=== PATIENT | male | born 1970 | race African-American/Black ===

== ENCOUNTER 2017-06-04 08:51 | Inpatient (IN) | payer OTHER ==
[~2017-06-04] VITALS: Ht 177.8 cm; Wt 101.5 kg
[~2017-06-04 08:51] MED LIST: AMLO5 PO; ESCI10TA PO; FLUO-1 PO; LURA40 PO; PANT40TA3 PO; QUET1TAB7 PO; SERO100T PO; TRAZ50TA12 PO
[2017-06-04 08:53] VITALS: BP 185/114; PULSE 103; RESP 16; TEMP 97.9; O2SAT 97
[2017-06-04] MEDS ORDERED: QUET5TAB PO (09:14)
[2017-06-04] MEDS ORDERED: QUET1TAB11 PO (09:14)
[2017-06-04] MEDS ORDERED: HYDR12.56 PO (09:14)
--- NOTE | 2017-06-04 09:18 | PD ---
HPI Chief Complaint: Psychiatric Symptoms Time Seen by Provider: 09:14 Travel History International Travel<30 days: No Contact w/Intl Traveler<30days: No Traveled to known affect area: No History of Present Illness HPI 47-year-old male presents to emergency Department voluntarily for psychiatric evaluation. He is having suicidal thoughts. Has a plan of jumping off a bridge because he cannot swim or taking pills. History of suicidal attempt. Reports feeling severely depressed and has been crying uncontrollably. Says his medications aren't working for him. Denies visual or auditory hallucinations. Denies illicit drug use. Reports occasional alcohol use. Says he has general pain all over which he says comes and goes and is normal. Denies any other medical complaints. Denies recent illness with fever, chills, nausea, vomiting. Denies chest pain, shortness of breath, abdominal pain, change in urinary or stool. PFSH Past Medical History Depression: Yes Cancer: No Cardiovascular Problems: Yes (HTN) Diminished Hearing: No Endocrine: No Genitourinary: No Hypertension: Yes Immune Disorder: No Musculoskeletal: No Neurologic: No Psychiatric: Yes Reproductive: No Respiratory: No ?: Not Past Surgical History Cholecystectomy: Yes (2007) Social History Alcohol Use: Yes (occasional) Tobacco Use: No Substance Use: No Allergies-Medications (Allergen,Severity, Reaction): Coded Allergies: No Known Allergies (Unverified , 09/03/12) Reported Meds & Prescriptions Reported Meds & Active Scripts Active Reported Hydrochlorothiazide 12.5 Mg Tab 12.5 Mg PO DAILY Quetiapine (Quetiapine Fumarate) 50 Mg Tab 50 Mg PO DAILY Quetiapine (Quetiapine Fumarate) 400 Mg Tab 450 Mg PO HS Review of Systems Except as stated in HPI: all other systems reviewed are Neg Physical Exam Narrative GENERAL: Well-nourished, well-developed black male patient, in no acute distress SKIN: Warm and dry. HEAD: Atraumatic. Normocephalic. EYES: Pupils equal and round. ENT: Mucosa pink and moist. NECK: Supple. Trachea midline. CARDIOVASCULAR: Regular rate and rhythm. No murmur appreciated. RESPIRATORY: No accessory muscle use. Clear to auscultation. Breath sounds equal bilaterally. GASTROINTESTINAL: Abdomen soft, non-tender, nondistended. Hepatic and splenic margins not palpable. Bowel sounds are active 4 quadrants. MUSCULOSKELETAL: No obvious deformities. No clubbing. No cyanosis. No edema. BACK: No CVA tenderness. NEUROLOGICAL: Awake and alert. Oriented 3. No obvious cranial nerve deficits. Motor grossly within normal limits. Normal speech. Moves all extremities. 5/5 strength to all extremities. PSYCHIATRIC: No delusional thought processes. No hallucinations. Data Data Last Documented VS Vital Signs Date Time Temp Pulse Resp B/P (MAP) Pulse Ox O2 Delivery O2 Flow Rate FiO2 06/04/17 08:53 97.9 103 16 185/114 (137) 97 Orders Orders Complete Blood Count With Diff (06/04/17 09:17) Comprehensive Metabolic Panel (06/04/17 09:17) Psych Screen (06/04/17 09:17) Drug Screen, Random Urine (06/04/17 09:17) Alcohol (Ethanol) (06/04/17 09:17) Salicylates (Aspirin) (06/04/17 09:17) Tylenol (Acetaminophen) (06/04/17 09:17) Ibuprofen (Motrin) (06/04/17 09:30) Labs Laboratory Tests Test 06/04/17 09:20 [facility] Medical Decision Making Medical Screen Exam Complete: Yes Emergency Medical Condition: Yes Medical Record Reviewed: Yes Differential Diagnosis Encounter for psychiatric evaluation, medical clearance for psychiatric evaluation, suicidal ideation Narrative Course 47-year-old male presents voluntarily for psychiatric evaluation for suicidal ideation. Patient complaining of generalized body pain which she says is normal for him and comes and goes. Ibuprofen ordered. Physical examination and vital signs are essentially unremarkable. Patient has no medical complaints to report. Psych screen has been ordered. If the laboratory results are unremarkable, the patient will be medically cleared for psychiatric evaluation and disposition. Diagnosis Primary Impression: Medical clearance for psychiatric admission Condition: Stable AnishajolantaNgoc FONG Jun 04, 2017 09:18
[2017-06-04] MEDS ORDERED: IBUPROFEN 800 MG TAB PO ONE (09:30)
[2017-06-04 09:35] LABS: AUTOMATED NEUTROPHIL # 3.8 TH/MM3 (1.8-7.7); BASOPHIL % 0.8 % (0.0-2.0); EOSINOPHIL # 0.2 TH/MM3 (0-0.4); EOSINOPHIL % 2.7 % (0.0-4.0); HEMO FLAGS DIFF FINAL; LYMPH % 24.3 % (9.0-44.0); LYMPHOCYTE # 1.4 TH/MM3 (1.0-4.8); MEAN CELL VOLUME 87.2 FL (80.0-100.0); MEAN CORPUSCULAR HEMOGLOBIN 29.3 PG (27.0-34.0); MEAN CORPUSCULAR HGB CONC 33.6 % (32.0-36.0); MONO % 5.8 % (0.0-8.0); NEUT % 66.4 % (16.0-70.0); PLATELET COUNT 218 TH/MM3 (150-450); RED BLOOD COUNT 4.36 MIL/MM3 (4.50-5.90); RED CELL DISTRIBUTION WIDTH 14.4 % (11.6-17.2); WHITE BLOOD COUNT 5.7 TH/MM3 (4.0-11.0)
[2017-06-04 09:37] VITALS: BP 157/93; PULSE 73; RESP 18; O2SAT 100
[2017-06-04 09:51] LABS: ANION GAP 8 MEQ/L (5-15); AST (GOT) 21 U/L (15-37); BICARBONATE 25.4 MEQ/L (21.0-32.0); BLOOD UREA NITROGEN 9 MG/DL (7-18); CHLORIDE 107 MEQ/L (98-107); GLOMERULAR FILTRATION RATE 91 ML/MIN (>89); POTASSIUM 3.7 MEQ/L (3.5-5.1); SODIUM (NA) 140 MEQ/L (136-145)
[2017-06-04 09:55] LABS: ALKALINE PHOSPHATASE 61 U/L (45-117); ALT (GPT) 23 U/L (12-78); TOTAL BILIRUBIN ADULT 0.4 MG/DL (0.2-1.0)
[2017-06-04 10:05] LABS: ACETAMINOPHEN LESS THAN 2.0 MCG/ML (10.0-30.0); ALCOHOL LESS THAN 3 MG/DL (0-5)
[2017-06-04 11:58] VITALS: BP 146/87; PULSE 65; RESP 17; O2SAT 100
[2017-06-04 14:48] VITALS: BP 153/95; PULSE 63; RESP 17; O2SAT 100
--- NOTE | 2017-06-04 15:52 | PD ---
History of Present Illness Chief Complaint: Psychiatric Symptoms Time Seen by Provider: 15:05 Travel History International Travel<30 Days: No Contact w/Intl Traveler<30days: No Known affected area: No Legal Status Legal Status: Voluntary History of Present Illness: History of Present Illness 47-year-old male with history of bipolar disorder, who presents to emergency Department voluntarily for psychiatric evaluation. He reports that for the past 2 -to 3 months he has been experiencing increase in psychiatric symptoms with increase in sadness, increase difficulty with sleep, anhedonia, decreased energy, irritability, difficulty being around people crying episodes, increase in thoughts of wanting to end his life with thoughts of jumping off a bridge since he cannot swim or of taking his pills. He increased his psychiatric medications on his own but found no benefit and has continued to feel depressed. Today he reports increase in suicidal ideation as well as homicidal ideation with thoughts of " wanting to hurt other people". He reports that for the past few days he has been going to different bridges. He denies that he made any attempts. He reports that he has been compliant with prescribed medications and is followed at the [place] outpatient clinic. He does report that his medications were changed at the [facility] and he is only prescribed Seroquel 50 mg po BID and Seroquel 300 mg po at [facility]. Denies any alcohol use. Only identifiable stressor is the breakup of his relationship with his girlfriend 1 month ago. Patient has one previous psychiatric admission to [facility] in 2016 under the care of Dr. Tarango after a suicide attempt by overdose. Current toxicology is negative for any substances. Denies alcohol use. PFSH Past Medical History Depression: Yes Cancer: No Cardiovascular Problems: Yes (HTN) Diminished Hearing: No Endocrine: No Genitourinary: No Hypertension: Yes Immune Disorder: No Musculoskeletal: No Neurologic: No Psychiatric: Yes Reproductive: No Respiratory: No ?: Not Past Surgical History Cholecystectomy: Yes (2007) Psychiatric History Psychiatric History Hx Psychiatric Treatment: Hospitalized in 2016 after sucide attempt by overdose. Followed psychiatric care at the [place] clinic. . 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 Served in the [employer] from 1988 to 1992 and from 1996 to 2002. Hx Alcohol Use: Yes (occasional) Hx Tobacco Use: No Hx Substance Use: No Hx of Substance Use Treatment: No Family Psychiatric History Negative Allergies-Medications (Allergen,Severity, Reaction): Coded Allergies: No Known Allergies (Unverified , 09/03/12) Reported Meds & Prescriptions Reported Meds & Active Scripts Active Reported Hydrochlorothiazide 12.5 Mg Tab 12.5 Mg PO DAILY Quetiapine (Quetiapine Fumarate) 50 Mg Tab 50 Mg PO DAILY Quetiapine (Quetiapine Fumarate) 400 Mg Tab 450 Mg PO HS Review of Systems Except as stated in HPI: all other systems reviewed are Neg Mental Status Examination Appearance: Appropriate, Well dressed/well groomed Consciousness: Alert Orientation: x4 Motor Activity: Normal gait Speech: Unremarkable Language: Adequate Fund of Knowledge: Adequate Attention and Concentration: Adequate Memory: Unremarkable Mood: Sad, Irritable Affect: Sad Thought Process & Associations: Intact, Logical, Goal directed Thought Content: Appropriate Hallucination Type: None Delusion Type: None Suicidal Ideation: Yes Suicidal Plan: Yes (to overdose or jump off bridge. ) Suicidal Intention: No Homicidal Ideation: Yes Homicidal Plan: No Homicidal Intention: No Insight: Adequate Judgment: Adequate [facility] Medical Decision Making Medical Record Reviewed: Yes Assessment/Plan 47-year-old male with history of bipolar disorder who presents to emergency Department voluntarily for psychiatric evaluation. He reports that for the past 2 -to 3 months he has been experiencing increase in psychiatric symptoms including increase in sadness, increase difficulty with sleep, anhedonia, decreased energy, irritability, difficulty being around people crying episodes , increase in thoughts of wanting to end his life with thoughts of jumping off a bridge since he cannot swim or of taking his pills. Today he reports increase in suicidal ideation as well as homicidal ideation with thoughts of " wanting to hurt other people". He reports that for the past few days he has been going to different bridges. He denies that he made any attempts. He reports that he has been compliant with prescribed medications and is followed at the [place] outpatient clinic. He meets criteria for inpatient psychiatric treatment and contracts for safety while in [place]. he will be admitted to psychiatry for further evaluation, medication adjustment, to maintain safety. Remains on a voluntary basis. Orders Orders Complete Blood Count With Diff (06/04/17 09:17) Comprehensive Metabolic Panel (06/04/17 09:17) Psych Screen (06/04/17 09:17) Drug Screen, Random Urine (06/04/17:17) Alcohol (Ethanol) (06/04/17 09:17) Salicylates (Aspirin) (06/04/17 09:17) Tylenol (Acetaminophen) (06/04/17 09:17) Ibuprofen (Motrin) (06/04/17 09:30) Results Vital Signs Date Time Temp Pulse Resp B/P (MAP) Pulse Ox O2 Delivery O2 Flow Rate FiO2 06/04/17 14:48 63 17 153/95 (114) 100 06/04/17 11:58 65 17 146/87 (106) 100 Room Air 06/04/17 09:37 73 18 157/93 (114) 100 Room Air 06/04/17 08:53 97.9 103 16 185/114 (137) 97 Laboratory Tests Test 06/04/17 09:20 06/04/17 09:25 White Blood Count 5.7 Red Blood Count 4.36 Hemoglobin 12.8 Hematocrit 38.0 Mean Corpuscular Volume 87.2 Mean Corpuscular Hemoglobin 29.3 Mean Corpuscular Hemoglobin Concent 33.6 Red Cell Distribution Width 14.4 Platelet Count 218 Mean Platelet Volume 8.4 Neutrophils (%) (Auto) 66.4 Lymphocytes (%) (Auto) 24.3 Monocytes (%) (Auto) 5.8 Eosinophils (%) (Auto) 2.7 Basophils (%) (Auto) 0.8 Neutrophils # (Auto) 3.8 Lymphocytes # (Auto) 1.4 Monocytes # (Auto) 0.3 Eosinophils # (Auto) 0.2 Basophils # (Auto) 0.0 CBC Comment DIFF FINAL Differential Comment Blood Urea Nitrogen 9 Creatinine 1.06 Random Glucose 101 Total Protein 7.6 Albumin 3.9 Calcium Level 8.7 Alkaline Phosphatase 61 Aspartate Amino Transf (AST/SGOT) 21 Alanine Aminotransferase (ALT/SGPT) 23 Total Bilirubin 0.4 Sodium Level 140 Potassium Level 3.7 Chloride Level 107 Carbon Dioxide Level 25.4 Anion Gap 8 Estimat Glomerular Filtration Rate 91 Salicylates Level 2.2 Acetaminophen Level LESS THAN 2.0 Ethyl Alcohol Level LESS THAN 3 Urine Opiates Screen NEG Urine Barbiturates Screen NEG Urine Amphetamines Screen NEG Urine Benzodiazepines Screen NEG Urine Cocaine Screen NEG Urine Cannabinoids Screen NEG Diagnosis Primary Impression: bipolar disorder Admitting Information Admitting Physician Requests: Admit Condition: Stable Lu Garg [facility] Jun 04, 2017 15:52
[2017-06-04] MEDS ORDERED: MAGNESIUM HYDROXIDE SUSP 30 ML CUP PO PRN (16:30)
[2017-06-04] MEDS ORDERED: ACETAMINOPHEN 325 MG TAB PO PRN (16:30)
[2017-06-04] MEDS ORDERED: ALUMINUM/MAGNESIUM/SIMETH 30 ML CUP PO PRN (16:30)
[2017-06-04 17:15] VITALS: BP 180/106; PULSE 64; RESP 16; TEMP 97.6; O2SAT 100
[2017-06-04] MEDS ORDERED: PILL SPLITTER OTHER PRN (17:30)
[2017-06-04] MEDS ORDERED: QUEtiapine FUMARATE 100 MG TAB PO SCH (21:00)
[2017-06-05 05:51] VITALS: BP 142/81; PULSE 70; RESP 18; TEMP 97.4; O2SAT 99
--- NOTE | 2017-06-05 08:41 | PD.CONS ---
[facility] By Reason for Consult hypertension management Primary Care Physician [facility] Diagnoses: History of Present Illness patient is a 47 y/o male with history of bipolar disorder and hypertension who was admitted to the psych unit because of suicidal thoughts. medicine was consulted for blood pressure management. he says that his blood pressure fluctuates at home. at the time of my evaluation he was in no distress. denies headache, chest pain or dizziness. still with some suicidal thoughts. Review of Systems Constitutional: DENIES: Fever, Weight loss, Chills, Night Sweats Eyes: DENIES: Blurred vision, Diplopia, Vision loss, Double Vision Ears, nose, mouth, throat: DENIES: Tinnitus, Vertigo, Throat pain, Epistaxis Respiratory: DENIES: Apneas, Cough, Snoring, Wheezing, Hemoptysis, Sputum production, Shortness of breath Cardiovascular: DENIES: Chest pain, Palpitations, Syncope, Dyspnea on Exertion , PND, Lower Extremity Edema, Orthopnea, Claudication Gastrointestinal: DENIES: Abdominal pain, Black stools, Bloody stools, Constipation, Diarrhea, Nausea, Vomiting, Difficulty Swallowing, Anorexia Genitourinary: DENIES: Urinary frequency, Urgency, Hematuria, Dysuria Musculoskeletal: DENIES: Joint pain, Muscle aches, Stiffness, Joint Swelling Integumentary: DENIES: Rash Neurologic: DENIES: Abnormal gait, Headache, Localized weakness, Paresthesias, Seizures, Speech Problems, Tremor, Poor Balance Psychiatric: COMPLAINS OF: Suicidal Ideation, DENIES: Anxiety, Confusion, Mood changes, Depression, Hallucinations, Agitation, Homicidal Ideation, Delusions Past Family Social History Allergies: Coded Allergies: No Known Allergies (Unverified , 09/03/12) Past Medical History hypertension bipolar disordere Past Surgical History cholecystectomy Reported Medications Hydrochlorothiazide 12.5 Mg Tab 12.5 Mg PO DAILY Quetiapine (Quetiapine Fumarate) 50 Mg Tab 50 Mg PO DAILY Quetiapine (Quetiapine Fumarate) 400 Mg Tab 450 Mg PO HS Active Ordered Medications Current Medications Ibuprofen (Motrin) 800 mg ONCE ONCE PO Last administered on 06/04/17t 09:38; Start 06/04/17 at 09:30; Stop 06/04/17 at 09:31; Status DC Acetaminophen (Tylenol) 650 mg Q4H PRN PO Pain 1-5 or Temp >101F; Start at 16:30 Magnesium Hydroxide (Milk Of Magnesia Liq) 30 ml DAILY PRN PO CONSTIPATION; Start 06/04/17 at 16:30 Al Hydrox/Mg Hydrox/Simethicone (Mag-Al Plus Susp Liq) 30 ml Q6H PRN PO DYSPEPSIA; Start 06/04/17 at 16:30 Hydrochlorothiazide (Microzide) 12.5 mg DAILY PO ; Start 06/05/17 at 09:00 Quetiapine Fumarate (SEROquel) 50 mg DAILY PO ; Start 06/05/17 at 09:00 Quetiapine Fumarate (SEROquel) 450 mg HS PO Last administered on 06/04/17t 21: 07; Start 06/04/17 at 21:00 Miscellaneous (Pill Splitter) 1 ea UNSCH PRN OTHER SEE LABEL COMMENTS; Start 06/04/17 at 17:30 Family History not relevant to this consult. Social History no smoking,drinking or drug abuse. Physical Exam Vital Signs Vital Signs Date Time Temp Pulse Resp B/P (MAP) Pulse Ox O2 Delivery O2 Flow Rate FiO2 06/05/17 05:51 97.4 70 18 142/81 (101) 99 06/04/17 17:15 97.6 64 16 180/106 (130) 100 06/04/17 14:48 63 17 153/95 (114) 100 06/04/17 11:58 65 17 146/87 (106) 100 Room Air 06/04/17 09:37 73 18 157/93 (114) 100 Room Air 06/04/17 08:53 97.9 103 16 185/114 (137) 97 Physical Exam GENERAL: This is a well-nourished, well-developed patient, in no apparent distress. SKIN: No rashes, ecchymoses or lesions. Cool and dry. HEAD: Atraumatic. Normocephalic. No temporal or scalp tenderness. EYES: Pupils equal round and reactive. Extraocular motions intact. No scleral icterus. No injection or drainage. ENT: Nose without bleeding, purulent drainage or septal hematoma. Throat without erythema, tonsillar hypertrophy or exudate. Uvula midline. Airway patent. NECK: Trachea midline. No JVD or lymphadenopathy. Supple, nontender, no meningeal signs. CARDIOVASCULAR: Regular rate and rhythm without murmurs, gallops, or rubs. RESPIRATORY: Clear to auscultation. Breath sounds equal bilaterally. No wheezes , rales, or rhonchi. GASTROINTESTINAL: Abdomen soft, non-tender, nondistended. No hepato-splenomegaly , or palpable masses. No guarding. MUSCULOSKELETAL: Extremities without clubbing, cyanosis, or edema. No joint tenderness, effusion, or edema noted. No calf tenderness. Negative Homans sign bilaterally. NEUROLOGICAL: Awake and alert. Cranial nerves II through XII intact. Motor and sensory grossly within normal limits. Five out of 5 muscle strength in all muscle groups. Normal speech. Laboratory Laboratory Tests Test 06/04/17 09:20 06/04/17 09:25 White Blood Count 5.7 Red Blood Count 4.36 Hemoglobin 12.8 Hematocrit 38.0 Mean Corpuscular Volume 87.2 Mean Corpuscular Hemoglobin 29.3 Mean Corpuscular Hemoglobin Concent 33.6 Red Cell Distribution Width 14.4 Platelet Count 218 Mean Platelet Volume 8.4 Neutrophils (%) (Auto) 66.4 Lymphocytes (%) (Auto) 24.3 Monocytes (%) (Auto) 5.8 Eosinophils (%) (Auto) 2.7 Basophils (%) (Auto) 0.8 Neutrophils # (Auto) 3.8 Lymphocytes # (Auto) 1.4 Monocytes # (Auto) 0.3 Eosinophils # (Auto) 0.2 Basophils # (Auto) 0.0 CBC Comment DIFF FINAL Differential Comment Blood Urea Nitrogen 9 Creatinine 1.06 Random Glucose 101 Total Protein 7.6 Albumin 3.9 Calcium Level 8.7 Alkaline Phosphatase 61 Aspartate Amino Transf (AST/SGOT) 21 Alanine Aminotransferase (ALT/SGPT) 23 Total Bilirubin 0.4 Sodium Level 140 Potassium Level 3.7 Chloride Level 107 Carbon Dioxide Level 25.4 Anion Gap 8 Estimat Glomerular Filtration Rate 91 Salicylates Level 2.2 Acetaminophen Level LESS THAN 2.0 Ethyl Alcohol Level LESS THAN 3 Urine Opiates Screen NEG Urine Barbiturates Screen NEG Urine Amphetamines Screen NEG Urine Benzodiazepines Screen NEG Urine Cocaine Screen NEG Urine Cannabinoids Screen NEG Result Diagram: 06/04/1791906/04/17919 Assessment and Plan Assessment and Plan A/P - hypertension- not optimally controlled. continue HCTZ- start amlodipine- clonidine as needed. continue to monitor and adjust the regimen as needed. -bipolar disorder with suicidal thoughts- management per psych. thank you for the consult. Discussed Condition With the patient. Jose Telles MD Jun 05, 2017 08:41
[2017-06-05] MEDS ORDERED: QUEtiapine FUMARATE 25 MG TAB PO SCH (09:00)
[2017-06-05] MEDS: HYDROCHLOROTHIAZIDE 12.5 MG CAP PO SCH (09:28)
[2017-06-05] MEDS: amLODIPine BESYLATE 5 MG TAB PO SCH (09:31)
[2017-06-05 10:26] LABS: ANION GAP 6 MEQ/L (5-15); BICARBONATE 25.9 MEQ/L (21.0-32.0); BLOOD UREA NITROGEN 12 MG/DL (7-18); CHLORIDE 107 MEQ/L (98-107); GLOMERULAR FILTRATION RATE 82 ML/MIN (>89); POTASSIUM 3.8 MEQ/L (3.5-5.1); SODIUM (NA) 139 MEQ/L (136-145)
[2017-06-05 10:36] LABS: HDL CHOLESTEROL 38.6 MG/DL (40.0-60.0); LDL CHOLESTEROL 69 MG/DL (0-99)
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
--- NOTE | 2017-06-05 16:03 | EKG ---
Date Performed: 06/05/2017 Time Performed: 12:49:51 PTAGE: 47 years EKG: Sinus rhythm LEFT VENTRICULAR HYPERTROPHY AND ST-T CHANGE ABNORMAL ECG PREVIOUS TRACING : 07/16/2016 20.39 Compared to prior tracing no significant change DOCTOR: Ramon Wang Interpretating Date/Time 06/05/2017 16:03:14
[2017-06-05] MEDS: QUEtiapine FUMARATE 25 MG TAB PO SCH (16:10)
[2017-06-05 16:12] VITALS: BP 138/83; PULSE 63
[2017-06-05 17:45] LABS: HEMOGLOBIN A1a 1.6 %; HEMOGLOBIN A1b 1.4 %; HEMOGLOBIN Ao 85.7 %; HEMOGLOBIN LA1C 1.8 %; HEMOGLOBIN P3 3.3 %
[2017-06-05 18:39] VITALS: BP 184/77; PULSE 76; RESP 17; TEMP 98.3; O2SAT 99
[2017-06-05] MEDS: QUEtiapine FUMARATE 200 MG TAB PO SCH (21:00)
[2017-06-06] MEDS: QUEtiapine FUMARATE 25 MG TAB PO SCH ×2 (06:00→16:00)
[2017-06-06 06:03] VITALS: BP 130/76; PULSE 76; RESP 18; TEMP 97.3
[2017-06-06] MEDS: amLODIPine BESYLATE 5 MG TAB PO SCH (08:42)
[2017-06-06] MEDS: HYDROCHLOROTHIAZIDE 12.5 MG CAP PO SCH (08:42)
[2017-06-06] MEDS: SERTRALINE HCL 50 MG TAB PO SCH (10:45)
--- NOTE | 2017-06-06 11:12 | HHI.PR ---
Subjective Remarks still with depressed mood. no chest pain, headache or dizziness. BP trend noted. Objective Vitals Vital Signs Date Time Temp Pulse Resp B/P (MAP) Pulse Ox O2 Delivery O2 Flow Rate FiO2 06/06/17 06:03 97.3 76 18 130/76 (94) 06/05/17 18:39 98.3 76 17 184/77 (112) 99 06/05/17 16:12 63 138/83 (101) Result Diagram: 06/04/17 0920 06/05/17 0945 Objective Remarks GENERAL: This is a well-nourished, well-developed patient, in no apparent distress. CARDIOVASCULAR: Regular rate and regular rhythm without murmurs, gallops, or rubs. RESPIRATORY: Clear to auscultation. Breath sounds equal bilaterally. No wheezes , rales, or rhonchi. GASTROINTESTINAL: Abdomen soft, non-tender, nondistended. Normal, active bowel sounds MUSCULOSKELETAL: Extremities without clubbing, cyanosis, or edema. NEURO: Alert & Oriented x4 to person, place, time, situation. Moves all ext x4 Medications and IVs Current Medications Ibuprofen (Motrin) 800 mg ONCE ONCE PO Last administered on 06/04/17 09:38; Start 06/04/17 at 09:30; Stop 06/04/17 at 09:31; Status DC Acetaminophen (Tylenol) 650 mg Q4H PRN PO Pain 1-5 or Temp >101F; Start at 16:30 Magnesium Hydroxide (Milk Of Magnesia Liq) 30 ml DAILY PRN PO CONSTIPATION; Start 06/04/17 at 16:30 Al Hydrox/Mg Hydrox/Simethicone (Mag-Al Plus Susp Liq) 30 ml Q6H PRN PO DYSPEPSIA; Start 06/04/17 at 16:30 Hydrochlorothiazide (Microzide) 12.5 mg DAILY PO Last administered on 08:42; Start 06/05/17 at 09:00 Quetiapine Fumarate (SEROquel) 50 mg DAILY PO Last administered on 06/05/17 09:28; Start 06/05/17 at 09:00; Stop 06/05/17 at 11:40; Status DC Quetiapine Fumarate (SEROquel) 450 mg HS PO Last administered on 06/04/17 21: 07; Start 06/04/17 at 21:00; Stop 06/05/17 at 11:40; Status DC Miscellaneous (Pill Splitter) 1 ea UNSCH PRN OTHER SEE LABEL COMMENTS; Start 06/04/17 at 17:30 Amlodipine Besylate (Norvasc) 5 mg DAILY PO Last administered on 06/06/17 08: 42; Start 06/05/17 at 09:00 Clonidine (Catapres) 0.1 mg Q8HR PRN PO SBP> OR = 180, DBP> OR = 100; Start at 08:45 Quetiapine Fumarate (SEROquel) 50 mg DAILY@0600,1600 PO Last administered on 06:00; Start 06/05/17 at 16:00 Quetiapine Fumarate (SEROquel) 400 mg HS PO Last administered on 06/05/17 21: 00; Start 06/05/17 at 21:00 Hydroxyzine HCl (Atarax) 50 mg Q6H PRN PO ANXIETY; Start 06/05/17 at 12:00 Sertraline HCl (Zoloft) 25 mg DAILY PO ; Start 06/06/17 at 10:45; Status UNV A/P Assessment and Plan A/P - hypertension- overall better . continue HCTZ and amlodipine- clonidine as needed. continue to monitor and adjust the regimen as needed; will increase amlodipine tomorrow if BP not optimally controlled. -bipolar disorder with suicidal thoughts- management per psych. Jose Telles MD Jun 06, 2017 11:12
--- NOTE | 2017-06-06 13:12 | PD.TTN ---
Patient Problems 1. Discharge planning 2. Medication compliance 3. Knowledge deficit 4. Lack of coping skills Progress Toward Goals Provider Present: Dr. Tamie Ahuja Provider Input: Patient will have added medication of Wellbutrin and an increase of [place]requ[place] to help with sleep. Nurse(s) Input: Patient endorses lack of sleep and recieved PRN of anti-anxiety medication to help with sleep. Patient has no behavioral issues on the unit. Psychiatric Counselors Present: ASHLEY Weber Psych Therapist Input: Patient has low and does not endorse any change in mood. Patient states that he continues to feel irritible and aggitated during the day. Patient states that he is unable to sleep well at night as well. Group Spec/RT/OT/HU Present: Jose Galdamez OT Group Spec/RT/OT/HU Input: Patient does not attend group. Jessica Castillo [facility]der[facility] Jun 06, 2017 13:12
--- NOTE | 2017-06-06 14:35 | HHI.PYPN ---
Subjective Remarks Patient seen for follow-up, chart reviewed. Patient found playing cards and the day room but was able to engage in interview with scientific writer today. Patient states that he had difficulty sleeping last evening but did not ask for medications available to him for the same. He states that he will try to take medications this unit to help him sleep. Patient stated that his mood continues to be "irritated and aggravated" and recalls having crying spells in the morning prior to his admission. Patient states that he continues to have suicide ideations, last time being this morning and yesterday which lasted all day. Patient reports tolerate medications well and agreed to starting antidepressant medication today. Chief Complaint: depression Review of Systems Except as stated in HPI: all other systems reviewed are Neg Mental Status Examination Appearance: Appropriate, Well dressed/well groomed Consciousness: Alert Orientation: x4 Motor Activity: Normal gait Speech: Unremarkable Language: Adequate Fund of Knowledge: Adequate Attention and Concentration: Adequate Memory: Unremarkable Mood: Sad Affect: Sad, Other Thought Process & Associations: Logical, Linear Thought Content: Appropriate Hallucination Type: Auditory (his name being called. No other hallucinatory material.) Delusion Type: None Suicidal Ideation: Yes Suicidal Plan: No Suicidal Intention: No Homicidal Ideation: No Homicidal Plan: No Homicidal Intention: No Insight: Adequate Judgment: Adequate Results Vitals/IOs Vital Signs Date Time Temp Pulse Resp B/P (MAP) Pulse Ox O2 Delivery O2 Flow Rate FiO2 06/06/17 06:03 97.3 76 18 130/76 (94) 06/05/17 18:39 99 06/04/17 11:58 Room Air Assessment & Plan Problem List: (1) Bipolar disorder, current episode depressed, severe, without psychotic features ICD Codes: F31.4 - Bipolar disorder, current episode depressed, severe, without psychotic features (2) Chronic post-traumatic stress disorder (PTSD) ICD Codes: F43.12 - Post-traumatic stress disorder, chronic Assessment & Plan Patient at this time continues to report depressed mood along with suicide ideations. We'll start sertraline 25 mg by mouth daily with upward titration for depression and PTSD, will continue quetiapine 100 mg daily/400 mg at bedtime for mood stabilization. Continue with her medications. Discharge planning in progress Justification for Cont. Inpt. At risk for further decompensation if at lower level of care Discharge Planning Patient was discharged back to her residence was psychiatrically stable. Request HC Surrog/Guard Advoc?: Peewee Hussein MD Jun 06, 2017 14:35
[2017-06-06] MEDS: cloNIDine HCL 0.1 MG TAB PO PRN (17:53)
[2017-06-06] MEDS: hydrOXYzine HCL 50 MG TAB PO PRN (17:53)
[2017-06-06 17:55] VITALS: BP 163/100; PULSE 75; RESP 16
--- NOTE | 2017-06-06 21:13 | MG ---
cc: LEX VARGHESE M.D. Lab No: Date: 06/06/17 Age: 47 Sex: M Race: REQUESTING PHYSICIAN Dr. Mccormick HISTORY An EEG was obtained on this 47-year-old patient being evaluated for depression. DESCRIPTION The EEG shows prominent 10 per second alpha rhythms the central and posterior head regions. There is low amplitude beta rhythms frontally. In drowsiness the beta activity becomes more widespread and dominant. In hyperventilation the patient is awake and there are no significant change. Photic stimulation showed mild driving response bilaterally. INTERPRETATION Normal awake and drowsy EEG. Lex Varghese MD OFC/EO /6:39 PM /9:06 PM
[2017-06-06 21:15] LABS: AUTOMATED NEUTROPHIL # 2.9 TH/MM3 (1.8-7.7); BASOPHIL % 0.9 % (0.0-2.0); EOSINOPHIL # 0.1 TH/MM3 (0-0.4); EOSINOPHIL % 2.6 % (0.0-4.0); HEMO FLAGS DIFF FINAL; LYMPHOCYTE # 2.1 TH/MM3 (1.0-4.8); MEAN CELL VOLUME 88.5 FL (80.0-100.0); MEAN CORPUSCULAR HEMOGLOBIN 29.7 PG (27.0-34.0); MEAN CORPUSCULAR HGB CONC 33.6 % (32.0-36.0); MONO % 6.4 % (0.0-8.0); NEUT % 52.1 % (16.0-70.0); PLATELET COUNT 206 TH/MM3 (150-450); RED BLOOD COUNT 4.41 MIL/MM3 (4.50-5.90); RED CELL DISTRIBUTION WIDTH 14.2 % (11.6-17.2); WHITE BLOOD COUNT 5.5 TH/MM3 (4.0-11.0)
[2017-06-06 21:39] LABS: FERRITIN 71 NG/ML (26-388); FREE T4 0.72 NG/DL (0.76-1.46); TRANSFERRIN IRON PROFILE 228 MG/DL (200-360)
[2017-06-06] MEDS: QUEtiapine FUMARATE 200 MG TAB PO SCH (22:47)
[2017-06-07 05:13] VITALS: BP 132/66; PULSE 70; RESP 16; TEMP 97.8; O2SAT 98
[2017-06-07] MEDS: QUEtiapine FUMARATE 25 MG TAB PO SCH ×2 (06:14→15:20)
[2017-06-07] MEDS: HYDROCHLOROTHIAZIDE 12.5 MG CAP PO SCH (08:40)
[2017-06-07] MEDS: SERTRALINE HCL 50 MG TAB PO SCH (08:40)
[2017-06-07] MEDS: amLODIPine BESYLATE 5 MG TAB PO SCH (08:44)
[2017-06-07 09:50] VITALS: BP 147/74; PULSE 79; RESP 16
[2017-06-07] MEDS: cloNIDine HCL 0.1 MG TAB PO PRN (15:23)
[2017-06-07] MEDS: hydrOXYzine HCL 50 MG TAB PO PRN (15:23)
--- NOTE | 2017-06-07 16:17 | HHI.PYPN ---
Subjective Remarks Patient seen for follow, chart review. Patient found in the room participate in group was able to interact with writer technical publications for interview today. Patient states that he has been feeling "up and down", reporting having less crying spells in the morning, continues to have suicide ideations last time being this morning which last for a while. Patient reports having had much difficulty with sleep last night stating that he was able to go to sleep at 5 AM but was later woken up by nursing staff to check her vitals. Chief Complaint: depression Review of Systems Except as stated in HPI: all other systems reviewed are Neg Mental Status Examination Appearance: Appropriate, Well dressed/well groomed Consciousness: Alert Orientation: x4 Motor Activity: Normal gait Speech: Unremarkable Language: Adequate Fund of Knowledge: Adequate Attention and Concentration: Adequate Memory: Unremarkable Mood: Sad, Other ("up and down") Affect: Sad, Other Thought Process & Associations: Logical, Linear Thought Content: Appropriate Hallucination Type: None Delusion Type: None Suicidal Ideation: Yes Suicidal Plan: No Suicidal Intention: No Homicidal Ideation: No Homicidal Plan: No Homicidal Intention: No Insight: Adequate Judgment: Adequate Results Labs Test 06/06/17 20:45 White Blood Count 5.5 TH/MM3 Red Blood Count 4.41 MIL/MM3 Hemoglobin 13.1 GM/DL Hematocrit 39.0 % Mean Corpuscular Volume 88.5 FL Mean Corpuscular Hemoglobin 29.7 PG Mean Corpuscular Hemoglobin Concent 33.6 % Red Cell Distribution Width 14.2 % Platelet Count 206 TH/MM3 Mean Platelet Volume 8.4 FL Neutrophils (%) (Auto) 52.1 % Lymphocytes (%) (Auto) 38.0 % Monocytes (%) (Auto) 6.4 % Eosinophils (%) (Auto) 2.6 % Basophils (%) (Auto) 0.9 % Neutrophils # (Auto) 2.9 TH/MM3 Lymphocytes # (Auto) 2.1 TH/MM3 Monocytes # (Auto) 0.4 TH/MM3 Eosinophils # (Auto) 0.1 TH/MM3 Basophils # (Auto) 0.0 TH/MM3 CBC Comment DIFF FINAL Differential Comment Iron Level 45 MCG/DL Total Iron Binding Capacity 319 MCG/DL Percent Iron Saturation 14.1 % Ferritin 71 NG/ML Free Thyroxine 0.72 NG/DL Thyroid Stimulating Hormone 3rd Gen 0.831 uIU/ML Vitals/IOs Vital Signs Date Time Temp Pulse Resp B/P (MAP) Pulse Ox O2 Delivery O2 Flow Rate FiO2 06/07/17 09:50 79 16 147/74 (98) 06/07/17 05:13 97.8 98 06/04/17 11:58 Room Air Assessment & Plan Problem List: (1) Bipolar disorder, current episode depressed, severe, without psychotic features ICD Codes: F31.4 - Bipolar disorder, current episode depressed, severe, without psychotic features (2) Chronic post-traumatic stress disorder (PTSD) ICD Codes: F43.12 - Post-traumatic stress disorder, chronic Assessment & Plan Patient continues to have depressed mood along with difficulty with sleep and continues to endorse suicidal ideations with slightly less intensity. We'll increase sertraline to 50 mg by mouth daily continue quetiapine, will start zolpidem 5 mg by mouth at bedtime for sleep disturbance. Continue to encourage participation in groups and activities while on the unit. Justification for Cont. Inpt. At risk for further decompensation if at lower level of care Discharge Planning Patient likely to return to his residence once psychiatric stable. Request HC Surrog/Guard Advoc?: No Peewee Ahuja MD Jun 07, 2017 16:17
[2017-06-07 16:46] VITALS: BP 154/101; PULSE 72; RESP 17; TEMP 98.3; O2SAT 99
[2017-06-07] MEDS: QUEtiapine FUMARATE 200 MG TAB PO SCH (21:34)
[2017-06-07] MEDS: ZOLPIDEM TARTRATE 5 MG TAB PO SCH (21:34)
[2017-06-08] MEDS: QUEtiapine FUMARATE 25 MG TAB PO SCH ×2 (05:46→15:37)
[2017-06-08 06:40] VITALS: BP 136/78; PULSE 69; RESP 16; TEMP 97.9
[2017-06-08] MEDS: HYDROCHLOROTHIAZIDE 12.5 MG CAP PO SCH (08:23)
[2017-06-08] MEDS: amLODIPine BESYLATE 5 MG TAB PO SCH (08:24)
[2017-06-08] MEDS ORDERED: SERTRALINE HCL 50 MG TAB PO SCH (09:00)
--- NOTE | 2017-06-08 13:14 | HHI.PYPN ---
Subjective Remarks Patient seen for follow-up, chart review. Patient find a room watching television able to engage in interview today. Patient states having slept much better last evening and felt rested. Patient states that his mood continues to be "up and down" and this morning noted to be a little bit irritated but was able to walk away from the environment. Patient states that he feels currently okay continues to have suicidal ideation but noted to be less intense. Patient states that he continues to participate in groups and activities, eating and drinking well, and adverse drug reactions to medications. Patient reported having talked to his friends/process over the phone yesterday which went well. Chief Complaint: depression Review of Systems Except as stated in HPI: all other systems reviewed are Neg Mental Status Examination Appearance: Appropriate, Well dressed/well groomed Consciousness: Alert Orientation: x4 Motor Activity: Normal gait Speech: Unremarkable Language: Adequate Fund of Knowledge: Adequate Attention and Concentration: Adequate Memory: Unremarkable Mood: Sad, Other ("up and down") Affect: Other (restricted) Thought Process & Associations: Logical, Linear Thought Content: Appropriate Hallucination Type: None Delusion Type: None Suicidal Ideation: Yes Suicidal Plan: No Suicidal Intention: No Homicidal Ideation: No Homicidal Plan: No Homicidal Intention: No Insight: Adequate Judgment: Adequate Results Vitals/IOs Vital Signs Date Time Temp Pulse Resp B/P (MAP) Pulse Ox O2 Delivery O2 Flow Rate FiO2 06/08/17 06:40 97.9 69 16 136/78 (97) 06/07/17 16:46 99 06/04/17 11:58 Room Air Assessment & Plan Problem List: (1) Bipolar disorder, current episode depressed, severe, without psychotic features ICD Codes: F31.4 - Bipolar disorder, current episode depressed, severe, without psychotic features (2) Chronic post-traumatic stress disorder (PTSD) ICD Codes: F43.12 - Post-traumatic stress disorder, chronic Assessment & Plan Patient noted to have some improvement in mood, slept better but continues to have suicidal ideations which appear to be lessening now. We'll increase sertraline 100 mg by mouth daily, continue rest medications. Discharge planning in progress Justification for Cont. Inpt. At risk for further decompensation if at lower level of care Discharge Planning Patient likely return back to his residence was psychiatrically stable Request HC Surrog/Guard Advoc?: Peewee Hussein MD Jun 08, 2017 13:13
[2017-06-08 18:12] VITALS: BP 157/87; PULSE 75; RESP 18; TEMP 98.3; O2SAT 98
[2017-06-08] MEDS: hydrOXYzine HCL 50 MG TAB PO PRN (21:32)
[2017-06-08] MEDS: ZOLPIDEM TARTRATE 5 MG TAB PO SCH (21:32)
[2017-06-08] MEDS: QUEtiapine FUMARATE 200 MG TAB PO SCH (21:32)
[2017-06-09 05:33] VITALS: BP 130/77; PULSE 81; RESP 17; TEMP 98.1; O2SAT 99
[2017-06-09] MEDS: QUEtiapine FUMARATE 25 MG TAB PO SCH ×2 (06:29→16:00)
[2017-06-09] MEDS: SERTRALINE HCL 100 MG TAB PO SCH (08:26)
[2017-06-09] MEDS: amLODIPine BESYLATE 5 MG TAB PO SCH (08:26)
[2017-06-09] MEDS: HYDROCHLOROTHIAZIDE 12.5 MG CAP PO SCH (08:26)
--- NOTE | 2017-06-09 11:08 | HHI.PR ---
Subjective Remarks Follow-up on patient with hypertension. Patient seen and examined. Patient denies any complaints at present. Denies any headache, vision changes, fever or chills. Denies any chest pain or shortness of breath. Denies any nausea, vomiting or abdominal pain. Objective Vitals Vital Signs Date Time Temp Pulse Resp B/P (MAP) Pulse Ox O2 Delivery O2 Flow Rate FiO2 06/09/17 05:33 98.1 81 17 130/77 (94) 99 06/08/17 18:12 98.3 75 18 157/87 (110) 98 Result Diagram: 06/06/17204406/05/17944 Objective Remarks GENERAL: Well-nourished, well-developed patient in NAD. Sitting up in the day room watching TV. Awake and alert. SKIN: Warm and dry. No rash. HEAD: Normocephalic. Atraumatic. EYES: EOMI. No scleral icterus. No injection or drainage. ENT: No nasal bleeding or discharge. Mucous membranes pink and moist. NECK: Supple. Trachea midline. CARDIOVASCULAR: Regular rate and rhythm. S1, S2 noted. No murmur appreciated. RESPIRATORY: No accessory muscle use. Clear to auscultation. Breath sounds equal bilaterally. GASTROINTESTINAL: Abdomen soft, non-tender, nondistended. Normoactive bowel sounds x4. MUSCULOSKELETAL: No obvious deformities. Extremities without clubbing, cyanosis , or edema. NEUROLOGICAL: Awake and alert. Able to move all extremities. Nonfocal. Normal speech. PSYCHIATRIC: Appropriate mood and affect; insight and judgment normal. Medications and IVs Current Medications Medications (Trade) Dose Ordered Sig/Lucila Route Start Time Stop Time Status Last Admin (Tylenol) 650 mg Q4H PRN PO 06/04/17 16:30 (Milk Of Magnesia Liq) 30 ml DAILY PRN PO 06/04/17 16:30 (Mag-Al Plus Susp Liq) 30 ml Q6H PRN PO 06/04/17 16:30 (Microzide) 12.5 mg DAILY PO 06/05/17 09:00 06/09/17 08:26 (Pill Splitter) 1 ea UNSCH PRN OTHER 06/04/17 17:30 (Norvasc) 5 mg DAILY PO 06/05/17 09:00 06/09/17 08:26 (Catapres) 0.1 mg Q8HR PRN PO 06/05/17 08:45 06/07/17 15:23 (SEROquel) 50 mg DAILY@0600,1600 PO 06/05/17 16:00 06/09/17 06:29 (SEROquel) 400 mg HS PO 06/05/17 21:00 06/08/17 21:32 (Atarax) 50 mg Q6H PRN PO 06/05/17 12:00 06/08/17 21:32 (Ambien) 5 mg HS PO 06/07/17 21:00 06/08/17 21:32 (Zoloft) 100 mg DAILY PO 06/09/17 09:00 06/09/17 08:26 A/P Assessment and Plan 47-year-old male with a history of bipolar disorder and hypertension admitted to inpatient psychiatric unit for suicidal thoughts. Hospitalist services consulted for medical management of hypertension. Bipolar disorder Depression Suicidal ideation - Management per psychiatric team - EEG normal awake and drowsy Hypertension - improved but still with elevated BP measurements - Increase to Norvasc 10 mg daily - Monitor BP Abnormal TSH - TSH value low on 06/05, within normal limits on 06/06. Free T4 0.72. Suspect sick euthyroid. - Recommend patient follow-up with PCP and have TSH rechecked in 6-8 weeks. DVT prophylaxis - Patient is ambulatory Discussed with patient and Denise Ly Jun 09, 2017 11:08
[2017-06-09] MEDS ORDERED: amLODIPine BESYLATE 5 MG TAB PO ONE (13:30)
--- NOTE | 2017-06-09 14:54 | HHI.PYPN ---
Subjective Remarks Patient was seen and case discussed with nursing. Patient is pleasant and cooperative with exam. Says he has been visiting with friends throughout his admission. Describes his mood today as mildly irritable and occasionally depressed. Occasionally has flashbacks. Suicidal ideation is fleeting with no intent or plan. Largely seclusive to self. Compliant with medications and tolerating them well. Chief Complaint: depression Mental Status Examination Appearance: Appropriate, Well dressed/well groomed Consciousness: Alert Orientation: x4 Motor Activity: Normal gait Speech: Hesitant, Slow Language: Adequate Fund of Knowledge: Adequate Attention and Concentration: Adequate Memory: Unremarkable Mood: Sad, Other ("up and down") Affect: Blunt Thought Process & Associations: Logical, Linear Thought Content: Appropriate Hallucination Type: None Delusion Type: None Suicidal Ideation: Yes (fleeting) Suicidal Plan: No Suicidal Intention: No Homicidal Ideation: No Homicidal Plan: No Homicidal Intention: No Insight: Adequate Judgment: Adequate Results Vitals/IOs Vital Signs Date Time Temp Pulse Resp B/P (MAP) Pulse Ox O2 Delivery O2 Flow Rate FiO2 06/09/17 05:33 98.1 81 17 130/77 (94) 99 Assessment & Plan Problem List: (1) Bipolar disorder, current episode depressed, severe, without psychotic features ICD Codes: F31.4 - Bipolar disorder, current episode depressed, severe, without psychotic features (2) Chronic post-traumatic stress disorder (PTSD) ICD Codes: F43.12 - Post-traumatic stress disorder, chronic Assessment & Plan Continue current treatment Justification for Cont. Inpt. Patient would decompensate in a less restrictive setting Request HC Surrog/Guard Advoc?: No Bryce Douglas DO Jun 09, 2017 14:54
[2017-06-09 18:00] VITALS: BP 177/105; PULSE 73; RESP 18; TEMP 98.6; O2SAT 100
[2017-06-09] MEDS: QUEtiapine FUMARATE 200 MG TAB PO SCH (21:42)
[2017-06-09] MEDS: ZOLPIDEM TARTRATE 5 MG TAB PO SCH (21:43)
[2017-06-10 05:40] VITALS: BP 121/74; PULSE 84; RESP 16; TEMP 97.8; O2SAT 97
[2017-06-10] MEDS: QUEtiapine FUMARATE 25 MG TAB PO SCH ×2 (06:04→15:52)
[2017-06-10] MEDS: SERTRALINE HCL 100 MG TAB PO SCH (08:21)
[2017-06-10] MEDS: amLODIPine BESYLATE 5 MG TAB PO SCH (08:21)
[2017-06-10] MEDS: HYDROCHLOROTHIAZIDE 12.5 MG CAP PO SCH (08:21)
--- NOTE | 2017-06-10 12:22 | HHI.PYPN ---
Subjective Remarks Patient was seen and case discussed with nursing. Patient's chief complaint today is poor sleep. Mood is "a little depressed." Patient says he is working through his mental health and notices an improvement compared to admission. Denies suicidal or homicidal ideations thought intent or plan. Patient says he becomes irritable when other patients gets loud and prefers to be alone Chief Complaint: depression Mental Status Examination Appearance: Appropriate, Well dressed/well groomed Consciousness: Alert Orientation: x4 Motor Activity: Normal gait Speech: Hesitant, Slow Language: Adequate Fund of Knowledge: Adequate Attention and Concentration: Adequate Memory: Unremarkable Mood: Sad, Other ("up and down") Affect: Blunt Thought Process & Associations: Logical, Linear Thought Content: Appropriate Hallucination Type: None Delusion Type: None Suicidal Ideation: Yes (fleeting) Suicidal Plan: No Suicidal Intention: No Homicidal Ideation: No Homicidal Plan: No Homicidal Intention: No Insight: Adequate Judgment: Adequate Results Vitals/IOs Vital Signs Date Time Temp Pulse Resp B/P (MAP) Pulse Ox O2 Delivery O2 Flow Rate FiO2 06/10/17 05:40 97.8 84 16 121/74 (90) 97 Assessment & Plan Problem List: (1) Bipolar disorder, current episode depressed, severe, without psychotic features ICD Codes: F31.4 - Bipolar disorder, current episode depressed, severe, without psychotic features (2) Chronic post-traumatic stress disorder (PTSD) ICD Codes: F43.12 - Post-traumatic stress disorder, chronic Assessment & Plan Increase Seroquel to 500 mg by mouth daily at bedtime Justification for Cont. Inpt. Patient will decompensate in a less restrictive setting Request HC Surrog/Guard Advoc?: No Bryce Douglas DO Jun 10, 2017 12:22
[2017-06-10 16:33] VITALS: BP 164/94; PULSE 80
[2017-06-10 16:53] VITALS: BP 164/95; PULSE 85; RESP 18; TEMP 98.3; O2SAT 100
[2017-06-10] MEDS: ZOLPIDEM TARTRATE 5 MG TAB PO SCH (21:41)
[2017-06-10] MEDS: QUEtiapine FUMARATE 100 MG TAB PO SCH (21:42)
[2017-06-11 05:33] VITALS: BP 129/72; PULSE 82; RESP 16; TEMP 97.8; O2SAT 98
[2017-06-11] MEDS: QUEtiapine FUMARATE 25 MG TAB PO SCH ×2 (05:40→15:26)
[2017-06-11] MEDS: amLODIPine BESYLATE 5 MG TAB PO SCH (08:23)
[2017-06-11] MEDS: SERTRALINE HCL 100 MG TAB PO SCH (08:24)
[2017-06-11] MEDS: HYDROCHLOROTHIAZIDE 12.5 MG CAP PO SCH (08:24)
--- NOTE | 2017-06-11 10:57 | HHI.PR ---
Subjective Remarks Follow-up visit HTN. Patient seen and examined today. Reports he is doing well but still continues to have some insomnia. States that his medication is being adjusted. States that he have headache this morning but it went away. Denies pain and discomfort. Denies SOB/ dyspnea. Denies chest pain, palpitations, dizziness. Denies fevers, chills, n/v/d. Denies hematuria, dysuria. Objective Vitals Vital Signs Date Time Temp Pulse Resp B/P (MAP) Pulse Ox O2 Delivery O2 Flow Rate FiO2 06/11/17 05:33 97.8 82 16 129/72 (91) 98 06/10/17 16:53 98.3 85 18 164/95 (118) 100 06/10/17 16:33 80 164/94 (117) Objective Remarks GENERAL: This is a well-nourished, well-developed patient, in no apparent distress. SKIN: Warm and dry. HEENT: Normocephalic. Pupils equal round and reactive. Nose without bleeding. Airway patent. NECK: Trachea midline. No JVD. Supple. CARDIOVASCULAR: Regular rate and rhythm without murmurs, gallops, or rubs. RESPIRATORY: Clear to auscultation. Breath sounds equal bilaterally. No wheezes , rales, or rhonchi. GASTROINTESTINAL: Abdomen soft, non-tender, nondistended. Bowel Sounds normoactive x4. MUSCULOSKELETAL: Extremities without clubbing, cyanosis, or edema. NEUROLOGICAL: Awake and alert. Oriented to time, place, person. No focal neuro deficit. Moves all extremities. Normal speech. A/P Problem List: (1) Chronic post-traumatic stress disorder (PTSD) ICD Code: F43.12 - Post-traumatic stress disorder, chronic (2) Bipolar disorder, current episode depressed, severe, without psychotic features ICD Code: F31.4 - Bipolar disorder, current episode depressed, severe, without psychotic features (3) HTN (hypertension) ICD Code: I10 - Essential (primary) hypertension Status: Acute Assessment and Plan 47-year-old male with a history of bipolar disorder and hypertension admitted to inpatient psychiatric unit for suicidal thoughts. Hospitalist services consulted for medical management of hypertension. Bipolar disorder Depression Suicidal ideation - Management per psychiatric team - EEG normal awake and drowsy Hypertension, uncontrolled - Hydrochlorothiazide 12.5 mg daily, Norvasc 10 mg daily - Monitor BP - Improved Abnormal TSH - TSH value low on 06/05, within normal limits on 06/06. Free T4 0.72. Suspect sick euthyroid. - Recommend patient follow-up with PCP and have TSH rechecked in 6-8 weeks. DVT prophylaxis - Patient is ambulatory Discussed with patient and Dr. Monroe If BP continues to be within normal tomorrow we will sign off. Jose Shah Jun 11, 2017 10:57
--- NOTE | 2017-06-11 17:09 | HHI.PYPN ---
Subjective Remarks Patient seen for follow, chart reviewed. Patient found in day room watching television was, cooperative interview. Patient states that he continues to have difficulty with sleeping, reports that when he wakes up ease taken about "why am I here" states feeling irritable during these times and frustrated and why he is feeling this way. Patient reports going to groups. Patient reports feeling a little sad in the morning which goes away then comes back during the day. Patient states that these episodes of sadness are less in duration, has fleeting suicidal ideation still but less intense and frequent. Patient denies any perceptual disturbances at this time. Chief Complaint: depression Review of Systems Except as stated in HPI: all other systems reviewed are Neg Mental Status Examination Appearance: Appropriate, Well dressed/well groomed Consciousness: Alert Orientation: x4 Motor Activity: Normal gait Speech: Unremarkable Language: Adequate Fund of Knowledge: Adequate Attention and Concentration: Adequate Memory: Unremarkable Mood: Sad, Other ("up and down") Affect: Other (restricted) Thought Process & Associations: Logical, Linear Thought Content: Appropriate Hallucination Type: None Delusion Type: None Suicidal Ideation: Yes (fleeting) Suicidal Plan: No Suicidal Intention: No Homicidal Ideation: No Homicidal Plan: No Homicidal Intention: No Insight: Adequate Judgment: Adequate Results Vitals/IOs Vital Signs Date Time Temp Pulse Resp B/P (MAP) Pulse Ox O2 Delivery O2 Flow Rate FiO2 06/11/17 05:33 97.8 82 16 129/72 (91) 98 Assessment & Plan Problem List: (1) Bipolar disorder, current episode depressed, severe, without psychotic features ICD Codes: F31.4 - Bipolar disorder, current episode depressed, severe, without psychotic features (2) Chronic post-traumatic stress disorder (PTSD) ICD Codes: F43.12 - Post-traumatic stress disorder, chronic Assessment & Plan Patient continues to be noted to be depressed at times but less intense with less frequent episodes in duration, continues of fleeting suicidal ideations. A less frequent. Patient continues to endorse some irritability but is able to manage it well. We'll increase sertraline to 150 mg by mouth daily for depression, continue quetiapine at 100 mg a.m. and 500 mg at bedtime. We'll increase zolpidem to 10 mg at bedtime for sleep disturbance. Discharge planning in progress Justification for Cont. Inpt. At risk for further decompensation if at lower level of care. Discharge Planning Patient may return back to his residence was psychiatrically stable Request HC Surrog/Guard Advoc?: No Peewee Ahuja MD Jun 11, 2017 17:09
[2017-06-11 17:35] VITALS: BP 151/98; PULSE 80; RESP 18; TEMP 98.2; O2SAT 99
[2017-06-11] MEDS: hydrOXYzine HCL 50 MG TAB PO PRN (20:25)
[2017-06-11] MEDS: QUEtiapine FUMARATE 100 MG TAB PO SCH (20:25)
[2017-06-11] MEDS: cloNIDine HCL 0.1 MG TAB PO PRN (20:25)
[2017-06-11] MEDS: ZOLPIDEM TARTRATE 5 MG TAB PO SCH (20:26)
[2017-06-11 21:40] VITALS: BP 156/102
[2017-06-11 22:15] VITALS: BP 154/86
[2017-06-12] MEDS: QUEtiapine FUMARATE 25 MG TAB PO SCH ×2 (05:36→15:45)
[2017-06-12 06:01] VITALS: BP 112/59; PULSE 86; RESP 16; TEMP 98.4; O2SAT 98
[2017-06-12] MEDS: HYDROCHLOROTHIAZIDE 12.5 MG CAP PO SCH (08:57)
[2017-06-12] MEDS: amLODIPine BESYLATE 5 MG TAB PO SCH (08:57)
[2017-06-12] MEDS: SERTRALINE HCL 100 MG TAB PO SCH (08:59)
--- NOTE | 2017-06-12 13:40 | HHI.PR ---
Subjective Remarks Follow-up visit HTN, insomnia. Patient seen and examined today at the day room. Reports he is doing well. He was able to sleep at night as his sleep medication has been increased. Discussed patient that he continues to have BP trend of 150s. Denies pain and discomfort. Denies SOB/ dyspnea. Denies chest pain, palpitations, headaches, dizziness. Denies fevers, chills, n/v/d. Objective Vitals Vital Signs Date Time Temp Pulse Resp B/P (MAP) Pulse Ox O2 Delivery O2 Flow Rate FiO2 06/12/17 06:01 98.4 86 16 112/59 (76) 98 06/11/17 22:15 154/86 (108) 06/11/17 21:40 156/102 (120) 06/11/17 17:35 98.2 80 18 151/98 (115) 99 Objective Remarks GENERAL: This is a well-nourished, well-developed patient, in no apparent distress. SKIN: Warm and dry. HEENT: Normocephalic. Pupils equal round and reactive. Nose without bleeding. Airway patent. NECK: Trachea midline. No JVD. Supple. CARDIOVASCULAR: Regular rate and rhythm without murmurs, gallops, or rubs. RESPIRATORY: Clear to auscultation. Breath sounds equal bilaterally. No wheezes , rales, or rhonchi. GASTROINTESTINAL: Abdomen soft, non-tender, nondistended. Bowel Sounds normoactive x4. MUSCULOSKELETAL: Extremities without clubbing, cyanosis, or edema. NEUROLOGICAL: Awake and alert. Oriented to time, place, person. No focal neuro deficit. Moves all extremities. Normal speech. A/P Problem List: (1) Chronic post-traumatic stress disorder (PTSD) ICD Code: F43.12 - Post-traumatic stress disorder, chronic (2) Bipolar disorder, current episode depressed, severe, without psychotic features ICD Code: F31.4 - Bipolar disorder, current episode depressed, severe, without psychotic features (3) HTN (hypertension) ICD Code: I10 - Essential (primary) hypertension Status: Acute Assessment and Plan 47-year-old male with a history of bipolar disorder and hypertension admitted to inpatient psychiatric unit for suicidal thoughts. Hospitalist services consulted for medical management of hypertension. Bipolar disorder Depression Suicidal ideation - Management per psychiatric team - EEG normal awake and drowsy Hypertension, uncontrolled - Norvasc 10 mg daily - Monitor BP trend - Increase hydrochlorothiazide 25 mg daily Abnormal TSH - TSH value low on 06/05, within normal limits on 06/06. Free T4 0.72. Suspect sick euthyroid. - Recommend patient follow-up with PCP and have TSH rechecked in 6-8 weeks. DVT prophylaxis - Patient is ambulatory Discussed with patient and Dr. Monroe If BP continues to be within normal tomorrow we will sign off. Jose Shah Jun 12, 2017 13:40
--- NOTE | 2017-06-12 15:33 | HHI.PYPN ---
Subjective Remarks Patient seen for follow-up, chart review. Patient found dissipating and bingo with groups activities. Patient states that he has slept better due to the increase of zolpidem last evening. Patient states that he woke up only one time but feels rested today. Patient states that his mood is "okay" but continues to have periods of feeling depressed that goes "up and down". Patient reports that he has less of feelings of wanting to hurt himself or others but is able to manage them at this time better. Chief Complaint: depression Review of Systems Except as stated in HPI: all other systems reviewed are Neg Mental Status Examination Appearance: Appropriate, Well dressed/well groomed Consciousness: Alert Orientation: x4 Motor Activity: Normal gait Speech: Unremarkable Language: Adequate Fund of Knowledge: Adequate Attention and Concentration: Adequate Memory: Unremarkable Mood: Sad, Other ("up and down") Affect: Other (restricted) Thought Process & Associations: Logical, Linear Thought Content: Appropriate Hallucination Type: None Delusion Type: None Suicidal Ideation: Yes (less so today) Suicidal Plan: No Suicidal Intention: No Homicidal Ideation: No Homicidal Plan: No Homicidal Intention: No Insight: Adequate Judgment: Adequate Results Vitals/IOs Vital Signs Date Time Temp Pulse Resp B/P (MAP) Pulse Ox O2 Delivery O2 Flow Rate FiO2 06/12/17 06:01 98.4 86 16 112/59 (76) 98 Assessment & Plan Problem List: (1) Bipolar disorder, current episode depressed, severe, without psychotic features ICD Codes: F31.4 - Bipolar disorder, current episode depressed, severe, without psychotic features (2) Chronic post-traumatic stress disorder (PTSD) ICD Codes: F43.12 - Post-traumatic stress disorder, chronic Assessment & Plan Patient at this time continues to have periods of depressed mood throughout the day but feels that it is improving, he is also reporting continued thoughts of hurting himself or others when irritable but states that he is better able to control those thoughts at this time. We'll continue current treatment for now as patient noted to have some improvement on current regimen. Discharge planning in progress Justification for Cont. Inpt. At risk for further decompensation if at lower level of care Discharge Planning Patient reports wanting to return back to the hotel until he is able to find more stable place to live. Request HC Surrog/Guard Advoc?: No Peewee Ahuja MD Jun 12, 2017 15:33
[2017-06-12 18:15] VITALS: BP 153/99; PULSE 86; RESP 17; TEMP 98.4; O2SAT 100
[2017-06-12] MEDS: QUEtiapine FUMARATE 100 MG TAB PO SCH (21:52)
[2017-06-12] MEDS: ZOLPIDEM TARTRATE 5 MG TAB PO SCH (21:53)
[2017-06-13] MEDS: QUEtiapine FUMARATE 25 MG TAB PO SCH ×2 (05:52→15:32)
[2017-06-13 06:16] VITALS: BP 119/68; PULSE 82; RESP 18; TEMP 97.6; O2SAT 97
[2017-06-13] MEDS: amLODIPine BESYLATE 5 MG TAB PO SCH (08:17)
[2017-06-13] MEDS: SERTRALINE HCL 100 MG TAB PO SCH (08:17)
[2017-06-13] MEDS: HYDROCHLOROTHIAZIDE 12.5 MG CAP PO SCH (08:17)
--- NOTE | 2017-06-13 10:09 | HHI.PR ---
Addendum to Inpatient Note Addendum Reason: Additional Documentation Additional Information Patient BP wnl this am. Continue with current BP regimen. Stable from Hospitalist standpoint. We will sign off. Reconsult as needed. Jose Shah Jun 13, 2017 10:09
--- NOTE | 2017-06-13 16:37 | PD.TTN ---
Patient Problems 1. Discharge planning 2. Medication compliance 3. Knowledge deficit 4. Lack of coping skills Progress Toward Goals Provider Present: Dr. Tamie Ahuja Provider Input: Patient has been compliant with medications and is tolerating them well. Patient has no medication adjustment and will be discharge tomorrow. Nurse(s) Input: Patient has been more active on unit and participating in group. Patient is compliant with medication. Psychiatric Counselors Present: ASHLEY Weber Psych Therapist Input: Patient notes that he is doing much better and that he is wanting to make sure he tolerates medication before discharge. Group Spec/RT/OT/HU Present: Jose Galdamez OT Group Spec/RT/OT/HU Input: Patient has been more active and participating in group. Jessica Castillo [facility] CENTERInderjit Jun 13, 2017 16:37
--- NOTE | 2017-06-13 16:38 | HHI.PYPN ---
Subjective Chief Complaint: depression Remarks Patient seen for follow-up, chart review. Patient found in the day room watching television, calm and cooperative interview today. Patient states he been feeling "good", reports having improved sleep tonight, reports that he has been having improvement of mood although continues to have some irritability but less so and states that it is more manageable now. Patient states that he has not had any thoughts suicidal homicidal ideations and states that they have decreased significantly. Review of Systems Except as stated in HPI: all other systems reviewed are Neg Mental Status Examination Appearance: Appropriate, Well dressed/well groomed Consciousness: Alert Orientation: x4 Motor Activity: Normal gait Speech: Unremarkable Language: Adequate Fund of Knowledge: Adequate Attention and Concentration: Adequate Memory: Unremarkable Mood: Appropriate Affect: Other (restricted but more affect today) Thought Process & Associations: Logical, Linear Thought Content: Appropriate Hallucination Type: None Delusion Type: None Suicidal Ideation: Yes (denied today) Suicidal Plan: No Suicidal Intention: No Homicidal Ideation: No Homicidal Plan: No Homicidal Intention: No Insight: Adequate Judgment: Adequate Results Vitals/IOs Vital Signs Date Time Temp Pulse Resp B/P (MAP) Pulse Ox O2 Delivery O2 Flow Rate FiO2 06/13/17 06:16 97.6 82 18 119/68 (85) 97 Assessment & Plan Problem List: (1) Bipolar disorder, current episode depressed, severe, without psychotic features ICD Codes: F31.4 - Bipolar disorder, current episode depressed, severe, without psychotic features (2) Chronic post-traumatic stress disorder (PTSD) ICD Codes: F43.12 - Post-traumatic stress disorder, chronic Assessment & Plan Patient has improvement of mood with lessening of SI or HI. We'll continue current treatment. Patient will be discharged tomorrow with outpatient follow- up. Justification for Cont. Inpt. At risk for further decompensation if at lower level of care Discharge Planning Patient to be discharged back to his hotel [facility] psychiatric stable. Request HC Surrog/Guard Advoc?: Peewee Hussein MD Jun 13, 2017 16:38
[2017-06-13 17:44] VITALS: BP 159/97; PULSE 90; RESP 18; TEMP 98.9; O2SAT 100
[2017-06-13] MEDS: QUEtiapine FUMARATE 100 MG TAB PO SCH (21:12)
[2017-06-13] MEDS: ZOLPIDEM TARTRATE 5 MG TAB PO SCH (21:12)
[2017-06-14] MEDS: QUEtiapine FUMARATE 25 MG TAB PO SCH (05:18)
[2017-06-14 06:21] VITALS: BP 121/69; PULSE 86; RESP 16; TEMP 97.2; O2SAT 98
[2017-06-14] MEDS: amLODIPine BESYLATE 5 MG TAB PO SCH (08:26)
[2017-06-14] MEDS: HYDROCHLOROTHIAZIDE 12.5 MG CAP PO SCH (08:26)
[2017-06-14] MEDS: SERTRALINE HCL 100 MG TAB PO SCH (08:26)
[2017-06-14] MEDS ORDERED: HYDR25TA5 PO (10:54)
[2017-06-14] MEDS ORDERED: QUET1TAB8 PO (10:54)
[2017-06-14] MEDS ORDERED: ZOLP10TA3 PO (10:54)
[2017-06-14] MEDS ORDERED: QUET5TAB PO (10:54)
[2017-06-14] MEDS ORDERED: ZOLO100T PO (10:54)
[2017-06-14] MEDS ORDERED: AMLO10TA2 PO (10:54)
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
== END 2017-06-14 12:58 | disposition home or self-care (01) | DRG 885 ==
LOC: NEPD 08:51 → NEDA 16:24 → H260 16:58
PROVIDERS: ADMIT Student in an Organized Health Care Education/Training Program; ATTEND Student in an Organized Health Care Education/Training Program
DX: F31.4 Bipolar disorder, current episode depressed, severe, without psychotic features (principal); R45.851 Suicidal ideations; I10 Essential (primary) hypertension; F43.12 Post-traumatic stress disorder, chronic; Z91.5 Personal history of self-harm; Z62.810 Personal history of physical and sexual abuse in childhood; G47.00 Insomnia, unspecified; E07.81 Sick-euthyroid syndrome
CPT/HCPCS: 80048; 80053; 80061; 80307; 82728; 83036; 83540; 83550; 84439; 84443; 85025; 93005; 95819

== ENCOUNTER 2017-12-02 11:24 | Inpatient (IN) | payer OTHER ==
[2017-12-02] VITALS (24 sets, daily range): BP systolic 106–198; BP diastolic 56–125; PULSE 76–148; RESP 14–26; TEMP 97–97.4; O2SAT 95–100
[~2017-12-02] VITALS: Ht 177.8 cm; Wt 102.3 kg
[~2017-12-02 11:24] MED LIST changes: +AMLO10TA2 PO; -AMLO5 PO; -ESCI10TA PO; -FLUO-1 PO; +HYDR12.56 PO; +HYDR25TA5 PO; -LURA40 PO; -PANT40TA3 PO; -QUET1TAB7 PO; +QUET1TAB8 PO; +QUET400T PO; +QUET5TAB PO; -SERO100T PO; -TRAZ50TA12 PO; +ZOLO100T PO; +ZOLP10TA3 PO
[2017-12-02] MEDS ORDERED: ETOMIDATE 40 MG/20 ML VIAL ONE (11:27)
[2017-12-02] MEDS ORDERED: SUCCINYLCHOLINE CHLORIDE 200 MG/10 ML VIAL ONE (11:28)
[2017-12-02] MEDS ORDERED: PROPOFOL 500 MG/50 ML INJ 50 ML ONE (11:35)
[2017-12-02] MEDS ORDERED: SODIUM CHLOR 0.9% 1000 ML INJ 1,000 ML IV SCH (11:36)
[2017-12-02] MEDS ORDERED: SUCCINYLCHOLINE CHLORIDE 100 MG/5 ML SYRINGE IV PUSH ONE (11:45)
[2017-12-02] MEDS ORDERED: SODIUM CHLORIDE 0.9% FLUSH 10 ML FLUSH IV FLUSH PRN (11:45)
[2017-12-02] MEDS ORDERED: ACTIVATED CHARCOAL LIQUID 25 GM/120 ML BTL NG ONE (11:45)
[2017-12-02] MEDS ORDERED: ETOMIDATE 20 MG/10 ML VIAL IV PUSH ONE (11:45)
--- NOTE | 2017-12-02 12:04 | PD ---
HPI Chief Complaint: OD/ Ingestion Time Seen by Provider: 11:35 Travel History International Travel<30 days: No Contact w/Intl Traveler<30days: No Traveled to known affect area: No History of Present Illness HPI 47-year-old male came to the emergency room brought by EMS emergently after he was found unresponsive in a motel room. Patient was unable to give any meaningful history given his mental status. As per EMS GCS was 3 upon their arrival. Patient GCS remained 3 on route. There were some empty pill bottles of Ambien and Seroquel found around him. Patient was tachycardic upon arrival and sonorous respirations. There is no family members around him to give any history. The pill bottles are from [place]. Blood pressure was otherwise stable. As per EMS his oxygen saturation was in the 80s before they put nasal cannula on. On 2 L of nasal cannula on the patient was saturating 95%. PFSH Past Medical History Narrative Medical List of his past medical, surgical, social and family history reviewed from the nursing note. Medical History: Unable to Obtain Depression: Yes Cancer: No Cardiovascular Problems: Yes (HTN) Diminished Hearing: No Endocrine: No Genitourinary: No Hypertension: Yes Immune Disorder: No Musculoskeletal: No Neurologic: No Psychiatric: Yes Reproductive: No Respiratory: No Tetanus Vaccination: Unknown Influenza Vaccination: Yes Past Surgical History Cholecystectomy: Yes (2007) Other Surgery: Yes Social History Alcohol Use: Yes (occasional) Tobacco Use: No Substance Use: No Allergies-Medications (Allergen,Severity, Reaction): Coded Allergies: No Known Allergies (Unverified , 09/03/12) Comments No known drug allergies. Reported Meds & Prescriptions Reported Meds & Active Scripts Active Hydrochlorothiazide 25 Mg Tab 25 Mg PO DAILY Zolpidem (Zolpidem Tartrate) 10 Mg Tab 10 Mg PO HS PRN 30 Days Quetiapine (Quetiapine Fumarate) 50 Mg Tab 50 Mg PO DAILY@0600, 1600 Quetiapine (Quetiapine Fumarate) 100 Mg Tab 500 Mg PO HS 30 Days Zoloft (Sertraline HCl) 100 Mg Tab 150 Mg PO DAILY 30 Days Amlodipine (Amlodipine Besylate) 10 Mg Tab 10 Mg PO DAILY Reported Hydrochlorothiazide 12.5 Mg Tab 12.5 Mg PO DAILY Quetiapine (Quetiapine Fumarate) 50 Mg Tab 50 Mg PO DAILY Quetiapine (Quetiapine Fumarate) 400 Mg Tab 450 Mg PO HS Narrative Medication List of his home medications reviewed from the nursing note. Review of Systems ROS Limitations: Unresponsive Except as stated in HPI: all other systems reviewed are Neg Physical Exam Narrative GENERAL: Unresponsive, maintaining airway by sonorous respiration SKIN: Focused skin assessment warm/dry. HEAD: Atraumatic. Normocephalic. EYES: Pupils equal and round. No scleral icterus. No injection or drainage. ENT: No nasal bleeding or discharge. Mucous membranes pink and moist. NECK: Trachea midline. No JVD. CARDIOVASCULAR: Regular rate and rhythm. No murmur appreciated. RESPIRATORY: No accessory muscle use. Snoring. Clear to auscultation. Breath sounds equal bilaterally. GASTROINTESTINAL: Abdomen soft, non-tender, nondistended. Hepatic and splenic margins not palpable. MUSCULOSKELETAL: No obvious deformities. No clubbing. No cyanosis. No edema. NEUROLOGICAL: GCS of 3 PSYCHIATRIC: Unable to assess Data Data Last Documented VS Vital Signs Date Time Temp Pulse Resp B/P (MAP) Pulse Ox O2 Delivery O2 Flow Rate FiO2 12/02/17 11:53 142 16 141/64 (89) 100 Auto-Vent 12/02/17 11:40 100 12/02/17 11:36 4.00 12/02/17 11:26 97.3 Orders Orders Etomidate Inj (Amidate Inj) (12/02/17 11:27) Succinylcholine Inj (Quelicin Inj) (12/02/17 11:28) Propofol 500 Mg/50 Ml Inj (Diprivan 500 (12/02/17 11:35) Electrocardiogram (12/02/17 11:36) Ammonia (12/02/17 11:36) Complete Blood Count With Diff (12/02/17 11:36) Comprehensive Metabolic Panel (12/02/17 11:36) Creatine Kinase (Cpk) (12/02/17 11:36) Prothrombin Time / Inr (Pt) (12/02/17 11:36) Troponin I (12/02/17 11:36) Thyroid Stimulating Hormone (12/02/17 11:36) Urinalysis - C+S If Indicated (12/02/17 11:36) Lactic Acid Sepsis Protocol (12/02/17 11:36) Arterial Blood Gas (Abg) (12/02/17 11:36) Blood Culture (12/02/17 11:36) Chest, Single Ap (12/02/17 11:36) Ct Brain W/O Iv Contrast(Rout) (12/02/17 11:36) Blood Glucose (12/02/17 11:36) Ecg Monitoring (12/02/17 11:36) Iv Access Insert/Monitor (12/02/17 11:36) Oximetry (12/02/17 11:36) Sodium Chloride 0.9% Flush (Ns Flush) (12/02/17 11:45) Sodium Chlor 0.9% 1000 Ml Inj (Ns 1000 M (12/02/17 11:36) Drug Screen, Random Urine (12/02/17 11:36) Alcohol (Ethanol) (12/02/17 11:36) Tylenol (Acetaminophen) (12/02/17 11:36) Salicylates (Aspirin) (12/02/17 11:36) Urinary Catheter Insert/Apply (12/02/17 11:39) Anthony-Gastric Tube Insert/Mon (12/02/17 11:39) Succinylcholine Inj (Quelicin Inj) (12/02/17 11:45) Etomidate Inj (Amidate Inj) (12/02/17 11:45) Charcoal Activated Liq (Actidose-Aqua Li (12/02/17 11:45) Call Poison Control (12/02/17 11:39) Admit Order (Ed Use Only) (12/02/17 12:00) CKMB (12/02/17 11:40) CKMB% (12/02/17 11:40) Labs Laboratory Tests Test 12/02/17 11:40 12/02/17 11:45 12/02/17 11:55 White Blood Count 4.0 TH/MM3 Red Blood Count 4.51 MIL/MM3 Hemoglobin 13.0 GM/DL Hematocrit 39.0 % Mean Corpuscular Volume 86.5 FL Mean Corpuscular Hemoglobin 28.9 PG Mean Corpuscular Hemoglobin Concent 33.4 % Red Cell Distribution Width 14.0 % Platelet Count 216 TH/MM3 Mean Platelet Volume 8.1 FL Neutrophils (%) (Auto) 51.2 % Lymphocytes (%) (Auto) 37.8 % Monocytes (%) (Auto) 6.7 % Eosinophils (%) (Auto) 3.1 % Basophils (%) (Auto) 1.2 % Neutrophils # (Auto) 2.0 TH/MM3 Lymphocytes # (Auto) 1.5 TH/MM3 Monocytes # (Auto) 0.3 TH/MM3 Eosinophils # (Auto) 0.1 TH/MM3 Basophils # (Auto) 0.0 TH/MM3 CBC Comment DIFF FINAL Differential Comment Prothrombin Time 11.6 SEC Prothromb Time International Ratio 1.1 RATIO Blood Urea Nitrogen 7 MG/DL Creatinine 1.04 MG/DL Random Glucose 152 MG/DL Total Protein 6.9 GM/DL Albumin 3.3 GM/DL Calcium Level 7.8 MG/DL Alkaline Phosphatase 54 U/L Aspartate Amino Transf (AST/SGOT) 19 U/L Alanine Aminotransferase (ALT/SGPT) 21 U/L Total Bilirubin 0.3 MG/DL Sodium Level 145 MEQ/L Potassium Level 3.4 MEQ/L Chloride Level 109 MEQ/L Carbon Dioxide Level 28.0 MEQ/L Anion Gap 8 MEQ/L Estimat Glomerular Filtration Rate 93 ML/MIN Total Creatine Kinase 402 U/L Creatine Kinase MB 2.3 NG/ML Creatine Kinase MB % 0.6 % Troponin I LESS THAN 0.02 NG/ML Thyroid Stimulating Hormone 3rd Gen 1.020 uIU/ML Salicylates Level LESS THAN 1.7 MG/DL Acetaminophen Level LESS THAN 2.0 MCG/ML Ethyl Alcohol Level LESS THAN 3 MG/DL Lactic Acid Level 2.1 mmol/L Ammonia 37 MCMOL/L Urine Color LIGHT-YELLOW Urine Turbidity CLEAR Urine pH 7.0 Urine Specific [place] 1.008 Urine Protein NEG mg/dL Urine Glucose (UA) NEG mg/dL Urine Ketones NEG mg/dL Urine Occult Blood NEG Urine Nitrite NEG Urine Bilirubin NEG Urine Urobilinogen LESS THAN 2.0 MG/DL Urine Leukocyte Esterase NEG Urine RBC LESS THAN 1 /hpf Urine WBC 1 /hpf Urine Mucus FEW /lpf Microscopic Urinalysis Comment CATH-CULT NOT IND MDM Medical Decision Making Medical Screen Exam Complete: Yes Emergency Medical Condition: Yes Medical Record Reviewed: Yes Interpretation(s) Twelve-lead EKG was reviewed by me. Normal sinus rhythm, normal axis, tachycardia, nonspecific ST-T wave changes. Heart rate of 143 bpm. Differential Diagnosis Ambien overdose, Seroquel overdose, intracranial bleed, metabolic encephalopathy Narrative Course 12:06 PM patient was given 1.2 mg of Narcan with no change. I decided to intubate him. In my opinion the Ambien could be the reason of his profoundly depressed mental status. I am concerned about the possibility of cervical overdose as well which could explain the tachycardia. Patient was intubated by me. Please refer to the procedure note. He tolerated the procedure well. I have ordered for charcoal through the OG tube. Awaiting for the blood test results and a chest x-ray to confirm the tube. I have ordered a head CT which is pending as well. I discussed the case with Dr. Donald from ICU who has accepted the patient. His heart rate is slowly coming down. Critical Care Narrative Aggregate critical care time was 60 minutes. Time to perform other separately billable procedures was not included in the critical care time. My time did not include minutes spent treating any other patients simultaneously or on activities that did not directly contribute to the patient's treatment. The services I provided to this patient were to treat and/or prevent clinically significant deterioration that could result in: Unresponsive, GCS of 3, intubation, vent management, drug overdose I provided critical care services requiring my management, as noted below: Chart data review, documentation time, medication orders and management, vital sign assessments/reviewing monitor data, ordering and reviewing lab tests, ordering and interpreting/reviewing x-rays and diagnostic studies, care of the patient and discussion of the patient with the admitting physicians. Procedures Procedure Narrative After the risks and benefits were discussed the following procedure was performed: INTUBATION: The patient was put in optimal position for the procedure. Rapid sequence intubation was initiated by me using 20 milligrams of etomidate IV and 100 milligrams of succinylcholine call IV. The patient was intubated with a 7.5 cuffed endotracheal tube. Tube placement was confirmed by visualization of the tube and balloon passing through the cords, capnometry and subsequent chest x-ray. Breath sounds were equal and well aerated bilaterally postintubation. No breath sounds over stomach. Patient tolerated procedure well. EKG Prior to Arrival: No Physician Communication Physician Communication Dr. Donald Diagnosis Primary Impression: Unresponsive Additional Impressions: Intentional overdose Respiratory failure Qualified Codes: J96.00 - Acute respiratory failure, unspecified whether with hypoxia or hypercapnia Admitting Information Admitting Physician Requests: Jonah Penaloza MD Dec 02, 2017 12:03
[2017-12-02 12:22] LABS: BASOPHIL % 1.2 % (0.0-2.0); EOSINOPHIL # 0.1 TH/MM3 (0-0.4); EOSINOPHIL % 3.1 % (0.0-4.0); LYMPH % 37.8 % (9.0-44.0); LYMPHOCYTE # 1.5 TH/MM3 (1.0-4.8); MEAN CELL VOLUME 86.5 FL (80.0-100.0); MEAN CORPUSCULAR HEMOGLOBIN 28.9 PG (27.0-34.0); MEAN CORPUSCULAR HGB CONC 33.4 % (32.0-36.0); MEAN PLATELET VOLUME 8.1 FL (7.0-11.0); MONO % 6.7 % (0.0-8.0); MONOCYTE # 0.3 TH/MM3 (0-0.9); NEUT % 51.2 % (16.0-70.0); PLATELET COUNT 216 TH/MM3 (150-450); RED BLOOD COUNT 4.51 MIL/MM3 (4.50-5.90)
[2017-12-02 12:32] LABS: INTERNATIONAL NORMALIZED RATIO 1.1 RATIO; PROTHROMBIN TIME - PATIENT 11.6 SEC (9.8-11.6)
[2017-12-02 12:40] LABS: LACTIC ACID SEPSIS PROTOCOL 2.1 mmol/L (0.4-2.0)
--- NOTE | 2017-12-02 12:46 | RADRPT ---
EXAM DATE/TIME: 12/02/2017 12:26 [facility] COMPARISON: No previous studies available for comparison. INDICATIONS : Post intubation MEDICAL HISTORY : None. SURGICAL HISTORY : None. ENCOUNTER: Initial ACUITY: 1 day PAIN SCORE: Non-responsive. LOCATION: chest FINDINGS: There is an endotracheal tube present with the tip just above the level of the clavicles. Recommend a dvancement by 2 cm. There is a nasogastric tube with the proximal port below level of the diaphragm. The lungs are mildly hypoinflated but clear. Heart size is normal. CONCLUSION: Endotracheal tube with the tip just above the level of the clavicles. Recommend advancement 2 cm.. Linda Melchor MD on December 02, 2017 at 12:43 Board Certified Radiologist. This report was verified electronically.
[2017-12-02 12:56] LABS: ALBUMIN 3.3 GM/DL (3.4-5.0); ALT (GPT) 21 U/L (12-78); AST (GOT) 19 U/L (15-37); BLOOD UREA NITROGEN 7 MG/DL (7-18); CALCIUM 7.8 MG/DL (8.5-10.1); CREATININE 1.04 MG/DL (0.60-1.30); GLOMERULAR FILTRATION RATE 93 ML/MIN (>89); GLUCOSE,RANDOM 152 MG/DL (74-106)
[2017-12-02 12:57] LABS: BILIRUBIN, URINE NEG (NEG); BLOOD, URINE NEG (NEG); GLUCOSE,URINE NEG (NEG); KETONE, URINE NEG (NEG); MUCUS URINE FEW /lpf (OCC); NITRITE,URINE NEG (NEG); URINE COLOR LIGHT-YELLOW (YELLW/STRAW); URINE LEUKOCYTE ESTERASE NEG (NEG)
[2017-12-02] MEDS ORDERED: MIDAZOLAM HCL 5 MG/ML VIAL (1 ML) ONE (13:28)
--- NOTE | 2017-12-02 13:28 | HHI.HP ---
[facility] Service Critical Care Medicine Primary Care Physician Unknown Admission Diagnosis Unresponsive, possible overdose Diagnosis: (1) Altered mental status Diagnosis: Principal (2) Acute encephalopathy Diagnosis: Principal (3) Acute respiratory failure Diagnosis: Principal (4) Drug overdose, intentional Diagnosis: Principal (5) Lactic acidosis Diagnosis: Principal (6) HTN (hypertension) Diagnosis: Secondary (7) Chronic post-traumatic stress disorder (PTSD) Diagnosis: Secondary (8) Bipolar 1 disorder, depressed, moderate Diagnosis: Secondary Chief Complaint: Intentional overdose with Seroquel and Ambien Travel History International Travel<30 Days: No Contact w/Intl Traveler <30 Da: No Traveled to Known Affected Are: No History of Present Illness Mr. Sharma is a 47-year-old -Swedish male who was brought to the [place] ED by EMS after being found unresponsive in a motel. EMS reported GCS was 3 upon their arrival. They found empty pill bottles of Ambien and Seroquel. Patient was tachycardic upon arrival to ED with sonorous respirations. As per EMS his oxygen saturation was in the 80s, put nasal cannula with improvement in Sats. Patient was not protecting his airway and was intubated by Dr. Rincon. Toxicology screen was essentially negative. Poison control was contacted and Dr. Rincon has ordered activated charcoal I evaluated the patient in the ED. he remains intubated, low-dose propofol started as the patient was starting to move spontaneously. On my exam, patient localizes with upper extremities withdraws lower extremities. Pupils remain pinpoint. CT of the head is pending at this time. Remains tachycardic, lactate is slightly elevated I will give additional 2 L normal saline bolus and maintenance fluid at 84 mL/h Review of Systems ROS Limitations: Intubated, Altered Mental Status Past Family Social History Allergies: Coded Allergies: No Known Allergies (Unverified , 09/03/12) Past Medical History Hypertension PTSD Bipolar disorder Past Surgical History Cholecystectomy Reported Medications Hydrochlorothiazide 25 Mg Tab 25 Mg PO DAILY Zolpidem (Zolpidem Tartrate) 10 Mg Tab 10 Mg PO HS PRN 30 Days Quetiapine (Quetiapine Fumarate) 50 Mg Tab 50 Mg PO DAILY@0600, 1600 Quetiapine (Quetiapine Fumarate) 100 Mg Tab 500 Mg PO HS 30 Days Zoloft (Sertraline HCl) 100 Mg Tab 150 Mg PO DAILY 30 Days Amlodipine (Amlodipine Besylate) 10 Mg Tab 10 Mg PO DAILY Hydrochlorothiazide 12.5 Mg Tab 12.5 Mg PO DAILY Quetiapine (Quetiapine Fumarate) 50 Mg Tab 50 Mg PO DAILY Quetiapine (Quetiapine Fumarate) 400 Mg Tab 450 Mg PO HS Active Ordered Medications Reviewed Family History Unable to obtain family history Social History Unable to obtain personal history, review of records indicate no alcohol or IV drug use, history of binge drinking Physical Exam Vital Signs Vital Signs Date Time Temp Pulse Resp B/P (MAP) Pulse Ox O2 Delivery O2 Flow Rate FiO2 12/02/17 12:34 100 50 12/02/17 12:06 97.0 139 16 116/57 (76) 100 Auto-Vent 12/02/17 11:53 142 16 141/64 (89) 100 Auto-Vent 12/02/17 11:40 100 100 12/02/17 11:37 148 18 198/125 (149) 100 Auto-Vent 12/02/17 11:36 150 24 97 Nasal Cannula 4.00 12/02/17 11:34 100 12/02/17 11:26 97.3 144 26 141/69 (93) 98 Physical Exam GENERAL: Unresponsive, intubated, now on 10 mcg/kg/min of propofol SKIN: Focused skin assessment warm/dry. HEAD: Atraumatic. Normocephalic. EYES: Pupils equal and round, approximately 1mm sluggish. ENT: Oral mucosa is dry, orotracheally intubated NECK: Trachea midline. No JVD. CARDIOVASCULAR: Tachycardic rate and rhythm. No murmur appreciated. RESPIRATORY: PRVC/AC. Clear to auscultation. Breath sounds equal bilaterally. GASTROINTESTINAL: Abdomen soft, non-tender, nondistended. Hepatic and splenic margins not palpable. MUSCULOSKELETAL: No obvious deformities. No clubbing. No cyanosis. No edema. NEUROLOGICAL: Intubated unresponsive. To painful stimuli purposefully moves. Pupils 1 mm nonreactive PSYCHIATRIC: Unable to assess Laboratory Laboratory Tests Test 12/02/17 11:40 12/02/17 11:45 12/02/17 11:55 12/02/17 12:19 White Blood Count 4.0 Red Blood Count 4.51 Hemoglobin 13.0 Hematocrit 39.0 Mean Corpuscular Volume 86.5 Mean Corpuscular Hemoglobin 28.9 Mean Corpuscular Hemoglobin Concent 33.4 Red Cell Distribution Width 14.0 Platelet Count 216 Mean Platelet Volume 8.1 Neutrophils (%) (Auto) 51.2 Lymphocytes (%) (Auto) 37.8 Monocytes (%) (Auto) 6.7 Eosinophils (%) (Auto) 3.1 Basophils (%) (Auto) 1.2 Neutrophils # (Auto) 2.0 Lymphocytes # (Auto) 1.5 Monocytes # (Auto) 0.3 Eosinophils # (Auto) 0.1 Basophils # (Auto) 0.0 CBC Comment DIFF FINAL Differential Comment Prothrombin Time 11.6 Prothromb Time International Ratio 1.1 Blood Urea Nitrogen 7 Creatinine 1.04 Random Glucose 152 Albumin 3.3 Calcium Level 7.8 Aspartate Amino Transf (AST/SGOT) 19 Alanine Aminotransferase (ALT/SGPT) 21 Carbon Dioxide Level 28.0 Estimat Glomerular Filtration Rate 93 Salicylates Level LESS THAN 1.7 Ethyl Alcohol Level LESS THAN 3 Lactic Acid Level 2.1 Ammonia 37 Urine Color LIGHT-YELLOW Urine Turbidity CLEAR Urine pH 7.0 Urine Specific [place] 1.008 Urine Protein NEG Urine Glucose (UA) NEG Urine Ketones NEG Urine Occult Blood NEG Urine Nitrite NEG Urine Bilirubin NEG Urine Urobilinogen LESS THAN 2.0 Urine Leukocyte Esterase NEG Urine RBC LESS THAN 1 Urine WBC 1 Urine Mucus FEW Microscopic Urinalysis Comment CATH-CULT NOT IND Blood Gas Puncture Site RT RADIAL Blood Gas Patient Temperature 98.6 Blood Gas HCO3 25 Blood Gas Base Excess 0.2 Blood Gas Oxygen Saturation 99 Arterial Blood pH 7.37 Arterial Blood Partial Pressure CO2 44 Arterial Blood Partial Pressure O2 454 Arterial Blood Oxygen Content 18.4 Arterial Blood Carboxyhemoglobin 0.7 Arterial Blood Methemoglobin 0.6 Blood Gas Hemoglobin 12.4 Oxygen Delivery Device VENTILATOR Blood Gas Ventilator Setting A/C 14/600/PEEP5 Blood Gas Inspired Oxygen 100 Test 12/02/17 12:36 Urine Opiates Screen NEG Urine Barbiturates Screen NEG Urine Amphetamines Screen NEG Urine Benzodiazepines Screen NEG Urine Cocaine Screen NEG Urine Cannabinoids Screen NEG Date/Time Source Procedure Growth Status 12/02/17 11:45 Blood Peripheral Aerobic Blood Culture Pending Received 12/02/17 11:45 Blood Peripheral Anaerobic Blood Culture Pending Received Result Diagram: 12/02/17 1140 12/02/17 1140 Imaging Chest x-ray and CT of the head negative for acute findings Septic Shock Reassessment Septic shock perfusion: reassessment completed Caprini VTE Risk Assessment Caprini VTE Risk Assessment: Mod/High Risk (score >= 2) Caprini Risk Assessment Model Point Value = 1 Point Value = 2 Point Value = 3 Point Value = 5 Age 41-60 Minor surgery BMI > 25 kg/m2 Swollen legs Varicose veins or History of unexplained or recurrent spontaneous Oral contraceptives or hormone replacement Sepsis (< 1 month) Serious lung disease, including pneumonia (< 1 month) Abnormal pulmonary function Acute myocardial infarction Congestive heart failure (< 1 month) History of inflammatory bowel disease Medical patient at bed rest Age 61-74 Arthroscopic surgery Major open surgery (> 45 min) Laparoscopic surgery (> 45 min) Malignancy Confined to bed (> 72 hours) Immobilizing plaster cast Central venous access Age >= 75 History of VTE Family history of VTE Factor V Leiden Prothrombin 13621G Lupus anticoagulant Anticardiolipin antibodies Elevated serum homocysteine Heparin-induced thrombocytopenia Other congenital or acquired thrombophilia Stroke (< 1 month) Elective arthroplasty Hip, pelvis, or leg fracture Acute spinal cord injury (< 1 month) Prophylaxis Regimen Total Risk Factor Score Risk Level Prophylaxis Regimen 0-1 Low Early ambulation 2 Moderate Order ONE of the following: *Sequential Compression Device (SCD) *Heparin 5000 units SQ BID 3-4 Higher Order ONE of the following medications: *Heparin 5000 units SQ TID *Enoxaparin/Lovenox 40 mg SQ daily (WT < 150 kg, CrCl > 30 mL/min) *Enoxaparin/Lovenox 30 mg SQ daily (WT < 150 kg, CrCl > 10-29 mL/min) *Enoxaparin/Lovenox 30 mg SQ BID (WT < 150 kg, CrCl > 30 mL/min) AND/OR *Sequential Compression Device (SCD) 5 or more Highest Order ONE of the following medications: *Heparin 5000 units SQ TID (Preferred with Epidurals) *Enoxaparin/Lovenox 40 mg SQ daily (WT < 150 kg, CrCl > 30 mL/min) *Enoxaparin/Lovenox 30 mg SQ daily (WT < 150 kg, CrCl > 10-29 mL/min) *Enoxaparin/Lovenox 30 mg SQ BID (WT < 150 kg, CrCl > 30 mL/min) AND *Sequential Compression Device (SCD) Assessment and Plan Assessment and Plan NEURO: Intentional overdose with Seroquel and Ambien Acute encephalopathy -Poison control contacted by ED -Activated charcoal being given, supportive therapy, IV hydration -Watch closely for QT, QRS abnormalities on EKG -Propofol for sedation and vent synchrony -Daily sedation vacation starting 24 hours -CT head stat-negative for acute findings -Psychiatric consult once extubated RESP: Acute respiratory failure -Intubated for airway protection -ACV, ventilator bundle, head of the bed elevation 30 -DuoNeb every 6 hours as needed -Start vent weaning once encephalopathy, altered mentation improves CV: Sinus tachycardia Mild lactic acidosis -Normal saline IV fluids additional 2 L bolus and 84 mL/h -If persistent tachycardia use as needed metoprolol GI: -N.p.o., IV famotidine : -Monitor renal function closely. [place] catheter. -IV fluid as above ID: -No indication for antibiotics at this time HEME: -Monitor CBC, CMP, coags ENDO: -Electrolyte replacement per protocol PROPH: -Bilateral lower extremity SCDs. Lovenox/famotidine LINES: -Utilize peripheral IVs, central line if needed CC time 35 min Code Status Full Discussed Condition With Dr. Rincon Problem Qualifiers (1) Altered mental status: Qualified Codes: R41.82 - Altered mental status, unspecified (2) Acute respiratory failure: Qualified Codes: J96.00 - Acute respiratory failure, unspecified whether with hypoxia or hypercapnia (3) Drug overdose, intentional: Qualified Codes: T50.902A - Poisoning by unspecified drugs, medicaments and biological substances, intentional self-harm, initial encounter Rubi Donald MD Dec 02, 2017 13:28
[2017-12-02] MEDS ORDERED: SODIUM CHLOR 0.9% 1000 ML INJ 1,000 ML IV ONE ×2 (13:30)
[2017-12-02] MEDS ORDERED: CHLORHEXIDINE GLUCONATE 2 % 1 PACK (2 CLOTHS) TOP PRN (13:45)
[2017-12-02] MEDS ORDERED: MISCELLANEOUS NURSING INFORMATION XX SCH (13:45)
[2017-12-02] MEDS ORDERED: RESP: ALBUTEROL 2.5 MG/3 ML NEB (PRN) INH (13:45)
[2017-12-02 13:47] LABS: ACETAMINOPHEN LESS THAN 2.0 MCG/ML (10.0-30.0); ALKALINE PHOSPHATASE 54 U/L (45-117); CHLORIDE 109 MEQ/L (98-107); SODIUM (NA) 145 MEQ/L (136-145); TOTAL BILIRUBIN ADULT 0.3 MG/DL (0.2-1.0); TOTAL PROTEIN 6.9 GM/DL (6.4-8.2); TROPONIN I LESS THAN 0.02 NG/ML (0.02-0.05)
--- NOTE | 2017-12-02 13:48 | RADRPT ---
EXAM DATE/TIME: 12/02/2017 13:37 [facility] COMPARISON: No previous studies available for comparison. INDICATIONS : Altered mental status, possible OD, found unresponsive. RADIATION DOSE: 64.63 CTDIvol (mGy) MEDICAL HISTORY : Cardiovascular disease. Hypertension. SURGICAL HISTORY : Cholecystectomy. ENCOUNTER: Initial ACUITY: 1 day PAIN SCALE: Non-responsive LOCATION: cranial TECHNIQUE: Multiple contiguous axial images were obtained of the head. Using automated exposure control and adj ustment of the mA and/or kV according to patient size, radiation dose was kept as low as reasonably a chievable to obtain optimal diagnostic quality images. DICOM format image data is available electro nically for review and comparison. FINDINGS: CEREBRUM: The ventricles are normal for age. No evidence of midline shift, mass lesion, hemorrhage or acute in farction. No extra-axial fluid collections are seen. POSTERIOR FOSSA: The cerebellum and brainstem are intact. The 4th ventricle is midline. The cerebellopontine angle i s unremarkable. EXTRACRANIAL: The visualized portion of the orbits is intact. SKULL: The calvaria is intact. No evidence of skull fracture. CONCLUSION: 1. No acute intracranial abnormalities. Retention cyst right maxillary sinus. Raad Dugan MD on December 02, 2017 at 13:43 Board Certified Radiologist. This report was verified electronically.
[2017-12-02] MEDS: ENOXAPARIN SODIUM 40 MG/0.4 ML SYRINGE SQ SCH (17:17)
[2017-12-02] MEDS: SODIUM CHLOR 0.9% 1000 ML INJ 1,000 ML IV SCH (17:17)
[2017-12-02] MEDS: PROPOFOL 1000 MG/100 ML INJ 100 ML IV PRN (17:18)
[2017-12-02] MEDS: ICU - POTASSIUM CHLORIDE/AQUEOUS SOLN 20 MEQ/100 ML IVPB IV PRN ×2 (18:28→21:45)
[2017-12-02] MEDS: FAMOTIDINE 20 MG/2 ML VIAL IV PUSH SCH (19:51)
[2017-12-02] MEDS: CHLORHEXIDINE 0.12% (ORAL KIT) 15 ML CUP MT SCH (19:51)
[2017-12-02] MEDS ORDERED: ICU - POTASSIUM PHOSPHATE 30 MMOL/NS 250 ML IV PRN ×2 (20:00)
[2017-12-02] MEDS ORDERED: ICU - MAGNESIUM SULFATE 2 GM/NS 100 ML IV PRN ×2 (20:00)
[2017-12-02] MEDS ORDERED: ICU - CALL ORDERING PHYSICIAN PRN (20:00)
[2017-12-02] MEDS ORDERED: POTASSIUM CHLORIDE 25 MEQ EFFERVESCENT TAB PO PRN (20:00)
[2017-12-02] MEDS ORDERED: ICU - SODIUM PHOSPHATE 30 MMOL/NS 250 ML IV PRN ×2 (20:00)
[2017-12-02] MEDS ORDERED: ICU - MAGNESIUM SULFATE 4 GM/NS 100 ML IV PRN ×2 (20:00)
[2017-12-02] MEDS: RESP: ALBUTEROL 2.5 MG/IPRATROPIUM 0.5 MG NEB (SCH) NEB (20:00)
[2017-12-02] MEDS ORDERED: ICU - POTASSIUM CHLORIDE/AQUEOUS SOLN 40 MEQ/100 ML IVPB IV PRN (20:00)
[2017-12-02] MEDS ORDERED: ICU - MAGNESIUM OXIDE 400 MG TAB PO PRN (20:00)
[2017-12-02] MEDS ORDERED: ICU - D/C ICU ELECTROLYTE ORDERS PRN (20:00)
[2017-12-02] MEDS ORDERED: ICU - POTASSIUM PHOSPHATE MONOBASIC 500 MG TAB PO PRN (20:00)
[2017-12-03] VITALS (20 sets, daily range): BP systolic 127–164; BP diastolic 84–106; PULSE 72–119; RESP 14–19; TEMP 97.5–99.8; O2SAT 98–100
[2017-12-03] MEDS: PROPOFOL 1000 MG/100 ML INJ 100 ML IV PRN ×4 (02:35→20:29)
[2017-12-03] MEDS: SODIUM CHLOR 0.9% 1000 ML INJ 1,000 ML IV SCH ×2 (03:05→17:28)
[2017-12-03] MEDS: RESP: ALBUTEROL 2.5 MG/IPRATROPIUM 0.5 MG NEB (SCH) NEB ×4 (03:59→19:43)
[2017-12-03] MEDS: CHLORHEXIDINE GLUCONATE 2 % 1 PACK (2 CLOTHS) TOP SCH (04:00)
[2017-12-03] MEDS: CHLORHEXIDINE 0.12% (ORAL KIT) 15 ML CUP MT SCH ×2 (08:00→19:15)
[2017-12-03] MEDS: FAMOTIDINE 20 MG/2 ML VIAL IV PUSH SCH ×2 (08:35→20:28)
[2017-12-03] MEDS: PANTOPRAZOLE SODIUM 40 MG VIAL IV PUSH SCH (08:36)
--- NOTE | 2017-12-03 09:58 | HHI.CCPN ---
Subjective Remarks/Hospital Course Mr. Sharma is a 47-year-old -[place] male who was brought to the [place] ED by EMS after being found unresponsive in a motel. EMS reported GCS was 3 upon their arrival. They found empty pill bottles of Ambien and Seroquel. Patient was tachycardic upon arrival to ED with sonorous respirations. As per EMS his oxygen saturation was in the 80s, put nasal cannula with improvement in Sats. Patient was not protecting his airway and was intubated by Dr. Rincon. Toxicology screen was essentially negative. Poison control was contacted and Dr. Rincon has ordered activated charcoal I evaluated the patient in the ED. he remains intubated, low-dose propofol started as the patient was starting to move spontaneously. On my exam, patient localizes with upper extremities withdraws lower extremities. Pupils remain pinpoint. CT of the head is pending at this time. Remains tachycardic, lactate is slightly elevated I will give additional 2 L normal saline bolus and maintenance fluid at 84 mL/h 12/03 Patient is intubated and sedated with Diprivan. Hypertensive. Afebrile. Objective Vital Signs Date Time Temp Pulse Resp B/P (MAP) Pulse Ox O2 Delivery O2 Flow Rate FiO2 12/03/17 08:37 100 35 12/03/17 08:00 78 12/03/17 08:00 98.4 14 156/97 (116) 12/02/17 13:59 Auto-Vent 12/02/17 11:36 4.00 Intake and Output 12/03/17 12/03/17 12/04/17 08:00 16:00 00:00 Intake Total 1200 ml Output Total 1450 ml Balance -250 ml Result Diagram: 12/02/17 1140 12/02/17 1140 Other Results Laboratory Tests Test 12/02/17 11:40 12/02/17 11:45 12/02/17 11:55 12/02/17 12:19 White Blood Count 4.0 TH/MM3 Red Blood Count 4.51 MIL/MM3 Hemoglobin 13.0 GM/DL Hematocrit 39.0 % Mean Corpuscular Volume 86.5 FL Mean Corpuscular Hemoglobin 28.9 PG Mean Corpuscular Hemoglobin Concent 33.4 % Red Cell Distribution Width 14.0 % Platelet Count 216 TH/MM3 Mean Platelet Volume 8.1 FL Neutrophils (%) (Auto) 51.2 % Lymphocytes (%) (Auto) 37.8 % Monocytes (%) (Auto) 6.7 % Eosinophils (%) (Auto) 3.1 % Basophils (%) (Auto) 1.2 % Neutrophils # (Auto) 2.0 TH/MM3 Lymphocytes # (Auto) 1.5 TH/MM3 Monocytes # (Auto) 0.3 TH/MM3 Eosinophils # (Auto) 0.1 TH/MM3 Basophils # (Auto) 0.0 TH/MM3 CBC Comment DIFF FINAL Differential Comment Prothrombin Time 11.6 SEC Prothromb Time International Ratio 1.1 RATIO Blood Urea Nitrogen 7 MG/DL Creatinine 1.04 MG/DL Random Glucose 152 MG/DL Total Protein 6.9 GM/DL Albumin 3.3 GM/DL Calcium Level 7.8 MG/DL Alkaline Phosphatase 54 U/L Aspartate Amino Transf (AST/SGOT) 19 U/L Alanine Aminotransferase (ALT/SGPT) 21 U/L Total Bilirubin 0.3 MG/DL Sodium Level 145 MEQ/L Potassium Level 3.4 MEQ/L Chloride Level 109 MEQ/L Carbon Dioxide Level 28.0 MEQ/L Anion Gap 8 MEQ/L Estimat Glomerular Filtration Rate 93 ML/MIN Total Creatine Kinase 402 U/L Creatine Kinase MB 2.3 NG/ML Creatine Kinase MB % 0.6 % Troponin I LESS THAN 0.02 NG/ML Thyroid Stimulating Hormone 3rd Gen 1.020 uIU/ML Salicylates Level LESS THAN 1.7 MG/DL Acetaminophen Level LESS THAN 2.0 MCG/ML Ethyl Alcohol Level LESS THAN 3 MG/DL Lactic Acid Level 2.1 mmol/L Ammonia 37 MCMOL/L Urine Color LIGHT-YELLOW Urine Turbidity CLEAR Urine pH 7.0 Urine Specific [place] 1.008 Urine Protein NEG mg/dL Urine Glucose (UA) NEG mg/dL Urine Ketones NEG mg/dL Urine Occult Blood NEG Urine Nitrite NEG Urine Bilirubin NEG Urine Urobilinogen LESS THAN 2.0 MG/DL Urine Leukocyte Esterase NEG Urine RBC LESS THAN 1 /hpf Urine WBC 1 /hpf Urine Mucus FEW /lpf Microscopic Urinalysis Comment CATH-CULT NOT IND Blood Gas Puncture Site RT RADIAL Blood Gas Patient Temperature 98.6 Blood Gas HCO3 25 mmol/L Blood Gas Base Excess 0.2 mmol/L Blood Gas Oxygen Saturation 99 % Arterial Blood pH 7.37 Arterial Blood Partial Pressure CO2 44 mmHg Arterial Blood Partial Pressure O2 454 mmHG Arterial Blood Oxygen Content 18.4 Vol % Arterial Blood Carboxyhemoglobin 0.7 % Arterial Blood Methemoglobin 0.6 % Blood Gas Hemoglobin 12.4 G/DL Oxygen Delivery Device VENTILATOR Blood Gas Ventilator Setting A/C 14/600/PEEP5 Blood Gas Inspired Oxygen 100 % Test 12/02/17 12:36 12/02/17 15:40 12/02/17 15:43 Urine Opiates Screen NEG Urine Barbiturates Screen NEG Urine Amphetamines Screen NEG Urine Benzodiazepines Screen NEG Urine Cocaine Screen NEG Urine Cannabinoids Screen NEG Nasal Screen MRSA (PCR) MRSA NOT DETECTED Lactic Acid Level 2.7 mmol/L Imaging Last Impressions Head CT 12/02/17 1136 Signed Impressions: Service Date/Time: Saturday, December 02, 2017 13:37 - CONCLUSION: 1. No acute intracranial abnormalities. Retention cyst right maxillary sinus. Raad Dugan MD Chest X-Ray 12/02/17 1136 Signed Impressions: Service Date/Time: Saturday, December 02, 2017 12:26 - CONCLUSION: Endotracheal tube with the tip just above the level of the clavicles. Recommend advancement 2 cm.. Linda Melchor MD Objective Remarks GENERAL: 47 yo intubated and sedated SKIN: Focused skin assessment warm/dry. HEAD: Atraumatic. Normocephalic. EYES: Pupils equal and round, approximately 1mm sluggish. ENT: Oral mucosa is dry, orotracheally intubated NECK: Trachea midline. No JVD. CARDIOVASCULAR: Tachycardic rate and rhythm. No murmur appreciated. RESPIRATORY: PRVC/AC. Clear to auscultation. Breath sounds equal bilaterally. GASTROINTESTINAL: Abdomen soft, non-tender, nondistended. Hepatic and splenic margins not palpable. MUSCULOSKELETAL: No obvious deformities. No clubbing. No cyanosis. No edema. NEUROLOGICAL: Intubated, sedated A/P Assessment and Plan NEURO: Intentional overdose with Seroquel and Ambien Acute encephalopathy -Poison control contacted by ED -Activated charcoal being given, supportive therapy, IV hydration -Watch closely for QT, QRS abnormalities on EKG -Propofol for sedation and vent synchrony -Daily sedation vacation -CT head -negative for acute findings -Psychiatric consult once extubated RESP: Acute respiratory failure -Intubated for airway protection -ACV, ventilator bundle, head of the bed elevation 30 -DuoNeb every 6 hours as needed -SBT daily as dariana CV: Sinus tachycardia Mild lactic acidosis -NS@ 84 mL/h Monitor HR and BP keep MAP>65mmHg Place on cardizem 60mg Q6 for BP control GI: -N.p.o., IV famotidine -Start tube feeds today if remains intubated : -Monitor renal function, I/O's, electrolytes replacement per protocol. ID: -No indication for antibiotics at this time Monitor for signs of infections ( Fever, WBC) HEME: -Monitor CBC, CMP, coags ENDO: -SSI if needed for glycemic control PROPH: -Bilateral lower extremity SCDs. Lovenox/famotidine LINES: -Utilize peripheral IVs, Follow up on labs today Level 3 Faraz Russell MD Dec 03, 2017 09:58
[2017-12-03] MEDS ORDERED: hydrALAZINE HCL 20 MG/ML VIAL IV PUSH PRN (10:00)
[2017-12-03] MEDS: DILTIAZEM HCL 60 MG TAB PO SCH ×3 (10:12→20:28)
[2017-12-03 12:59] LABS: AUTOMATED NEUTROPHIL # 8.4 TH/MM3 (1.8-7.7); BASOPHIL % 0.4 % (0.0-2.0); EOSINOPHIL # 0.1 TH/MM3 (0-0.4); EOSINOPHIL % 1.4 % (0.0-4.0); HEMATOCRIT 44.3 % (39.0-51.0); HEMOGLOBIN 14.6 GM/DL (13.0-17.0); LYMPH % 11.2 % (9.0-44.0); LYMPHOCYTE # 1.1 TH/MM3 (1.0-4.8); MEAN CORPUSCULAR HEMOGLOBIN 29.3 PG (27.0-34.0); MEAN PLATELET VOLUME 8.2 FL (7.0-11.0); MONOCYTE # 0.5 TH/MM3 (0-0.9); PLATELET COUNT 201 TH/MM3 (150-450); RED BLOOD COUNT 4.99 MIL/MM3 (4.50-5.90); RED CELL DISTRIBUTION WIDTH 14.9 % (11.6-17.2); WHITE BLOOD COUNT 10.3 TH/MM3 (4.0-11.0)
[2017-12-03 13:08] LABS: ALBUMIN 3.6 GM/DL (3.4-5.0); ALT (GPT) 24 U/L (12-78); AST (GOT) 23 U/L (15-37); BICARBONATE 25.7 MEQ/L (21.0-32.0); BLOOD UREA NITROGEN 3 MG/DL (7-18); CALCIUM 8.7 MG/DL (8.5-10.1); CHLORIDE 114 MEQ/L (98-107); CREATININE 1.08 MG/DL (0.60-1.30); GLOMERULAR FILTRATION RATE 89 ML/MIN (>89); GLUCOSE,RANDOM 84 MG/DL (74-106); SODIUM (NA) 146 MEQ/L (136-145)
[2017-12-03 13:11] LABS: ALKALINE PHOSPHATASE 63 U/L (45-117); TOTAL BILIRUBIN ADULT 0.4 MG/DL (0.2-1.0); TOTAL PROTEIN 7.9 GM/DL (6.4-8.2)
[2017-12-03] MEDS ORDERED: DILTIAZEM HCL 50 MG/10 ML VIAL IV ONE (13:15)
[2017-12-03] MEDS: hydrALAZINE HCL 25 MG TAB PO SCH ×2 (14:13→20:28)
[2017-12-03] MEDS: ENOXAPARIN SODIUM 40 MG/0.4 ML SYRINGE SQ SCH (14:14)
--- NOTE | 2017-12-03 15:27 | EKG ---
Date Performed: 12/02/2017 Time Performed: 11:46:49 PTAGE: 47 years EKG: SINUS TACHYCARDIA, POSSIBLE ATRIAL FLUTTER LEFT VENTRICULAR HYPERTROPHY AND ST-T CHANGE Sin ce the previous tracing, no significant change noted ABNORMAL ECG PREVIOUS TRACING : 06/05/2017 12.49 DOCTOR: Cori Rascon Interpretating Date/Time 12/03/2017 15:19:15
[2017-12-04] VITALS (18 sets, daily range): BP systolic 128–172; BP diastolic 76–95; PULSE 91–103; RESP 14–25; TEMP 99–100.8; O2SAT 10–100
[2017-12-04] MEDS: SODIUM CHLOR 0.9% 1000 ML INJ 1,000 ML IV SCH (00:35)
[2017-12-04] MEDS: PROPOFOL 1000 MG/100 ML INJ 100 ML IV PRN ×2 (01:11→05:26)
[2017-12-04] MEDS: CHLORHEXIDINE GLUCONATE 2 % 1 PACK (2 CLOTHS) TOP SCH (02:24)
[2017-12-04] MEDS: RESP: ALBUTEROL 2.5 MG/IPRATROPIUM 0.5 MG NEB (SCH) NEB ×4 (03:15→21:31)
[2017-12-04] MEDS: hydrALAZINE HCL 25 MG TAB PO SCH ×3 (05:26→20:35)
[2017-12-04] MEDS: DILTIAZEM HCL 60 MG TAB PO SCH ×4 (05:26→20:34)
[2017-12-04 06:41] LABS: AUTOMATED NEUTROPHIL # 5.1 TH/MM3 (1.8-7.7); BASOPHIL % 0.6 % (0.0-2.0); EOSINOPHIL # 0.1 TH/MM3 (0-0.4); HEMATOCRIT 36.1 % (39.0-51.0); HEMOGLOBIN 12.1 GM/DL (13.0-17.0); LYMPH % 16.4 % (9.0-44.0); LYMPHOCYTE # 1.1 TH/MM3 (1.0-4.8); MEAN CORPUSCULAR HEMOGLOBIN 29.1 PG (27.0-34.0); MEAN CORPUSCULAR HGB CONC 33.4 % (32.0-36.0); MEAN PLATELET VOLUME 8.6 FL (7.0-11.0); MONO % 6.5 % (0.0-8.0); MONOCYTE # 0.4 TH/MM3 (0-0.9); NEUT % 75.5 % (16.0-70.0); PLATELET COUNT 185 TH/MM3 (150-450); RED BLOOD COUNT 4.15 MIL/MM3 (4.50-5.90); RED CELL DISTRIBUTION WIDTH 14.6 % (11.6-17.2); WHITE BLOOD COUNT 6.7 TH/MM3 (4.0-11.0)
[2017-12-04 07:08] LABS: BICARBONATE 27.8 MEQ/L (21.0-32.0); CALCIUM 7.8 MG/DL (8.5-10.1); CREATININE 1.17 MG/DL (0.60-1.30); MAGNESIUM 1.9 MG/DL (1.5-2.5); PHOSPHORUS 3.1 MG/DL (2.5-4.9)
[2017-12-04] MEDS: CHLORHEXIDINE 0.12% (ORAL KIT) 15 ML CUP MT SCH ×2 (08:00→19:20)
--- NOTE | 2017-12-04 09:50 | HHI.CCPN ---
Subjective Remarks/Hospital Course Mr. Sharma is a 47-year-old -[place] male who was brought to the [facility] ED by EMS after being found unresponsive in a motel. EMS reported GCS was 3 upon their arrival. They found empty pill bottles of Ambien and Seroquel. Patient was tachycardic upon arrival to ED with sonorous respirations. As per EMS his oxygen saturation was in the 80s, put nasal cannula with improvement in Sats. Patient was not protecting his airway and was intubated by Dr. Rincon. Toxicology screen was essentially negative. Poison control was contacted and Dr. Rincon has ordered activated charcoal I evaluated the patient in the ED. he remains intubated, low-dose propofol started as the patient was starting to move spontaneously. On my exam, patient localizes with upper extremities withdraws lower extremities. Pupils remain pinpoint. CT of the head is pending at this time. Remains tachycardic, lactate is slightly elevated I will give additional 2 L normal saline bolus and maintenance fluid at 84 mL/h 12/03 Patient is intubated and sedated with Diprivan. Hypertensive. Afebrile. 12/04 No events overnight. Remains intubated and sedated Objective Vital Signs Date Time Temp Pulse Resp B/P (MAP) Pulse Ox O2 Delivery O2 Flow Rate FiO2 12/04/17 08:08 10 35 12/04/17 06:00 93 12/04/17 04:00 99.0 14 128/76 (93) 12/02/17 13:59 Auto-Vent 12/02/17 11:36 4.00 Intake and Output 12/04/17 12/04/17 12/05/17 08:00 16:00 00:00 Intake Total 1750 ml Output Total 1500 ml Balance 250 ml Result Diagram: 12/04/17 0500 12/04/17 0500 Other Results Laboratory Tests Test 12/03/17 12:07 12/04/17 05:00 White Blood Count 10.3 TH/MM3 6.7 TH/MM3 Red Blood Count 4.99 MIL/MM3 4.15 MIL/MM3 Hemoglobin 14.6 GM/DL 12.1 GM/DL Hematocrit 44.3 % 36.1 % Mean Corpuscular Volume 89.0 FL 87.0 FL Mean Corpuscular Hemoglobin 29.3 PG 29.1 PG Mean Corpuscular Hemoglobin Concent 33.0 % 33.4 % Red Cell Distribution Width 14.9 % 14.6 % Platelet Count 201 TH/MM3 185 TH/MM3 Mean Platelet Volume 8.2 FL 8.6 FL Neutrophils (%) (Auto) 82.0 % 75.5 % Lymphocytes (%) (Auto) 11.2 % 16.4 % Monocytes (%) (Auto) 5.0 % 6.5 % Eosinophils (%) (Auto) 1.4 % 1.0 % Basophils (%) (Auto) 0.4 % 0.6 % Neutrophils # (Auto) 8.4 TH/MM3 5.1 TH/MM3 Lymphocytes # (Auto) 1.1 TH/MM3 1.1 TH/MM3 Monocytes # (Auto) 0.5 TH/MM3 0.4 TH/MM3 Eosinophils # (Auto) 0.1 TH/MM3 0.1 TH/MM3 Basophils # (Auto) 0.0 TH/MM3 0.0 TH/MM3 CBC Comment DIFF FINAL DIFF FINAL Differential Comment Blood Urea Nitrogen 3 MG/DL 6 MG/DL Creatinine 1.08 MG/DL 1.17 MG/DL Random Glucose 84 MG/DL 102 MG/DL Total Protein 7.9 GM/DL Albumin 3.6 GM/DL Calcium Level 8.7 MG/DL 7.8 MG/DL Alkaline Phosphatase 63 U/L Aspartate Amino Transf (AST/SGOT) 23 U/L Alanine Aminotransferase (ALT/SGPT) 24 U/L Total Bilirubin 0.4 MG/DL Sodium Level 146 MEQ/L 147 MEQ/L Potassium Level 3.9 MEQ/L 3.3 MEQ/L Chloride Level 114 MEQ/L 112 MEQ/L Carbon Dioxide Level 25.7 MEQ/L 27.8 MEQ/L Anion Gap 6 MEQ/L 7 MEQ/L Estimat Glomerular Filtration Rate 89 ML/MIN 81 ML/MIN Phosphorus Level 3.1 MG/DL Magnesium Level 1.9 MG/DL Imaging Last Impressions Head CT 12/02/17 113 Signed Impressions: Service Date/Time: Saturday, December 02, 2017 13:37 - CONCLUSION: 1. No acute intracranial abnormalities. Retention cyst right maxillary sinus. Raad Dugan MD Chest X-Ray 12/02/17 1136 Signed Impressions: Service Date/Time: Saturday, December 02, 2017 12:26 - CONCLUSION: Endotracheal tube with the tip just above the level of the clavicles. Recommend advancement 2 cm.. Linda Melchor MD Objective Remarks GENERAL: 47 yo intubated and sedated SKIN: Focused skin assessment warm/dry. HEAD: Atraumatic. Normocephalic. EYES: Pupils equal and round, approximately 1mm sluggish. ENT: Oral mucosa is dry, orotracheally intubated NECK: Trachea midline. No JVD. CARDIOVASCULAR: Tachycardic rate and rhythm. No murmur appreciated. RESPIRATORY: PRVC/AC. Clear to auscultation. Breath sounds equal bilaterally. GASTROINTESTINAL: Abdomen soft, non-tender, nondistended. Hepatic and splenic margins not palpable. MUSCULOSKELETAL: No obvious deformities. No clubbing. No cyanosis. No edema. NEUROLOGICAL: Intubated, sedated A/P Assessment and Plan NEURO: Intentional overdose with Seroquel and Ambien Acute encephalopathy -Poison control contacted by ED -s/p charcoal in ED -Watch closely for QT, QRS abnormalities on EKG -Propofol for sedation and vent synchrony -Daily sedation vacation -CT head -negative for acute findings -Psychiatric consult once extubated RESP: Acute respiratory failure -Intubated for airway protection -ACV, ventilator bundle, head of the bed elevation 30 -DuoNeb every 6 hours as needed -SBT daily as dariana CV: Sinus tachycardia Mild lactic acidosis -NS@ 84 mL/h Monitor HR and BP keep MAP>65mmHg On Cardizem 60mg Q6 and Hydralazine 25mg Q8 GI: - IV famotidine for GI prophylaxis - On tube feeds Glucerna 1.5 @50ml/hr : -Monitor renal function, I/O's, electrolytes replacement per protocol. d/c IVF. Will need K replacement today ID: -No indication for antibiotics at this time Monitor for signs of infections ( Fever, WBC) HEME: -Monitor CBC, CMP, coags ENDO: -SSI if needed for glycemic control PROPH: -Bilateral lower extremity SCDs. Lovenox/famotidine LINES: -Utilize peripheral IVs, Addendum: Patient was extubated and is on 2L oxygen appears hemodynamically stable patient states he was trying to commit suicide when he overdosed on Ambien and Seroquel. He also has prior hx suicide attempts. Awaiting psych eval. Will sign off and transfer care to [facility] Level 3 Faraz Russell MD Dec 04, 2017 09:50
[2017-12-04] MEDS: PANTOPRAZOLE SODIUM 40 MG VIAL IV PUSH SCH (10:13)
[2017-12-04] MEDS: FAMOTIDINE 20 MG TAB PO SCH ×2 (10:14→20:35)
[2017-12-04] MEDS: ENOXAPARIN SODIUM 40 MG/0.4 ML SYRINGE SQ SCH (14:00)
[2017-12-05] VITALS (7 sets, daily range): BP systolic 138–169; BP diastolic 81–97; PULSE 86–95; RESP 16–24; TEMP 99.1–99.8; O2SAT 96–99
[2017-12-05] MEDS: CHLORHEXIDINE GLUCONATE 2 % 1 PACK (2 CLOTHS) TOP SCH (02:58)
[2017-12-05] MEDS: RESP: ALBUTEROL 2.5 MG/IPRATROPIUM 0.5 MG NEB (SCH) NEB ×2 (04:26→08:01)
[2017-12-05] MEDS: DILTIAZEM HCL 60 MG TAB PO SCH ×2 (04:37→09:25)
[2017-12-05] MEDS: hydrALAZINE HCL 25 MG TAB PO SCH (04:37)
[2017-12-05 07:38] LABS: AUTOMATED NEUTROPHIL # 4.4 TH/MM3 (1.8-7.7); BASOPHIL % 0.6 % (0.0-2.0); EOSINOPHIL # 0.1 TH/MM3 (0-0.4); EOSINOPHIL % 2.2 % (0.0-4.0); HEMATOCRIT 35.8 % (39.0-51.0); HEMOGLOBIN 12.1 GM/DL (13.0-17.0); LYMPH % 22.6 % (9.0-44.0); LYMPHOCYTE # 1.4 TH/MM3 (1.0-4.8); MEAN CELL VOLUME 87.2 FL (80.0-100.0); MEAN CORPUSCULAR HEMOGLOBIN 29.3 PG (27.0-34.0); MEAN CORPUSCULAR HGB CONC 33.7 % (32.0-36.0); MEAN PLATELET VOLUME 8.4 FL (7.0-11.0); MONO % 6.5 % (0.0-8.0); MONOCYTE # 0.4 TH/MM3 (0-0.9); NEUT % 68.1 % (16.0-70.0); PLATELET COUNT 185 TH/MM3 (150-450); RED BLOOD COUNT 4.11 MIL/MM3 (4.50-5.90); RED CELL DISTRIBUTION WIDTH 14.8 % (11.6-17.2); WHITE BLOOD COUNT 6.4 TH/MM3 (4.0-11.0)
[2017-12-05] MEDS: CHLORHEXIDINE 0.12% (ORAL KIT) 15 ML CUP MT SCH (08:00)
[2017-12-05 08:02] LABS: BICARBONATE 24.4 MEQ/L (21.0-32.0); CALCIUM 8.2 MG/DL (8.5-10.1); CREATININE 1.19 MG/DL (0.60-1.30)
[2017-12-05] MEDS ORDERED: POTASSIUM CHLORIDE 10 MEQ CONTROLLED RELEASE TAB PO ONE (08:30)
[2017-12-05] MEDS: PANTOPRAZOLE SODIUM 40 MG VIAL IV PUSH SCH (09:24)
[2017-12-05] MEDS: FAMOTIDINE 20 MG TAB PO SCH (09:25)
[2017-12-05] MEDS ORDERED: CLON0.1T PO ×2 (10:21→14:52)
--- NOTE | 2017-12-05 10:23 | HHI.DS ---
Discharge Summary Admission Date Dec 02, 2017 at 12:01 Discharge Date: Dec 05, 2017 Admitting Diagnosis Unresponsive, possible overdose (1) Altered mental status ICD Code: R41.82 - Altered mental status, unspecified Diagnosis: Principal (2) Acute encephalopathy ICD Code: G93.40 - Encephalopathy, unspecified Diagnosis: Principal (3) Acute respiratory failure ICD Code: J96.00 - Acute respiratory failure, unspecified whether with hypoxia or hypercapnia Diagnosis: Principal (4) Drug overdose, intentional ICD Code: T50.902A - Poisoning by unspecified drugs, medicaments and biological substances, intentional self-harm, initial encounter Diagnosis: Principal (5) Lactic acidosis ICD Code: E87.2 - Acidosis Diagnosis: Principal (6) HTN (hypertension) ICD Code: I10 - Essential (primary) hypertension Diagnosis: Secondary Status: Acute (7) Chronic post-traumatic stress disorder (PTSD) ICD Code: F43.12 - Post-traumatic stress disorder, chronic Diagnosis: Secondary (8) Bipolar 1 disorder, depressed, moderate ICD Code: F31.32 - Bipolar disorder, current episode depressed, moderate Diagnosis: Secondary Procedures Intubation/Extubation Brief History - From Admission Mr. Sharma is a 47-year-old -[place] male who was brought to the [place] ED by EMS after being found unresponsive in a motel. EMS reported GCS was 3 upon their arrival. They found empty pill bottles of Ambien and Seroquel. Patient was tachycardic upon arrival to ED with sonorous respirations. As per EMS his oxygen saturation was in the 80s, put nasal cannula with improvement in Sats. Patient was not protecting his airway and was intubated by Dr. Rincon. Toxicology screen was essentially negative. Poison control was contacted and Dr. Rincon has ordered activated charcoal I evaluated the patient in the ED. he remains intubated, low-dose propofol started as the patient was starting to move spontaneously. On my exam, patient localizes with upper extremities withdraws lower extremities. Pupils remain pinpoint. CT of the head is pending at this time. Remains tachycardic, lactate is slightly elevated I will give additional 2 L normal saline bolus and maintenance fluid at 84 mL/h CBC/BMP: 12/05/17 0630 12/05/17 0630 Significant Findings Laboratory Tests Test 12/02/17 11:40 12/02/17 11:45 12/02/17 11:55 12/02/17 12:19 Random Glucose 152 MG/DL (74-106) Albumin 3.3 GM/DL (3.4-5.0) Calcium Level 7.8 MG/DL (8.5-10.1) Potassium Level 3.4 MEQ/L (3.5-5.1) Chloride Level 109 MEQ/L (98-107) Total Creatine Kinase 402 U/L (39-308) Troponin I LESS THAN 0.02 NG/ML Salicylates Level LESS THAN 1.7 MG/DL Acetaminophen Level LESS THAN 2.0 MCG/ML Lactic Acid Level 2.1 mmol/L (0.4-2.0) Ammonia 37 MCMOL/L (11-32) Urine Mucus FEW /lpf (OCC) Arterial Blood pH 7.37 (7.380-7.420) Arterial Blood Partial Pressure CO2 44 mmHg (38-42) Arterial Blood Partial Pressure O2 454 mmHG (61-120) Test 12/02/17 12:36 12/02/17 15:40 12/02/17 15:43 12/03/17 12:07 Lactic Acid Level 2.7 mmol/L (0.4-2.0) Neutrophils (%) (Auto) 82.0 % (16.0-70.0) Neutrophils # (Auto) 8.4 TH/MM3 (1.8-7.7) Blood Urea Nitrogen 3 MG/DL (7-18) Sodium Level 146 MEQ/L (136-145) Chloride Level 114 MEQ/L (98-107) Test 12/04/17 05:00 12/04/17 12:02 12/04/17 16:00 12/05/17 06:30 Red Blood Count 4.15 MIL/MM3 (4.50-5.90) 4.11 MIL/MM3 (4.50-5.90) Hemoglobin 12.1 GM/DL (13.0-17.0) 12.1 GM/DL (13.0-17.0) Hematocrit 36.1 % (39.0-51.0) 35.8 % (39.0-51.0) Neutrophils (%) (Auto) 75.5 % (16.0-70.0) Blood Urea Nitrogen 6 MG/DL (7-18) Calcium Level 7.8 MG/DL (8.5-10.1) 8.2 MG/DL (8.5-10.1) Sodium Level 147 MEQ/L (136-145) Potassium Level 3.3 MEQ/L (3.5-5.1) 3.3 MEQ/L (3.5-5.1) Chloride Level 112 MEQ/L (98-107) 108 MEQ/L (98-107) Estimat Glomerular Filtration Rate 81 ML/MIN (>89) 79 ML/MIN (>89) Blood Gas HCO3 27 mmol/L (22-26) Blood Gas Base Excess 2.4 mmol/L (-2-2) Arterial Blood Partial Pressure CO2 43 mmHg (38-42) Arterial Blood Partial Pressure O2 137 mmHg (61-120) Random Glucose 122 MG/DL (74-106) Hospital Course Mr. Sharma is a 47-year-old male. He was admitted secondary to overdose of Seroquel and Ambien. This is apparently a suicide attempt. He was found unresponsive in a hotel room. Upon arrival he had to be intubated. She was maintained on the ventilator and extubated yesterday. He's been doing good status post extubation. Labs show no acute metabolic disturbances or evidence of organ damage. At this point is medically stable for transfer to [facility]. He will need further psychiatric evaluation and care. Pt Condition on Discharge: Stable Discharge Disposition: Disc to Psych Care Fac Discharge Time: > 30 minutes Discharge Instructions DIET: Follow Instructions for: As Tolerated, No Restrictions Activities you can perform: Regular-No Restrictions Flex Rojas MD Dec 05, 2017 10:23
[2017-12-05] MEDS ORDERED: HYDR25TA5 PO (14:52)
[2017-12-05] MEDS ORDERED: AMLO10TA2 PO (14:52)
== END 2017-12-05 11:35 | DRG 917 ==
LOC: NEPC 11:24 → NEDA 12:01 → HIMN 14:37
PROVIDERS: ADMIT Hospitalist; ATTEND Hospitalist
PROC: 5A1945Z Respiratory Ventilation, 24-96 Consecutive Hours (ICD-10-PCS; principal; 2017-12-02)
PROC: 0BH17EZ Insertion of Endotracheal Airway into Trachea, Via Natural or Artificial Opening (ICD-10-PCS; 2017-12-02)
DX: T43.592A Poisoning by other antipsychotics and neuroleptics, intentional self-harm, initial encounter (principal); J96.00 Acute respiratory failure, unspecified whether with hypoxia or hypercapnia; G92 Toxic encephalopathy; F31.32 Bipolar disorder, current episode depressed, moderate; E87.2 Acidosis; I10 Essential (primary) hypertension; R00.0 Tachycardia, unspecified; R40.2432 Glasgow coma scale score 3-8, at arrival to emergency department; F43.12 Post-traumatic stress disorder, chronic; Z91.5 Personal history of self-harm
CPT/HCPCS: 31500; 36600; 43752; 51702; 70450; 71045; 80048; 80053; 80307; 81001; 82140; 82550; 82552; 82805; 83605; 83735; 84100; 84132; 84443; 84484; 85025; 85610; 87040; 87070; 87205; 87641; 93005; 94002; 94003; 94150; 94640; 94664; C9113; J0330; J0360; J1650; J2250; J3480; J7030

== ENCOUNTER 2017-12-05 11:02 | Inpatient (IN) | payer OTHER ==
[~2017-12-05] VITALS: Ht 172.7 cm; Wt 96.6 kg
[~2017-12-05 11:02] MED LIST changes: +CLON0.1T PO
[2017-12-05] MEDS ORDERED: LORazepam 1 MG TAB PO PRN (12:00)
[2017-12-05] MEDS ORDERED: MAGNESIUM HYDROXIDE SUSP 30 ML CUP PO PRN (12:00)
[2017-12-05] MEDS ORDERED: cloNIDine HCL 0.1 MG TAB PO PRN (12:00)
[2017-12-05] MEDS ORDERED: ALUMINUM/MAGNESIUM/SIMETH 30 ML CUP PO PRN (12:00)
[2017-12-05] MEDS ORDERED: LORazepam 0.5 MG TAB PO PRN (12:00)
[2017-12-05] MEDS ORDERED: LORazepam 2 MG/ML VIAL IM PRN ×2 (12:00)
[2017-12-05] MEDS: NICOTINE 21 MG/24 HR PATCH T-DERMAL SCH (12:00)
[2017-12-05 12:56] VITALS: BP 144/91; PULSE 87; RESP 18; TEMP 98.5; O2SAT 98
[2017-12-05] MEDS ORDERED: PILL SPLITTER OTHER PRN (13:00)
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
[2017-12-05] MEDS: SERTRALINE HCL 100 MG TAB PO SCH (14:04)
[2017-12-05] MEDS: HYDROCHLOROTHIAZIDE 25 MG TAB PO SCH (14:05)
--- NOTE | 2017-12-05 14:43 | PD.CONS ---
[facility] By [facility] Care Physician Unknown Diagnoses: History of Present Illness Mr. Sharma is a 47 year old male. He was admitted to ICU for intubation and ventilation secondary to overdose of Ambien and Seroquel. He was medically cleared for discharge earlier today and is admitted under psychiatry care. Patient has had some hypertension while here. Treatments are in place. One day further monitoring of CBC and CMP is recommended. No complaints from the patient, no pain, no nausea or vomiting. Review of Systems Constitutional: DENIES: Fatigue, Fever, Chills Eyes: DENIES: Diplopia, Eye inflammation, Eye pain Ears, nose, mouth, throat: DENIES: Hearing loss, Vertigo, Nasal discharge Respiratory: DENIES: Cough, Wheezing, Shortness of breath Cardiovascular: DENIES: Palpitations, Syncope, Dyspnea on Exertion Gastrointestinal: DENIES: Abdominal pain, Black stools, Bloody stools Musculoskeletal: DENIES: Joint pain, Muscle aches, Stiffness, Joint Swelling Hematologic/lymphatic: DENIES: Bruising, Lymphadenopathy Immunologic/allergic: DENIES: Eczema, Urticaria Neurologic: DENIES: Abnormal gait, Headache, Paresthesias Psychiatric: DENIES: Anxiety, Confusion, Hallucinations Past Family Social History Allergies: Coded Allergies: No Known Allergies (Unverified , 09/03/12) Past Medical History Hypertension Bipolar Depression Past Surgical History Cholecystectomy Reported Medications Reported Meds & Active Scripts Active Clonidine (Clonidine HCl) 0.1 Mg Tab 0.1 Mg PO BID PRN Hydrochlorothiazide 25 Mg Tab 25 Mg PO DAILY Zoloft (Sertraline HCl) 100 Mg Tab 150 Mg PO DAILY 30 Days Amlodipine (Amlodipine Besylate) 10 Mg Tab 10 Mg PO DAILY Active Ordered Medications Administered Medications Medications (Trade) Dose Ordered Sig/Lucila Route PRN Reason Start Time Stop Time Status Last Admin Dose Admin Amlodipine Besylate (Norvasc) 10 mg DAILY PO 12/05/17 12:00 12/05/17 14:03 Hydrochlorothiazide (Hydrodiuril) 25 mg DAILY PO 12/05/17 12:00 12/05/17 14:05 Sertraline HCl (Zoloft) 150 mg DAILY PO 12/05/17 12:00 12/05/17 14:04 Family History None Social History No smoking, no alcohol abuse, no illicit drug abuse Physical Exam Vital Signs Vital Signs Date Time Temp Pulse Resp B/P (MAP) Pulse Ox O2 Delivery O2 Flow Rate FiO2 12/05/17 12:56 98.5 87 18 144/91 (108) 98 Physical Exam GENERAL: NAD, A&Ox3 HEAD: Normocephalic. NECK: Supple, trachea midline. No lymphadenopathy. EYES: No scleral icterus. No injection or drainage. CARDIOVASCULAR: Regular rate and rhythm without murmurs, gallops, or rubs. RESPIRATORY: Breath sounds equal bilaterally. No accessory muscle use. GASTROINTESTINAL: Abdomen soft, non-tender, nondistended. MUSCULOSKELETAL: No cyanosis, or edema. SKIN: Warm and dry. NEURO: No focal neurological deficitis. Assessment and Plan Problem List: (1) Bipolar 1 disorder, depressed, moderate ICD Code: F31.32 - Bipolar disorder, current episode depressed, moderate Status: Acute (2) Lactic acidosis ICD Code: E87.2 - Acidosis (3) Chronic post-traumatic stress disorder (PTSD) ICD Code: F43.12 - Post-traumatic stress disorder, chronic (4) Acute encephalopathy ICD Code: G93.40 - Encephalopathy, unspecified (5) Drug overdose, intentional ICD Code: T50.902A - Poisoning by unspecified drugs, medicaments and biological substances, intentional self-harm, initial encounter (6) HTN (hypertension) ICD Code: I10 - Essential (primary) hypertension Status: Acute Assessment and Plan 47-year-old male admitted secondary to Seroquel and Ambien overdose Bipolar depression Suicide attempt Continue management under psychiatry Seroquel overdose Ambien overdose Patient has been extubated Follow CBC and BMP for one day more Hypertension Continue baseline treatment (amlodipine, hydrochlorothiazide) Monitor blood pressures As needed clonidine started at discharge from last hospitalization today and will be continued DVT prophylaxis Ambulatory Flex Rojas MD Dec 05, 2017 14:43
[2017-12-05] MEDS ORDERED: CLON0.1T PO (14:52)
[2017-12-05] MEDS ORDERED: AMLO10TA2 PO (14:52)
[2017-12-05] MEDS ORDERED: HYDR25TA5 PO (14:52)
[2017-12-05 18:00] VITALS: BP 143/88; PULSE 81; RESP 18; TEMP 98.4; O2SAT 97
[2017-12-05] MEDS: REMOVE OLD NICODERM (NICOTINE) PATCH T-DERMAL SCH (21:00)
[2017-12-05] MEDS: PRAZOSIN HCL 5 MG CAP PO SCH (21:58)
[2017-12-06 06:00] VITALS: BP 118/73; PULSE 102; RESP 18; TEMP 98; O2SAT 97
[2017-12-06 08:17] LABS: AUTOMATED NEUTROPHIL # 3.8 TH/MM3 (1.8-7.7); BASOPHIL % 0.7 % (0.0-2.0); EOSINOPHIL # 0.2 TH/MM3 (0-0.4); EOSINOPHIL % 3.5 % (0.0-4.0); HEMATOCRIT 37.1 % (39.0-51.0); HEMOGLOBIN 12.6 GM/DL (13.0-17.0); LYMPH % 19.1 % (9.0-44.0); MEAN CELL VOLUME 85.4 FL (80.0-100.0); MEAN CORPUSCULAR HGB CONC 33.9 % (32.0-36.0); MEAN PLATELET VOLUME 7.8 FL (7.0-11.0); MONO % 6.9 % (0.0-8.0); MONOCYTE # 0.4 TH/MM3 (0-0.9); NEUT % 69.8 % (16.0-70.0); PLATELET COUNT 186 TH/MM3 (150-450); RED BLOOD COUNT 4.35 MIL/MM3 (4.50-5.90); RED CELL DISTRIBUTION WIDTH 13.9 % (11.6-17.2); WHITE BLOOD COUNT 5.4 TH/MM3 (4.0-11.0)
[2017-12-06] MEDS: HYDROCHLOROTHIAZIDE 25 MG TAB PO SCH (08:20)
[2017-12-06] MEDS: SERTRALINE HCL 100 MG TAB PO SCH (08:21)
[2017-12-06 08:50] LABS: ALBUMIN 3.4 GM/DL (3.4-5.0); AST (GOT) 16 U/L (15-37); BICARBONATE 25.9 MEQ/L (21.0-32.0); BLOOD UREA NITROGEN 13 MG/DL (7-18); CALCIUM 8.9 MG/DL (8.5-10.1); CHLORIDE 105 MEQ/L (98-107); CREATININE 1.17 MG/DL (0.60-1.30); GLOMERULAR FILTRATION RATE 81 ML/MIN (>89); GLUCOSE,RANDOM 117 MG/DL (74-106); SODIUM (NA) 138 MEQ/L (136-145)
[2017-12-06 08:51] LABS: ALT (GPT) 19 U/L (12-78); CHOLESTEROL 138 MG/DL (120-200)
[2017-12-06 08:53] LABS: ALKALINE PHOSPHATASE 56 U/L (45-117); HDL CHOLESTEROL 34.5 MG/DL (40.0-60.0); LDL CHOLESTEROL 75 MG/DL (0-99); TOTAL BILIRUBIN ADULT 0.7 MG/DL (0.2-1.0); TOTAL PROTEIN 7.5 GM/DL (6.4-8.2); TRIGLYCERIDES 144 MG/DL (42-150)
[2017-12-06] MEDS: NICOTINE 21 MG/24 HR PATCH T-DERMAL SCH (09:00)
--- NOTE | 2017-12-06 11:36 | HHI.PR ---
Subjective Remarks Follow up on patient OD. Patient seen and examined. Patient asleep but awakens to voice. Reports mild cough and sore throat. Endorses mild dizziness lying in bed. Denies any fever of chills. Denies any chest pain or dyspnea. Denies any nausea, vomiting or abdominal pain. Denies any difficulties with urinating. Objective Vitals Vital Signs Date Time Temp Pulse Resp B/P (MAP) Pulse Ox O2 Delivery O2 Flow Rate FiO2 12/06/17 06:00 98.0 102 18 118/73 (88) 97 12/05/17 18:00 98.4 81 18 143/88 (106) 97 12/05/17 12:56 98.5 87 18 144/91 (108) 98 I/O 12/05/17 12/05/17 12/05/17 12/06/17 12/06/17 12/06/17 07:00 15:00 23:00 07:00 15:00 23:00 Intake Total 360 ml 360 ml Balance 360 ml 360 ml Intake Oral 360 ml 360 ml # Voids 1 Result Diagram: 12/06/17 0745 12/06/17 0745 Objective Remarks GENERAL: Well developed, well nourished male patient, INAD, A& Ox3. SKIN: Warm and dry, no rash. HEAD: Normocephalic. EYES: EOMI, No scleral icterus. No injection or drainage. ENT: No nasal discharge. Airway patient. MMM. NECK: Supple, trachea midline. CARDIOVASCULAR: Regular rate and rhythm without murmurs, gallops, or rubs. RESPIRATORY: Breath sounds equal bilaterally. Nonlabored. GASTROINTESTINAL: Abdomen soft, non-tender, nondistended. (+)BS. MUSCULOSKELETAL: No cyanosis, or edema. NEURO: Awake and alert. Able to move all extremities spontaneously. No focal neurological deficits. Normal speech. PSYCHIATRIC: Calm and pleasant. Cooperative. Medications and IVs Current Medications Medications (Trade) Dose Ordered Sig/Lucila Route Start Time Stop Time Status Last Admin (Norvasc) 10 mg DAILY PO 12/05/17 12:00 12/06/17 08:21 (Catapres) 0.1 mg BID PRN PO 12/05/17 12:00 (Hydrodiuril) 25 mg DAILY PO 12/05/17 12:00 12/06/17 08:20 (Zoloft) 150 mg DAILY PO 12/05/17 12:00 12/06/17 08:21 (Minipress) 5 mg HS PO 12/05/17 21:00 12/05/17 21:58 (Ativan) 1 mg Q6H PRN PO 12/05/17 12:00 (Ativan Inj) 1 mg Q6H PRN IM 12/05/17 12:00 (Tylenol) 650 mg Q4H PRN PO 12/05/17 12:00 (Milk Of Magnesia Liq) 30 ml DAILY PRN PO 12/05/17 12:00 (Mag-Al Plus Susp Liq) 30 ml Q6H PRN PO 12/05/17 12:00 (Habitrol 21 Mg Patch.24 Hr) 1 patch DAILY T-DERMAL 12/05/17 12:00 Miscellaneous Information 1 HS T-DERMAL 12/05/17 21:00 (Pill Splitter) 1 ea UNSCH PRN OTHER 12/05/17 13:00 A/P Problem List: (1) Bipolar 1 disorder, depressed, moderate ICD Code: F31.32 - Bipolar disorder, current episode depressed, moderate Status: Acute (2) Lactic acidosis ICD Code: E87.2 - Acidosis (3) Chronic post-traumatic stress disorder (PTSD) ICD Code: F43.12 - Post-traumatic stress disorder, chronic (4) Acute encephalopathy ICD Code: G93.40 - Encephalopathy, unspecified (5) Drug overdose, intentional ICD Code: T50.902A - Poisoning by unspecified drugs, medicaments and biological substances, intentional self-harm, initial encounter (6) HTN (hypertension) ICD Code: I10 - Essential (primary) hypertension Status: Acute Assessment and Plan 47yo AAM admitted to ICU for intubation and ventilation secondary to overdose of Ambien and Seroquel. Bipolar depression Suicide attempt Continue management under psychiatry. Prazosin 5mg started at bedtime for nightmares. TSH 1.020 Seroquel overdose Ambien overdose Patient has been extubated stable Hypertension Continue baseline treatment (amlodipine, hydrochlorothiazide) Monitor blood pressures As needed clonidine started at discharge from last hospitalization today and will be continued DVT prophylaxis Ambulatory Denise Lopez Dec 06, 2017 11:36
[2017-12-06 15:25] LABS: HEMOGLOBIN A1C 5.6 % (4.3-6.0)
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
[2017-12-06 18:21] VITALS: BP 128/75; PULSE 82; RESP 18; TEMP 98.8; O2SAT 97
[2017-12-06] MEDS: PRAZOSIN HCL 5 MG CAP PO SCH (20:40)
[2017-12-06] MEDS: REMOVE OLD NICODERM (NICOTINE) PATCH T-DERMAL SCH (20:40)
[2017-12-07 06:00] VITALS: BP 132/72; PULSE 92; RESP 17; TEMP 98.3; O2SAT 95
[2017-12-07] MEDS: SERTRALINE HCL 100 MG TAB PO SCH (08:18)
[2017-12-07] MEDS: HYDROCHLOROTHIAZIDE 25 MG TAB PO SCH (08:18)
[2017-12-07] MEDS: NICOTINE 21 MG/24 HR PATCH T-DERMAL SCH (09:00)
--- NOTE | 2017-12-07 09:36 | HHI.PYPN ---
Subjective Remarks Patient seen for follow, chart reviewed. Discussion nursing staff reported the patient now medically cleared but noted to have difficulty with sleep last evening and continues report feeling depressed. Patient was found sitting on hospital bed noted B dysphoric continues with depressed mood and continues with persistent suicidal ideations. Patient also mentions having had difficulty with sleep last evening. Patient states that he will try to attend groups during his admission. Patient denies any perceptional services or delusions at this time. Review of Systems Except as stated in HPI: all other systems reviewed are Neg Mental Status Examination Appearance: Appropriate Consciousness: Alert Orientation: x4 Motor Activity: Normal gait Speech: Unremarkable Language: Adequate Fund of Knowledge: Adequate Attention and Concentration: Adequate Memory: Unremarkable Mood: Sad Affect: Sad Thought Process & Associations: Intact Thought Content: Appropriate Hallucination Type: None Delusion Type: None Suicidal Ideation: Yes Suicidal Plan: No Suicidal Intention: Yes Homicidal Ideation: No Homicidal Plan: No Homicidal Intention: No Insight: Poor Judgment: Poor Results Vitals/IOs Vital Signs Date Time Temp Pulse Resp B/P (MAP) Pulse Ox O2 Delivery O2 Flow Rate FiO2 12/07/17 06:00 98.3 92 17 132/72 (92) 95 Intake and Output 12/07/17 12/07/17 12/08/17 08:00 16:00 00:00 Intake Total 0 ml 480 ml Balance 0 ml 480 ml Assessment & Plan Problem List: (1) Bipolar 1 disorder, depressed, moderate ICD Codes: F31.32 - Bipolar disorder, current episode depressed, moderate Status: Acute Assessment & Plan Patient this time continues to report depressed mood, continues to endorse suicide ideations at this time. Will continue sertraline at 50 mg p.o. daily for depression, we will start Ambien 10 mg p.o. at bedtime for sleep disturbance. We will continue to monitor mood and behavior. We will continue to titrate medications to which stabilization. Continue to encourage patient to participate in groups and activities while on the unit. Discharge planning in progress. Justification for Cont. Inpt. At risk for further decompensation if at lower level of care. Peewee Ahuja MD Dec 07, 2017 09:36
--- NOTE | 2017-12-07 12:43 | HHI.PR ---
Subjective Remarks Follow up on patient OD. Patient seen and examined. Patient continues to complain of mild cough and sore throat since being intubated. He also endorses dizziness with positional changes which he had intermittently prior to his hospitalization. He was taken down stairs for fresh air in a wheelchair secondary dizziness. He denies any headache or vision changes. Denies any fever chills. Denies any nausea, vomiting or abdominal pain. He denies any chest pain or shortness of breath. He reports he did not sleep well last night and is tired today. Objective Vitals Vital Signs Date Time Temp Pulse Resp B/P (MAP) Pulse Ox O2 Delivery O2 Flow Rate FiO2 12/07/17 06:00 98.3 92 17 132/72 (92) 95 12/06/17 18:21 98.8 82 18 128/75 (92) 97 I/O 12/06/17 12/06/17 12/06/17 12/07/17 12/07/17 12/07/17 07:00 15:00 23:00 07:00 15:00 23:00 Intake Total 720 ml 1920 ml 0 ml 480 ml Balance 720 ml 1920 ml 0 ml 480 ml Intake Oral 720 ml 1920 ml 0 ml 480 ml # Voids 3 0 Result Diagram: 12/06/17 0745 12/06/17 0745 Objective Remarks GENERAL: Well developed, well nourished male patient, INAD, A& Ox3. Lying awake in hospital bed. Appears comfortable. SKIN: Warm and dry, no rash. HEAD: Atraumatic. Normocephalic. EYES: EOMI, No scleral icterus. No injection or drainage. ENT: No nasal discharge. Airway patient. MMM. NECK: Supple, trachea midline. CARDIOVASCULAR: Regular rate and rhythm without murmurs, gallops, or rubs. RESPIRATORY: Breath sounds equal bilaterally. Nonlabored. GASTROINTESTINAL: Abdomen soft, non-tender, nondistended. (+)BS. MUSCULOSKELETAL: No cyanosis, or edema. NEURO: Awake and alert. Able to move all extremities spontaneously. No focal neurological deficits. Normal speech. PSYCHIATRIC: Calm and pleasant. Cooperative. Medications and IVs Current Medications Medications (Trade) Dose Ordered Sig/Lucila Route Start Time Stop Time Status Last Admin (Norvasc) 10 mg DAILY PO 4/11/18 12:00 12/07/17 08:19 (Catapres) 0.1 mg BID PRN PO 12/05/17 12:00 (Hydrodiuril) 25 mg DAILY PO 12/05/17 12:00 12/07/17 08:18 (Zoloft) 150 mg DAILY PO 12/05/17 12:00 12/07/17 08:18 (Minipress) 5 mg HS PO 12/05/17 21:00 12/06/17 20:40 (Ativan) 1 mg Q6H PRN PO 12/05/17 12:00 (Ativan Inj) 1 mg Q6H PRN IM 12/05/17 12:00 (Tylenol) 650 mg Q4H PRN PO 12/05/17 12:00 (Milk Of Magnesia Liq) 30 ml DAILY PRN PO 12/05/17 12:00 (Mag-Al Plus Susp Liq) 30 ml Q6H PRN PO 12/05/17 12:00 (Habitrol 21 Mg Patch.24 Hr) 1 patch DAILY T-DERMAL 12/05/17 12:00 Miscellaneous Information 1 HS T-DERMAL 12/05/17 21:00 (Pill Splitter) 1 ea UNSCH PRN OTHER 12/05/17 13:00 (Ambien) 10 mg HS PO 12/07/17 21:00 A/P Problem List: (1) Bipolar 1 disorder, depressed, moderate ICD Code: F31.32 - Bipolar disorder, current episode depressed, moderate Status: Acute (2) Lactic acidosis ICD Code: E87.2 - Acidosis (3) Chronic post-traumatic stress disorder (PTSD) ICD Code: F43.12 - Post-traumatic stress disorder, chronic (4) Acute encephalopathy ICD Code: G93.40 - Encephalopathy, unspecified (5) Drug overdose, intentional ICD Code: T50.902A - Poisoning by unspecified drugs, medicaments and biological substances, intentional self-harm, initial encounter (6) HTN (hypertension) ICD Code: I10 - Essential (primary) hypertension Status: Acute Assessment and Plan 47yo AAM admitted to ICU for intubation and ventilation secondary to overdose of Ambien and Seroquel. Bipolar depression Suicide attempt Continue management under psychiatry. Prazosin 5mg started at bedtime for nightmares. TSH 1.020 Seroquel overdose Ambien overdose Patient has been extubated stable Hypertension Continue baseline treatment (amlodipine, hydrochlorothiazide) Monitor blood pressures As needed clonidine started at discharge from last hospitalization today and will be continued Dizziness Possible orthostatic hypotension especially in light of recent addition of prazosin to medication regimen Orthostatic BP measurements ordered Fall precautions DVT prophylaxis Ambulatory Patient appears stable from hospitalist standpoint to be moved to regular inpatient psychiatric floor. Denise Lopez Dec 07, 2017 12:43
[2017-12-07 16:30] VITALS: BP_SYST 133; BP_SYST 135; BP_DIAS 80; BP_DIAS 84; PULSE 79; PULSE 81
[2017-12-07 16:32] VITALS: BP 126/75; PULSE 99
[2017-12-07 18:24] VITALS: BP 135/84; PULSE 79; RESP 16; TEMP 98.4; O2SAT 98
[2017-12-07] MEDS: REMOVE OLD NICODERM (NICOTINE) PATCH T-DERMAL SCH (21:00)
[2017-12-07] MEDS: ZOLPIDEM TARTRATE 10 MG TAB PO SCH (21:41)
[2017-12-07] MEDS: PRAZOSIN HCL 5 MG CAP PO SCH (21:41)
[2017-12-08 06:00] VITALS: BP 145/84; PULSE 90; RESP 18; TEMP 98.5; O2SAT 97
--- NOTE | 2017-12-08 09:47 | HHI.PYPN ---
Subjective Remarks The patient was seen today for psychiatric reevaluation. The patient has a brighter affect today. He reports feeling a little bit better, with improved mood, but still depressed and having frequent suicidal thoughts. Does not have a plan, he was able to contract for safety in the unit. Patient reports that he has been sleeping poorly, having nightmares, but he denies flashbacks. The patient is logical, he is coherent and relevant. He has been calm and cooperative in the unit. Taking his medications, no significant side effects reported. Review of Systems Except as stated in HPI: all other systems reviewed are Neg Mental Status Examination Appearance: Appropriate Consciousness: Alert Orientation: x4 Motor Activity: Normal gait Speech: Unremarkable Language: Adequate Fund of Knowledge: Adequate Attention and Concentration: Adequate Memory: Unremarkable Mood: Sad Affect: Sad Thought Process & Associations: Intact Thought Content: Appropriate Hallucination Type: None Delusion Type: None Suicidal Ideation: Yes Suicidal Plan: No Suicidal Intention: Yes Homicidal Ideation: No Homicidal Plan: No Homicidal Intention: No Insight: Poor Judgment: Poor Results Vitals/IOs Vital Signs Date Time Temp Pulse Resp B/P (MAP) Pulse Ox O2 Delivery O2 Flow Rate FiO2 12/08/17 06:00 98.5 90 18 145/84 (104) 97 Intake and Output 12/08/17 12/08/17 12/09/17 08:00 16:00 00:00 Intake Total 720 ml Balance 720 ml Assessment & Plan Problem List: (1) Bipolar 1 disorder, depressed, moderate ICD Codes: F31.32 - Bipolar disorder, current episode depressed, moderate Status: Acute Assessment & Plan: Patient continues to endorse depressive symptoms and suicidal ideation, he does not have a plan. She also reports difficulty sleeping at night. I will start the patient Seroquel 50 mg to help with the bipolar depression and insomnia. Will increase prazosin to 10 mg to help with nightmares. Assessment & Plan Estimated LOS: days Justification for Cont. Inpt. The patient is depressed, has suicidal ideation, he will continue psychiatric hospitalization for stabilization. Casey Pena MD Dec 08, 2017 09:47
--- NOTE | 2017-12-08 10:03 | HHI.PR ---
Subjective Remarks Follow up on patient OD. Patient seen and examined. Patient not sure if he is dizzy today because states he has not gotten up yet. Still with sore throat but improved. He denies any fever or chills. Denies any chest pain or dyspnea. Denies any N/V or abdominal pain. Discussed with nursing staff, no acute issues noted. Objective Vitals Vital Signs Date Time Temp Pulse Resp B/P (MAP) Pulse Ox O2 Delivery O2 Flow Rate FiO2 12/08/17 06:00 98.5 90 18 145/84 (104) 97 12/07/17 18:24 98.4 79 16 135/84 (101) 98 12/07/17 16:32 99 126/75 (92) 12/07/17 16:30 81 133/80 (97) 12/07/17 16:30 79 135/84 (101) I/O 12/07/17 12/07/17 12/07/17 12/08/17 12/08/17 12/08/17 07:00 15:00 23:00 07:00 15:00 23:00 Intake Total 0 ml 960 ml 1240 ml 840 ml 720 ml Balance 0 ml 960 ml 1240 ml 840 ml 720 ml Intake Oral 0 ml 960 ml 1240 ml 840 ml 720 ml # Voids 0 1 Result Diagram: 12/06/17 0745 12/06/17 0745 Objective Remarks GENERAL: Well developed, well nourished male patient, INAD, A& Ox3. Sitting up in bed eating breakfast. Appears comfortable. SKIN: Warm and dry, no rash. HEAD: Atraumatic. Normocephalic. EYES: EOMI, No scleral icterus. No injection or drainage. ENT: No nasal discharge. Airway patient. MMM. NECK: Supple, trachea midline. CARDIOVASCULAR: Regular rate and rhythm without murmurs, gallops, or rubs. RESPIRATORY: Breath sounds equal bilaterally. Nonlabored. GASTROINTESTINAL: Abdomen soft, non-tender, nondistended. (+)BS. MUSCULOSKELETAL: No cyanosis, or edema. NEURO: Awake and alert. Able to move all extremities spontaneously. No focal neurological deficits. Normal speech. PSYCHIATRIC: Calm and pleasant. Cooperative. Medications and IVs Current Medications Medications (Trade) Dose Ordered Sig/Lucila Route Start Time Stop Time Status Last Admin (Norvasc) 10 mg DAILY PO 12/05/17 12:00 12/07/17 08:19 (Catapres) 0.1 mg BID PRN PO 12/05/17 12:00 (Hydrodiuril) 25 mg DAILY PO 12/05/17 12:00 12/07/17 08:18 (Zoloft) 150 mg DAILY PO 12/05/17 12:00 12/07/17 08:18 (Ativan) 1 mg Q6H PRN PO 12/05/17 12:00 (Ativan Inj) 1 mg Q6H PRN IM 12/05/17 12:00 (Tylenol) 650 mg Q4H PRN PO 12/05/17 12:00 (Milk Of Magnesia Liq) 30 ml DAILY PRN PO 12/05/17 12:00 (Mag-Al Plus Susp Liq) 30 ml Q6H PRN PO 12/05/17 12:00 (Habitrol 21 Mg Patch.24 Hr) 1 patch DAILY T-DERMAL 12/05/17 12:00 Miscellaneous Information 1 HS T-DERMAL 12/05/17 21:00 (Pill Splitter) 1 ea UNSCH PRN OTHER 12/05/17 13:00 (Ambien) 10 mg HS PO 12/07/17 21:00 12/07/17 21:41 (Minipress) 10 mg HS PO 12/08/17 21:00 UNV (SEROquel) 50 mg HS PO 12/08/17 21:00 UNV A/P Problem List: (1) Bipolar 1 disorder, depressed, moderate ICD Code: F31.32 - Bipolar disorder, current episode depressed, moderate Status: Acute (2) Lactic acidosis ICD Code: E87.2 - Acidosis (3) Chronic post-traumatic stress disorder (PTSD) ICD Code: F43.12 - Post-traumatic stress disorder, chronic (4) Acute encephalopathy ICD Code: G93.40 - Encephalopathy, unspecified (5) Drug overdose, intentional ICD Code: T50.902A - Poisoning by unspecified drugs, medicaments and biological substances, intentional self-harm, initial encounter (6) HTN (hypertension) ICD Code: I10 - Essential (primary) hypertension Status: Acute Assessment and Plan 47yo AAM admitted to ICU for intubation and ventilation secondary to overdose of Ambien and Seroquel. Bipolar depression Suicide attempt Continue management under psychiatry. Prazosin 5mg started at bedtime for nightmares. TSH 1.020 Seroquel overdose Ambien overdose Patient has been extubated stable Hypertension Continue baseline treatment (amlodipine, hydrochlorothiazide) Monitor blood pressures As needed clonidine started at discharge from last hospitalization today and will be continued Dizziness Possible orthostatic hypotension especially in light of recent addition of prazosin to medication regimen Orthostatic BP measurements negative. Continue to monitor BP as Prazosin dose increased. Fall precautions DVT prophylaxis Ambulatory Discussed with patient, Justice ALVARADO, Dr. Pena Patient does not have any acute medical issues and can be discharged from hospitalist standpoint. [facility] will sign off. Please reconsult if needed. Denise Lopez Dec 08, 2017 10:03
[2017-12-08] MEDS: HYDROCHLOROTHIAZIDE 25 MG TAB PO SCH (10:45)
[2017-12-08] MEDS: SERTRALINE HCL 100 MG TAB PO SCH (10:46)
[2017-12-08] MEDS: NICOTINE 21 MG/24 HR PATCH T-DERMAL SCH (10:48)
[2017-12-08 17:22] VITALS: BP 135/86; PULSE 78; RESP 18; TEMP 97.8; O2SAT 96
[2017-12-08] MEDS ORDERED: QUEtiapine FUMARATE 25 MG TAB PO SCH (21:00)
[2017-12-08] MEDS: REMOVE OLD NICODERM (NICOTINE) PATCH T-DERMAL SCH (21:00)
[2017-12-08] MEDS: PRAZOSIN HCL 5 MG CAP PO SCH (21:34)
[2017-12-08] MEDS: ZOLPIDEM TARTRATE 10 MG TAB PO SCH (21:34)
[2017-12-09 06:10] VITALS: BP 130/69; PULSE 89; RESP 17; TEMP 98; O2SAT 99
[2017-12-09] MEDS: SERTRALINE HCL 100 MG TAB PO SCH (09:10)
[2017-12-09] MEDS: HYDROCHLOROTHIAZIDE 25 MG TAB PO SCH (09:11)
[2017-12-09] MEDS: ACETAMINOPHEN 325 MG TAB PO PRN (09:16)
[2017-12-09] MEDS: NICOTINE 21 MG/24 HR PATCH T-DERMAL SCH (09:17)
--- NOTE | 2017-12-09 12:53 | HHI.PYPN ---
Subjective Remarks The patient was seen today for psychiatric reevaluation. He reports that he feels slightly better. He has a better mood. He says that he is more focused in the future. Patient reports good response to psychotropics, no significant side effects. Last night he could not sleep about 4 hours. His appetite is improved, still having periodic flashback, but no so frequent suicidal thoughts. Patient is fully oriented 3, compliant with his medications. Review of Systems Except as stated in HPI: all other systems reviewed are Neg Mental Status Examination Appearance: Appropriate Consciousness: Alert Orientation: x4 Motor Activity: Normal gait Speech: Unremarkable Language: Adequate Fund of Knowledge: Adequate Attention and Concentration: Adequate Memory: Unremarkable Mood: Sad Affect: Sad Thought Process & Associations: Intact Thought Content: Appropriate Hallucination Type: None Delusion Type: None Suicidal Ideation: Yes Suicidal Plan: No Suicidal Intention: Yes Homicidal Ideation: No Homicidal Plan: No Homicidal Intention: No Insight: Poor Judgment: Poor Results Vitals/IOs Vital Signs Date Time Temp Pulse Resp B/P (MAP) Pulse Ox O2 Delivery O2 Flow Rate FiO2 12/09/17 06:10 98.0 89 17 130/69 (89) 99 Intake and Output 12/09/17 12/09/17 12/10/17 08:00 16:00 00:00 Intake Total 240 ml Balance 240 ml Assessment & Plan Problem List: (1) Bipolar 1 disorder, depressed, moderate ICD Codes: F31.32 - Bipolar disorder, current episode depressed, moderate Status: Acute Assessment & Plan: Will increase Seroquel to 100 mg at bedtime to help with depression and insomnia. Assessment & Plan Estimated LOS: days Justification for Cont. Inpt. Patient continues to be very depressed and with SI Casey Pena MD Dec 09, 2017 12:53
[2017-12-09 18:13] VITALS: BP 136/89; PULSE 72; RESP 16; TEMP 98.2; O2SAT 96
[2017-12-09] MEDS: PRAZOSIN HCL 5 MG CAP PO SCH (21:00)
[2017-12-09] MEDS: REMOVE OLD NICODERM (NICOTINE) PATCH T-DERMAL SCH (21:00)
[2017-12-09] MEDS: ZOLPIDEM TARTRATE 10 MG TAB PO SCH (22:03)
[2017-12-09] MEDS: QUEtiapine FUMARATE 100 MG TAB PO SCH (22:04)
[2017-12-10 05:09] VITALS: BP 117/70; PULSE 97; RESP 16; TEMP 98.2; O2SAT 94
[2017-12-10] MEDS: NICOTINE 21 MG/24 HR PATCH T-DERMAL SCH (09:00)
[2017-12-10] MEDS: SERTRALINE HCL 100 MG TAB PO SCH (09:09)
[2017-12-10] MEDS: HYDROCHLOROTHIAZIDE 25 MG TAB PO SCH (09:10)
--- NOTE | 2017-12-10 14:28 | PD.TTN ---
Patient Problems 1. Discharge planning 2. Medication compliance 3. Knowledge deficit 4. Lack of coping skills Progress Toward Goals Provider Present: Dr. Tamie Ahuja Provider Input: 12/10/2017; patient's medication are bieng adjusted to treat mood and depression Nurse(s) Present: RN Nurse(s) Input: 12/10/2017; patient is eating, and taking his medication, patient lacks motiviation and requires coaching with mood Psychiatric Counselors Present: GEORGI Norman Psych Therapist Input: 12/10/2017; counselor will review goals with patient, and encourage to participate with groups and activities Group Spec/RT/OT/HU Present: Jose Galdamez OT Group Spec/RT/OT/HU Input: 12/10/2017; patient refuses to attend groups Documentation Scribe: Myrna Hedrick Dec 10, 2017 14:28
--- NOTE | 2017-12-10 17:19 | HHI.PYPN ---
Subjective Remarks Patient seen for follow, chart reviewed. Discussion nursing staff reported the patient has been mostly in bed all day and refusing to go to groups. Patient was found lying hospital bed asleep was able to wake up to interact with interview today. Patient states that he is sleeping a little better, and mood is also has been "better". Patient states over the weekend he had attended some groups, but continues report feeling depressed but denying any suicide ideations today. Patient states he will try to go some groups today. Review of Systems Except as stated in HPI: all other systems reviewed are Neg Mental Status Examination Appearance: Appropriate Consciousness: Alert Orientation: x4 Motor Activity: Normal gait Speech: Unremarkable Language: Adequate Fund of Knowledge: Adequate Attention and Concentration: Adequate Memory: Unremarkable Mood: Sad Affect: Sad Thought Process & Associations: Intact Thought Content: Appropriate Hallucination Type: None Delusion Type: None Suicidal Ideation: Yes (Denies today) Suicidal Plan: No Suicidal Intention: No Homicidal Ideation: No Homicidal Plan: No Homicidal Intention: No Insight: Poor Judgment: Poor Results Vitals/IOs Vital Signs Date Time Temp Pulse Resp B/P (MAP) Pulse Ox O2 Delivery O2 Flow Rate FiO2 12/10/17 05:09 98.2 97 16 117/70 (86) 94 Intake and Output 12/10/17 12/10/17 12/11/17 08:00 16:00 00:00 Intake Total 120 ml 1080 ml Balance 120 ml 1080 ml Assessment & Plan Problem List: (1) Bipolar 1 disorder, depressed, moderate ICD Codes: F31.32 - Bipolar disorder, current episode depressed, moderate Status: Acute Assessment & Plan Patient this time continues to appear dysphoric and continues to endorse depressed mood but denying any suicide ideations today. Patient continues to have difficulty sleep but with current regimen stating that it is improving. We will increase sertraline to 200 mg p.o. daily for depression. Continue monitor mood and behavior. Continue to encourage patient to participate in groups and activities. Discharge planning in progress. Justification for Cont. Inpt. At risk for further decompensation if at lower level of care Peewee Ahuja MD Dec 10, 2017 17:19
[2017-12-10 18:00] VITALS: BP 136/91; PULSE 86; RESP 18; TEMP 97.4; O2SAT 97
[2017-12-10] MEDS: ZOLPIDEM TARTRATE 10 MG TAB PO SCH (20:36)
[2017-12-10] MEDS: PRAZOSIN HCL 5 MG CAP PO SCH (20:37)
[2017-12-10] MEDS: QUEtiapine FUMARATE 100 MG TAB PO SCH (20:38)
[2017-12-10] MEDS: REMOVE OLD NICODERM (NICOTINE) PATCH T-DERMAL SCH (21:00)
[2017-12-11 06:00] VITALS: BP 107/61; PULSE 90; RESP 18; TEMP 97.9; O2SAT 96
[2017-12-11] MEDS: NICOTINE 21 MG/24 HR PATCH T-DERMAL SCH (07:21)
[2017-12-11] MEDS: HYDROCHLOROTHIAZIDE 25 MG TAB PO SCH (09:00)
[2017-12-11] MEDS: SERTRALINE HCL 100 MG TAB PO SCH (09:00)
[2017-12-11 09:11] VITALS: BP 139/83; PULSE 77
--- NOTE | 2017-12-11 11:50 | HHI.PYPN ---
Subjective Remarks Patient seen for follow up, chart reviewed. Discussion nursing staff reported the patient noted to be less depressed, sleeping better. Patient was found asleep was able to wake up to interact with interview today. Patient states that sleeping slightly better, his mood has been also better denying any suicide ideations recently last time being so couple days ago, states that his appetite has been improving. Patient may consider where he will be going up on discharge, perhaps back to the hotel but is considering staying with a friend to have more support upon discharge. Review of Systems Except as stated in HPI: all other systems reviewed are Neg Mental Status Examination Appearance: Appropriate Consciousness: Alert Orientation: x4 Motor Activity: Normal gait Speech: Unremarkable Language: Adequate Fund of Knowledge: Adequate Attention and Concentration: Adequate Memory: Unremarkable Mood: Sad (Less so today) Affect: Sad (Less so today) Thought Process & Associations: Intact Thought Content: Appropriate Hallucination Type: None Delusion Type: None Suicidal Ideation: Yes (Denies today) Suicidal Plan: No Suicidal Intention: No Homicidal Ideation: No Homicidal Plan: No Homicidal Intention: No Insight: Poor Judgment: Poor Results Vitals/IOs Vital Signs Date Time Temp Pulse Resp B/P (MAP) Pulse Ox O2 Delivery O2 Flow Rate FiO2 12/11/17 09:11 77 139/83 (101) 12/11/17 06:00 97.9 18 96 Intake and Output 12/11/17 12/11/17 12/12/17 08:00 16:00 00:00 Intake Total 360 ml Balance 360 ml Assessment & Plan Problem List: (1) Bipolar 1 disorder, depressed, moderate ICD Codes: F31.32 - Bipolar disorder, current episode depressed, moderate Status: Acute Assessment & Plan Patient this time continue be noted to have some improvement in mood, denying suicide ideations but continues to appear dysphoric and not participating groups and activities despite encouragement. Patient continued to be at high risk for self-harm due to highly lethal suicide attempt which she survived that had led to this admission. Socially was recently increased to 200 mg p.o. daily we will continue with current treatment regimen but will consider adding adjunct if patient continues to have partial response to treatment. Discharge planning in progress. Justification for Cont. Inpt. At risk for further decompensation if at lower level of care Peewee Ahuja MD Dec 11, 2017 11:50
[2017-12-11 17:52] VITALS: BP 181/90; PULSE 77; RESP 18; TEMP 98.2; O2SAT 100
[2017-12-11] MEDS: ACETAMINOPHEN 325 MG TAB PO PRN (18:20)
[2017-12-11 18:25] VITALS: BP 143/86; PULSE 80
[2017-12-11] MEDS: ZOLPIDEM TARTRATE 10 MG TAB PO SCH (20:54)
[2017-12-11] MEDS: QUEtiapine FUMARATE 100 MG TAB PO SCH (20:55)
[2017-12-11] MEDS: PRAZOSIN HCL 5 MG CAP PO SCH (20:55)
[2017-12-11] MEDS: REMOVE OLD NICODERM (NICOTINE) PATCH T-DERMAL SCH (20:56)
[2017-12-12 05:34] VITALS: BP 120/73; PULSE 78; RESP 18; TEMP 98.2; O2SAT 95
[2017-12-12] MEDS: IBUPROFEN 600 MG TAB PO PRN ×2 (08:20→20:35)
[2017-12-12] MEDS: SERTRALINE HCL 100 MG TAB PO SCH (08:21)
[2017-12-12] MEDS: HYDROCHLOROTHIAZIDE 25 MG TAB PO SCH (08:21)
[2017-12-12] MEDS: NICOTINE 21 MG/24 HR PATCH T-DERMAL SCH (08:23)
--- NOTE | 2017-12-12 11:32 | HHI.PYPN ---
Subjective Remarks Patient seen for follow, chart reviewed. Discussion nursing staff reported the patient continue to be noted to be depressed, but noted to have had pain in the lower left extremity and noted to have some difficulty with ambulation due to the same. Patient was found dayroom watching television, noted, cooperative. Patient stated he sleeping better, and his mood also has been "better" with improving appetite she states is "coming back". Patient states he has been attempting to go to groups and be more engaged socially. Patient denies any suicide ideations time stating that eventually plans on going back to work with plans of perhaps staying with a friend for further support upon discharge. Review of Systems Except as stated in HPI: all other systems reviewed are Neg Mental Status Examination Appearance: Appropriate Consciousness: Alert Orientation: x4 Motor Activity: Normal gait Speech: Unremarkable Language: Adequate Fund of Knowledge: Adequate Attention and Concentration: Adequate Memory: Unremarkable Mood: Sad (Less so today), Other Affect: Sad (Less so today) Thought Process & Associations: Intact Thought Content: Appropriate Hallucination Type: None Delusion Type: None Suicidal Ideation: Yes (Denies today) Suicidal Plan: No Suicidal Intention: No Homicidal Ideation: No Homicidal Plan: No Homicidal Intention: No Insight: Poor Judgment: Poor Results Vitals/IOs Vital Signs Date Time Temp Pulse Resp B/P (MAP) Pulse Ox O2 Delivery O2 Flow Rate FiO2 12/12/17 05:34 98.2 78 18 120/73 (89) 95 Assessment & Plan Problem List: (1) Bipolar 1 disorder, depressed, moderate ICD Codes: F31.32 - Bipolar disorder, current episode depressed, moderate Status: Acute Assessment & Plan Patient this time denying any suicide ideations but continues to appear dysphoric. Patient is starting to participate in groups and activities and being less seclusive. Patient states but is improving. We will increase quetiapine to 150 mg p.o. at bedtime for depression. Continue rest of medications. We will request hospitalist consult for evaluation of recent report of pain and left lower extremity. Continue to monitor mood and behavior. Discharge planning in progress. Justification for Cont. Inpt. At risk for further decompensation if at lower level of care Peewee Ahuja MD Dec 12, 2017 11:32
[2017-12-12] MEDS: ACETAMINOPHEN 325 MG TAB PO PRN (14:58)
--- NOTE | 2017-12-12 15:03 | HHI.PR ---
Subjective Remarks Mr. Sharma is a 47-year-old male who was recently admitted to ICU due to respiratory failure and ventilated following overdose on Ambien and Seroquel. He was cleared medically and transferred to outpatient psychiatry unit. Medical team has been reconsulted for persistent/worsening left leg pain. Patient reports that pain began around Sunday or Sunday and states that it was ongoing since he was on the other floor. He reports that he especially noticed pain was worse when riding the elevator. States that pain is on side of left leg, worse with prolonged standing, alleviated with leg elevation. He reports taking Tylenol and ibuprofen in this relieves pain as well. He describes pain as throbbing and rates it 6/10, pain does not radiate. He denies any shortness of breath, chest pain, dizziness, lightheadedness, heart palpitations, fevers, chills, nausea, vomiting, diarrhea, or constipation. He denies any past history of blood clots to his knowledge. Objective Vitals Vital Signs Date Time Temp Pulse Resp B/P (MAP) Pulse Ox O2 Delivery O2 Flow Rate FiO2 12/12/17 05:34 98.2 78 18 120/73 (89) 95 12/11/17 18:25 80 143/86 (105) 12/11/17 17:52 98.2 77 18 181/90 (120) 100 I/O 12/11/17 12/11/17 12/11/17 12/12/17 12/12/17 12/12/17 07:00 15:00 23:00 07:00 15:00 23:00 Intake Total 360 ml 480 ml 240 ml Balance 360 ml 480 ml 240 ml Intake Oral 360 ml 480 ml 240 ml Imaging Last Impressions Lower Extremity Ultrasound 12/12/17 0000 Signed Impressions: Service Date/Time: Tuesday, December 12, 2017 14:00 - CONCLUSION: Left leg calf DVT. Odilon Aguilar MD Objective Remarks GENERAL: NAD, A&Ox3 SKIN: Warm and dry. HEAD: Normocephalic. NECK: Supple, trachea midline. EYES: Pupils equal round reactive. No scleral icterus. No injection or drainage. CARDIOVASCULAR: Regular rate and rhythm without murmurs, gallops, or rubs. RESPIRATORY: Breath sounds equal bilaterally. No accessory muscle use. GASTROINTESTINAL: Abdomen soft, non-tender, nondistended. Normoactive bowel sounds. MUSCULOSKELETAL: No cyanosis, or edema. Mid-left lateral calf tenderness reported with palpation. No warmth, redness, or edema noted. +bilateral pedal pulses, equal. Ambulating without assistive devices. NEURO: Awake and alert, oriented 3. No focal neurological deficitis. A/P Problem List: (1) Bipolar 1 disorder, depressed, moderate ICD Code: F31.32 - Bipolar disorder, current episode depressed, moderate Status: Acute (2) Lactic acidosis ICD Code: E87.2 - Acidosis (3) Chronic post-traumatic stress disorder (PTSD) ICD Code: F43.12 - Post-traumatic stress disorder, chronic (4) Acute encephalopathy ICD Code: G93.40 - Encephalopathy, unspecified (5) Drug overdose, intentional ICD Code: T50.902A - Poisoning by unspecified drugs, medicaments and biological substances, intentional self-harm, initial encounter (6) HTN (hypertension) ICD Code: I10 - Essential (primary) hypertension Status: Acute Assessment and Plan 47yo AAM admitted to ICU for intubation and ventilation secondary to overdose of Ambien and Seroquel. H reconsulted due to left calf pain. Bipolar depression Suicide attempt, OD on Seroquel and Ambien - Continue management under psychiatry. -Hemodynamically stable Hypertension, controlled - Continue baseline treatment (amlodipine, hydrochlorothiazide) - Monitor blood pressures -clonidine PRN Left calf pain Left calf DVT - LE US reviewed, clot noted in portions of peroneal vein in the mid calf. - Discussed with , patient was started on PO Xarelto 15mg BID - DVT likely secondary to ICU stay, decrease mobility while ventilated following respiratory failure after OD - PRN Tylenol for pain Discussed with nurse and patient prior to US results. Discussed with Benjamin Miller Dec 12, 2017 15:03
--- NOTE | 2017-12-12 15:25 | RADRPT ---
EXAM DATE/TIME: 12/12/2017 14:00 [facility] COMPARISON: No previous studies available for comparison. INDICATIONS : Bilateral leg pain. MEDICAL HISTORY : Hypertension. Gallbladder disease. Torn right rotator cuff. SURGICAL HISTORY : Cholecystectomy. ENCOUNTER: Initial ACUITY: 3 days PAIN SCORE: 8/10 LOCATION: Bilateral leg. TECHNIQUE: Venous ultrasound of the left and right leg was performed from the inguinal ligament to the proximal calf. Real-time, color Doppler and spectral tracing, compression and augmentation techniques were us ed. FINDINGS: RIGHT LEG: There is normal compressibility of the deep venous system from the inguinal region to the proximal ca lf. No echogenic clot is seen in the lumen of the common femoral, femoral, popliteal, and posterior tibial veins. There is a normal response of the venous system to proximal and distal augmentation an d respiration. LEFT LEG: There is normal compressibility of the deep venous system from the inguinal region to the proximal ca lf. No echogenic clot is seen in the lumen of the common femoral, femoral, popliteal, and posterior tibial veins. There is clot present portions of the peroneal vein in the mid calf.. CONCLUSION: Left leg calf DVT. Odilon Aguilar MD on December 12, 2017 at 15:22 Board Certified Radiologist. This report was verified electronically.
[2017-12-12 17:03] VITALS: BP 133/79; PULSE 66; RESP 18; TEMP 98.2; O2SAT 99
[2017-12-12] MEDS: ZOLPIDEM TARTRATE 10 MG TAB PO SCH (20:35)
[2017-12-12] MEDS: PRAZOSIN HCL 5 MG CAP PO SCH (20:35)
[2017-12-12] MEDS: QUEtiapine FUMARATE 100 MG TAB PO SCH (20:35)
[2017-12-12 21:00] VITALS: BP 141/88; PULSE 67; RESP 16; TEMP 98.4; O2SAT 100
[2017-12-12] MEDS: REMOVE OLD NICODERM (NICOTINE) PATCH T-DERMAL SCH (21:00)
[2017-12-12] MEDS: RIVAROXABAN 15 MG TAB PO SCH (21:33)
[2017-12-13 05:34] VITALS: BP 107/57; PULSE 74; RESP 18; TEMP 98.1; O2SAT 96
[2017-12-13] MEDS: NICOTINE 21 MG/24 HR PATCH T-DERMAL SCH (09:00)
[2017-12-13] MEDS: HYDROCHLOROTHIAZIDE 25 MG TAB PO SCH (09:10)
[2017-12-13] MEDS: RIVAROXABAN 15 MG TAB PO SCH ×2 (09:10→21:00)
[2017-12-13] MEDS: SERTRALINE HCL 100 MG TAB PO SCH (09:11)
--- NOTE | 2017-12-13 13:45 | HHI.PR ---
Subjective Remarks Follow-up visit for hypertension and left calf DVT. Patient seen and examined today in the day room. Discussed findings with patient as well as medications. Patient reports that his pain is well controlled on Tylenol and ibuprofen. He denies any fevers, chills, nausea, vomiting, diarrhea, dizziness, lightheadedness, chest pain, shortness of breath or cough. He also does not report any bleeding. Objective Vitals Vital Signs Date Time Temp Pulse Resp B/P (MAP) Pulse Ox O2 Delivery O2 Flow Rate FiO2 12/13/17 05:34 98.1 74 18 107/57 (74) 96 12/12/17 22:01 20 12/12/17 21:00 98.4 67 16 141/88 (105) 100 12/12/17 17:03 98.2 66 18 133/79 (97) 99 I/O 12/12/17 12/12/17 12/12/17 12/13/17 12/13/17 12/13/17 07:00 15:00 23:00 07:00 15:00 23:00 Intake Total 240 ml Balance 240 ml Intake Oral 240 ml Imaging Last Impressions Lower Extremity Ultrasound 12/12/17 0000 Signed Impressions: Service Date/Time: Tuesday, December 12, 2017 14:00 - CONCLUSION: Left leg calf DVT. Odilon Aguilar MD Objective Remarks GENERAL: NAD, A&Ox3 SKIN: Warm and dry. HEAD: Normocephalic. NECK: Supple, trachea midline. EYES: Pupils equal round reactive. No scleral icterus. No injection or drainage. CARDIOVASCULAR: Regular rate and rhythm without murmurs, gallops, or rubs. RESPIRATORY: Breath sounds equal bilaterally. No accessory muscle use. GASTROINTESTINAL: Abdomen soft, non-tender, nondistended. Normoactive bowel sounds. MUSCULOSKELETAL: No cyanosis, or edema. Mid-left lateral calf tenderness reported with palpation. No warmth, redness, or edema noted. +bilateral pedal pulses, equal. Ambulating without assistive devices. NEURO: Awake and alert, oriented 3. No focal neurological deficitis. A/P Problem List: (1) Bipolar 1 disorder, depressed, moderate ICD Code: F31.32 - Bipolar disorder, current episode depressed, moderate Status: Acute (2) Lactic acidosis ICD Code: E87.2 - Acidosis (3) Chronic post-traumatic stress disorder (PTSD) ICD Code: F43.12 - Post-traumatic stress disorder, chronic (4) Acute encephalopathy ICD Code: G93.40 - Encephalopathy, unspecified (5) Drug overdose, intentional ICD Code: T50.902A - Poisoning by unspecified drugs, medicaments and biological substances, intentional self-harm, initial encounter (6) HTN (hypertension) ICD Code: I10 - Essential (primary) hypertension Status: Acute Assessment and Plan 47yo AAM admitted to ICU for intubation and ventilation secondary to overdose of Ambien and Seroquel. [facility]HH reconsulted due to left calf pain. Bipolar depression Suicide attempt, OD on Seroquel and Ambien - Continue management under psychiatry. -Hemodynamically stable Hypertension, controlled - Continue baseline treatment (amlodipine, hydrochlorothiazide) - Monitor blood pressures - clonidine PRN Left calf pain Left calf DVT - LE US reviewed, clot noted in portions of peroneal vein in the mid calf. - DVT likely secondary to ICU stay, decrease mobility while ventilated following respiratory failure after OD - Xarelto 15mg BID X 21 days then 20mg daily. Discuss with patient Xarelto rx and [facility] was printed with date of first dose administered for 21 day course, will need [facility], he verbalized understanding. - PRN Tylenol for pain Discussed with nurse, patient, and Dr. Ahuja. Possible discharge tomorrow. Benjamin Samaniego Dec 13, 2017 13:45
--- NOTE | 2017-12-13 14:06 | HHI.PYPN ---
Subjective Remarks Patient seen for follow up; chart reviewed. Discussion with nursing staff reported that patient visible on the unit, attending groups, compliant with medications. Patient was seen today with counselor/therapist. He states that he is feeling "good" although reports having had a nightmare less evening which she has saw himself shooting himself with a gun and woke up scared. Patient states that his mood continues to be okay, feeling less depressed, denying any suicide ideations today, states his appetite is improving and has been attempting to be more visible on the unit and attend groups. Patient reports having had some difficulty sleeping last evening due to another patient cause a commotion on the unit last night. Discussion is about possible discharge tomorrow were reviewed with patient which she states he plans to return back to the [facility] and follow-up at [facility] for outpatient follow-up. Patient also was concerned with his new diagnosis of DVT of his left lower extremity and currently on Xarelto 50 mg p.o. twice daily which she will continue to take and follow up with his outpatient primary care doctor upon discharge. Review of Systems Except as stated in HPI: all other systems reviewed are Neg Mental Status Examination Appearance: Appropriate Consciousness: Alert Orientation: x4 Motor Activity: Normal gait Speech: Unremarkable Language: Adequate Fund of Knowledge: Adequate Attention and Concentration: Adequate Memory: Unremarkable Mood: Sad (Less so today), Other Affect: Sad (Less so today) Thought Process & Associations: Intact Thought Content: Appropriate Hallucination Type: None Delusion Type: None Suicidal Ideation: No Suicidal Plan: No Suicidal Intention: No Homicidal Ideation: No Homicidal Plan: No Homicidal Intention: No Insight: Poor Judgment: Poor Results Vitals/IOs Vital Signs Date Time Temp Pulse Resp B/P (MAP) Pulse Ox O2 Delivery O2 Flow Rate FiO2 12/13/17 05:34 98.1 74 18 107/57 (90) 96 Assessment & Plan Problem List: (1) Bipolar 1 disorder, depressed, moderate ICD Codes: F31.32 - Bipolar disorder, current episode depressed, moderate Status: Acute Assessment & Plan Patient this time was noted with improved mood, denying any suicide ideations at this time. Patient tolerated medications well. Patient will be started on Xarelto 50 mg p.o. twice daily for recent diagnosis of DVT of left lower extremity. Patient likely for discharge tomorrow and plan for [facility]. Treatment team discussed having patient treatment team at the [facility] provide more intensive supervision due to patient's chronic increased risk for self-harm due to previous suicide attempts. Continue current treatment. Continue monitor mood and behavior. Discharge planning in progress. Justification for Cont. Inpt. At risk of further decompensation at lower level of care. Peewee Ahuja MD Dec 13, 2017 14:06
--- NOTE | 2017-12-13 14:17 | PD.TTN ---
Patient Problems 1. Discharge planning 2. Medication compliance 3. Knowledge deficit 4. Lack of coping skills Progress Toward Goals Provider Present: Dr. Tamie Ahuja Provider Input: 12/12/17 - Patient is a high suicide risk. He signed voluntary and reports that he will return to a hotel when discharged. 12/10/2017; patient's medication are bieng adjusted to treat mood and depression Nurse(s) Present: RN Nurse(s) Input: 12/10/2017; patient is eating, and taking his medication, patient lacks motiviation and requires coaching with mood Psychiatric Counselors Present: Myrna Clemons [facility], ASHLEY Gamboa Psych Therapist Input: 12/12/17 - [facility] to [facility] follows this patient, given that he is a high risk for suicide. 12/10/2017; counselor will review goals with patient, and encourage to participate with groups and activities Group Spec/RT/OT/HU Present: Cayla Donis, MELINDA, Jose Galdamez, OT Group Spec/RT/OT/HU Input: 12/12/17 - Patient does not attend groups. 12/10/2017; patient refuses to attend groups Discharge Plan 12/12/17 - [facility]. Documentation Scribe: Myrna Clemons Date Resolved: Dec 13, 2017 Anastasiya Parada Dec 13, 2017 14:17
[2017-12-13] MEDS ORDERED: XARE15TA PO (14:20)
[2017-12-13] MEDS: ACETAMINOPHEN 325 MG TAB PO PRN (15:51)
[2017-12-13 17:59] VITALS: BP 154/55; PULSE 67; RESP 17; TEMP 97.9; O2SAT 100
[2017-12-13] MEDS: REMOVE OLD NICODERM (NICOTINE) PATCH T-DERMAL SCH (21:00)
[2017-12-13] MEDS: QUEtiapine FUMARATE 100 MG TAB PO SCH (21:23)
[2017-12-13] MEDS: ZOLPIDEM TARTRATE 10 MG TAB PO SCH (21:23)
[2017-12-13] MEDS: PRAZOSIN HCL 5 MG CAP PO SCH (21:24)
[2017-12-14 05:46] VITALS: BP 108/71; PULSE 80; RESP 16; TEMP 97.8; O2SAT 98
[2017-12-14] MEDS: NICOTINE 21 MG/24 HR PATCH T-DERMAL SCH (09:00)
[2017-12-14] MEDS: RIVAROXABAN 15 MG TAB PO SCH ×2 (09:56→22:07)
[2017-12-14] MEDS: IBUPROFEN 600 MG TAB PO PRN (09:56)
[2017-12-14] MEDS: SERTRALINE HCL 100 MG TAB PO SCH (09:57)
[2017-12-14] MEDS: PRAZOSIN HCL 5 MG CAP PO SCH ×2 (09:57→22:35)
[2017-12-14] MEDS: HYDROCHLOROTHIAZIDE 25 MG TAB PO SCH (10:18)
--- NOTE | 2017-12-14 13:52 | HHI.PR ---
Subjective Remarks Follow-up visit for DVT. Patient seen and examined in the day room. He reports ongoing left calf pain, states that the pain was bad over night. Rates pain 8-10 /10 at it's worst, throbbing, elevating extremity and pain medication will help alleviate pain, long periods of standing makes it worse. He denies any SOB, cough, chest pain, fevers, chills, nausea, vomiting, dizziness or lightheadedness. Objective Vitals Vital Signs Date Time Temp Pulse Resp B/P (MAP) Pulse Ox O2 Delivery O2 Flow Rate FiO2 12/14/17 11:00 14 12/14/17 05:46 97.8 80 16 108/71 (83) 98 12/13/17 17:59 97.9 67 17 154/55 (88) 100 Imaging Last Impressions Lower Extremity Ultrasound 12/12/17 0000 Signed Impressions: Service Date/Time: Tuesday, December 12, 2017 14:00 - CONCLUSION: Left leg calf DVT. Odilon Aguilar MD Objective Remarks GENERAL: NAD, A&Ox3 SKIN: Warm and dry. HEAD: Normocephalic. NECK: Supple, trachea midline. EYES: Pupils equal round reactive. No scleral icterus. No injection or drainage. CARDIOVASCULAR: Regular rate and rhythm without murmurs, gallops, or rubs. RESPIRATORY: Breath sounds equal bilaterally. No accessory muscle use. GASTROINTESTINAL: Abdomen soft, non-tender, nondistended. Normoactive bowel sounds. MUSCULOSKELETAL: No cyanosis, or edema. Mid-left lateral calf tenderness with palpation. No warmth, redness, or edema noted. +bilateral pedal pulses, equal. Ambulating without assistive devices. NEURO: Awake and alert, oriented 3. No focal neurological deficits. A/P Problem List: (1) Bipolar 1 disorder, depressed, moderate ICD Code: F31.32 - Bipolar disorder, current episode depressed, moderate Status: Acute (2) Lactic acidosis ICD Code: E87.2 - Acidosis (3) Chronic post-traumatic stress disorder (PTSD) ICD Code: F43.12 - Post-traumatic stress disorder, chronic (4) Acute encephalopathy ICD Code: G93.40 - Encephalopathy, unspecified (5) Drug overdose, intentional ICD Code: T50.902A - Poisoning by unspecified drugs, medicaments and biological substances, intentional self-harm, initial encounter (6) HTN (hypertension) ICD Code: I10 - Essential (primary) hypertension Status: Acute Assessment and Plan 47yo AAM admitted to ICU for intubation and ventilation secondary to overdose of Ambien and Seroquel. H reconsulted due to left calf pain. Bipolar depression Suicide attempt, OD on Seroquel and Ambien - Continue management under psychiatry. -Hemodynamically stable Hypertension, controlled - Continue baseline treatment (amlodipine, hydrochlorothiazide) - Monitor blood pressures - clonidine PRN Left calf pain Left calf DVT - LE US reviewed, clot noted in portions of peroneal vein in the mid calf. - DVT likely secondary to ICU stay, decrease mobility while ventilated following respiratory failure after OD - Xarelto 15mg BID X 21 days then 20mg daily. Discuss with patient Xarelto rx and [facility], verbalized understanding. - PRN Tylenol and Ibuprofen alternating for pain. - Will add Tramadol as well PRN for more severe pain Discussed with nurse and patient. Possible discharge on Sunday. Benjamin Samaniego Dec 14, 2017 13:52
--- NOTE | 2017-12-14 14:32 | HHI.PYPN ---
Subjective Remarks Patient seen for follow, chart reviewed. Discussion nursing staff reported the patient continued to report pain on lower left extremity due to recent DVT. Patient was found in day room noted B, cooperative. Patient noted to be slightly more dysphoric than usual stating that he is feeling slightly more depressed today due to his current diagnosis of DVT which is causing him much discomfort. He states that despite the pain is feeling it has improved his mood since his admission denies any current suicide ideations but continues to have vague plans as far as a support system upon leaving the hospital. Review of Systems Except as stated in HPI: all other systems reviewed are Neg Mental Status Examination Appearance: Appropriate Consciousness: Alert Orientation: x4 Motor Activity: Normal gait Speech: Unremarkable Language: Adequate Fund of Knowledge: Adequate Attention and Concentration: Adequate Memory: Unremarkable Mood: Sad (Less so today), Other Affect: Sad (Less so today) Thought Process & Associations: Intact Thought Content: Appropriate Hallucination Type: None Delusion Type: None Suicidal Ideation: No Suicidal Plan: No Suicidal Intention: No Homicidal Ideation: No Homicidal Plan: No Homicidal Intention: No Insight: Poor Judgment: Poor Results Vitals/IOs Vital Signs Date Time Temp Pulse Resp B/P (MAP) Pulse Ox O2 Delivery O2 Flow Rate FiO2 12/14/17 11:00 14 12/14/17 05:46 97.8 80 108/71 (83) 98 Assessment & Plan Problem List: (1) Bipolar 1 disorder, depressed, moderate ICD Codes: F31.32 - Bipolar disorder, current episode depressed, moderate Status: Acute Assessment & Plan Patient this time noted to have slightly more depressed mood today despite improvement in mood in general. Patient denies any suicide ideations continues to have limited to no social support out in the community and has plans to return back to the hotel upon discharge. Patient continues to be at high risk for self-harm due to previous suicide attempts and current psychosocial circumstances as well. Patient would benefit with more support upon discharge which he plans on engaging friends to be involved in his aftercare plan. Patient would benefit from a more cohesive discharge plan to decrease risk for self-harm upon discharge. Continue current treatment. Continue monitor mood and behavior. Discharge planning in progress. Justification for Cont. Inpt. At risk for further decompensation if at lower level of care Peewee Ahuja MD Dec 14, 2017 14:32
[2017-12-14 17:57] VITALS: BP 140/77; PULSE 70; RESP 17; TEMP 98.3; O2SAT 100
[2017-12-14] MEDS: REMOVE OLD NICODERM (NICOTINE) PATCH T-DERMAL SCH (21:00)
[2017-12-14] MEDS: ZOLPIDEM TARTRATE 10 MG TAB PO SCH (22:07)
[2017-12-14] MEDS: QUEtiapine FUMARATE 100 MG TAB PO SCH (22:07)
[2017-12-15 05:43] VITALS: BP 123/76; PULSE 77; RESP 16; TEMP 97.7; O2SAT 98
[2017-12-15] MEDS: HYDROCHLOROTHIAZIDE 25 MG TAB PO SCH (08:57)
[2017-12-15] MEDS: SERTRALINE HCL 100 MG TAB PO SCH (08:57)
[2017-12-15] MEDS: RIVAROXABAN 15 MG TAB PO SCH ×2 (08:58→22:07)
[2017-12-15] MEDS: NICOTINE 21 MG/24 HR PATCH T-DERMAL SCH (09:00)
--- NOTE | 2017-12-15 12:41 | HHI.PYPN ---
Subjective Remarks Patient was seen and case discussed with nursing. Patient is pleasant and cooperative with exam. Affect is constricted. Patient notes an improved mood is described as today as a 7 out of 10. Denies any nightmares or flashbacks. Denies suicidal or homicidal ideation intent or plan. Tolerating medications well Mental Status Examination Appearance: Appropriate Consciousness: Alert Orientation: x4 Motor Activity: Normal gait Speech: Unremarkable Language: Adequate Fund of Knowledge: Adequate Attention and Concentration: Adequate Memory: Unremarkable Mood: Sad (Less so today), Other Affect: Sad (Less so today) Thought Process & Associations: Intact Thought Content: Appropriate Hallucination Type: None Delusion Type: None Suicidal Ideation: No Suicidal Plan: No Suicidal Intention: No Homicidal Ideation: No Homicidal Plan: No Homicidal Intention: No Insight: Poor Judgment: Poor Results Vitals/IOs Vital Signs Date Time Temp Pulse Resp B/P (MAP) Pulse Ox O2 Delivery O2 Flow Rate FiO2 12/15/17 05:43 97.7 77 16 123/76 (92) 98 Intake and Output 12/15/17 12/15/17 12/16/17 08:00 16:00 00:00 Intake Total 480 ml Balance 480 ml Assessment & Plan Problem List: (1) Bipolar 1 disorder, depressed, moderate ICD Codes: F31.32 - Bipolar disorder, current episode depressed, moderate Status: Acute Assessment & Plan Continue current treatment plan Justification for Cont. Inpt. Patient would decompensate in a less restrictive setting Bryce Douglas DO Dec 15, 2017 12:41
--- NOTE | 2017-12-15 13:09 | HHI.PR ---
Subjective Remarks Follow-up visit for left DVT. Patient seen and examined in the day room. He reports that pain is much improved with pain medication. He denies any shortness of breath, cough, fevers, chills, nausea, vomiting, diarrhea or headaches. Spoke with nurse who does not voice any concerns today or overnight. Objective Vitals Vital Signs Date Time Temp Pulse Resp B/P (MAP) Pulse Ox O2 Delivery O2 Flow Rate FiO2 12/15/17 05:43 97.7 77 16 123/76 (92) 98 12/14/17 17:57 98.3 70 17 140/77 (98) 100 I/O 12/14/17 12/14/17 12/14/17 12/15/17 12/15/17 12/15/17 07:00 15:00 23:00 07:00 15:00 23:00 Intake Total 0 ml 480 ml Balance 0 ml 480 ml Intake Oral 0 ml 480 ml # Voids 1 Imaging Last Impressions Lower Extremity Ultrasound 12/12/17 0000 Signed Impressions: Service Date/Time: Tuesday, December 12, 2017 14:00 - CONCLUSION: Left leg calf DVT. Odilon Aguilar MD Objective Remarks GENERAL: NAD, A&Ox3 SKIN: Warm and dry. HEAD: Normocephalic. NECK: Supple, trachea midline. EYES: Pupils equal round reactive. No scleral icterus. No injection or drainage. CARDIOVASCULAR: Regular rate and rhythm without murmurs, gallops, or rubs. RESPIRATORY: Breath sounds equal bilaterally. No accessory muscle use. GASTROINTESTINAL: Abdomen soft, non-tender, nondistended. Normoactive bowel sounds. MUSCULOSKELETAL: No cyanosis, or edema. Left leg with no warmth, redness, or edema noted. +bilateral pedal pulses, equal. Ambulating without assistive devices. NEURO: Awake and alert, oriented 3. No focal neurological deficits. A/P Problem List: (1) Bipolar 1 disorder, depressed, moderate ICD Code: F31.32 - Bipolar disorder, current episode depressed, moderate Status: Acute (2) Lactic acidosis ICD Code: E87.2 - Acidosis (3) Chronic post-traumatic stress disorder (PTSD) ICD Code: F43.12 - Post-traumatic stress disorder, chronic (4) Acute encephalopathy ICD Code: G93.40 - Encephalopathy, unspecified (5) Drug overdose, intentional ICD Code: T50.902A - Poisoning by unspecified drugs, medicaments and biological substances, intentional self-harm, initial encounter (6) HTN (hypertension) ICD Code: I10 - Essential (primary) hypertension Status: Acute Assessment and Plan 47yo AAM admitted to ICU for intubation and ventilation secondary to overdose of Ambien and Seroquel. HHH reconsulted due to left calf pain. Bipolar depression Suicide attempt, OD on Seroquel and Ambien - Continue management under psychiatry. -Hemodynamically stable Hypertension, controlled - Continue baseline treatment (amlodipine, hydrochlorothiazide) - Monitor blood pressures - clonidine PRN Left calf pain Left calf DVT - LE US reviewed, clot noted in portions of peroneal vein in the mid calf. - DVT likely secondary to ICU stay, decrease mobility while ventilated following respiratory failure after OD - Xarelto 15mg BID X 21 days then 20mg daily. Discuss with patient Xarelto rx and [facility], verbalized understanding. - PRN Tylenol and Ibuprofen alternating for pain. -As needed tramadol added for severe pain, however noted that patient has not used this. Discussed with nurse and patient. Possible discharge on Sunday. Benjamin Samaniego Dec 15, 2017 13:09
[2017-12-15 18:28] VITALS: BP 134/94; PULSE 79; RESP 17; TEMP 98.2; O2SAT 100
[2017-12-15] MEDS: REMOVE OLD NICODERM (NICOTINE) PATCH T-DERMAL SCH (21:00)
[2017-12-15] MEDS: QUEtiapine FUMARATE 100 MG TAB PO SCH (22:07)
[2017-12-15] MEDS: PRAZOSIN HCL 5 MG CAP PO SCH (22:07)
[2017-12-15] MEDS: ZOLPIDEM TARTRATE 10 MG TAB PO SCH (22:08)
[2017-12-16 06:29] VITALS: BP 121/68; PULSE 77; RESP 16; TEMP 97.9; O2SAT 100
[2017-12-16] MEDS: HYDROCHLOROTHIAZIDE 25 MG TAB PO SCH (08:58)
[2017-12-16] MEDS: RIVAROXABAN 15 MG TAB PO SCH ×2 (08:58→21:28)
[2017-12-16] MEDS: SERTRALINE HCL 100 MG TAB PO SCH (08:58)
[2017-12-16] MEDS: NICOTINE 21 MG/24 HR PATCH T-DERMAL SCH (09:00)
[2017-12-16] MEDS: traMADol HCL 50 MG TAB PO PRN ×2 (10:52→21:31)
--- NOTE | 2017-12-16 11:51 | HHI.PYPN ---
Subjective Remarks Patient was seen and case discussed with nursing. Patient is pleasant and cooperative with exam. His social on the unit. Eating and sleeping well. Mood today is a 7 out of 10. No phone calls or visitors. Looking forward to a discharge early next week. Denies suicidal or homicidal ideation intent or plan. Tolerating medications well Mental Status Examination Appearance: Appropriate Consciousness: Alert Orientation: x4 Motor Activity: Normal gait Speech: Unremarkable Language: Adequate Fund of Knowledge: Adequate Attention and Concentration: Adequate Memory: Unremarkable Mood: Sad (Less so today), Other Affect: Sad (Less so today) Thought Process & Associations: Intact Thought Content: Appropriate Hallucination Type: None Delusion Type: None Suicidal Ideation: No Suicidal Plan: No Suicidal Intention: No Homicidal Ideation: No Homicidal Plan: No Homicidal Intention: No Insight: Poor Judgment: Poor Results Vitals/IOs Vital Signs Date Time Temp Pulse Resp B/P (MAP) Pulse Ox O2 Delivery O2 Flow Rate FiO2 12/16/17 06:29 97.9 77 16 121/68 (85) 100 Assessment & Plan Problem List: (1) Bipolar 1 disorder, depressed, moderate ICD Codes: F31.32 - Bipolar disorder, current episode depressed, moderate Status: Acute Assessment & Plan Continue current treatment plan Justification for Cont. Inpt. Patient would decompensate in a less restrictive setting Bryce Douglas DO Dec 16, 2017 11:51
--- NOTE | 2017-12-16 12:33 | HHI.PR ---
Subjective Remarks Follow-up visit for DVT. Patient seen and examined in day room in no acute distress. He denies any fevers, chills, nausea, vomiting, diarrhea, shortness of breath, cough, or bleeding. He reports that pain is relieved with pain medication, received a dose this morning. Voices no other acute concerns. Objective Vitals Vital Signs Date Time Temp Pulse Resp B/P (MAP) Pulse Ox O2 Delivery O2 Flow Rate FiO2 12/16/17 11:55 16 12/16/17 06:29 97.9 77 16 121/68 (85) 100 12/15/17 18:28 98.2 79 17 134/94 (107) 100 I/O 12/15/17 12/15/17 12/15/17 12/16/17 12/16/17 12/16/17 07:00 15:00 23:00 07:00 15:00 23:00 Intake Total 0 ml 480 ml 720 ml Balance 0 ml 480 ml 720 ml Intake Oral 0 ml 480 ml 720 ml # Voids 1 1 Imaging Last Impressions Lower Extremity Ultrasound 12/12/17 0000 Signed Impressions: Service Date/Time: Tuesday, December 12, 2017 14:00 - CONCLUSION: Left leg calf DVT. Odilon Aguilar MD Objective Remarks GENERAL: NAD, A&Ox3 SKIN: Warm and dry. HEAD: Normocephalic. NECK: Supple, trachea midline. EYES: Pupils equal round reactive. No scleral icterus. No injection or drainage. CARDIOVASCULAR: Regular rate and rhythm without murmurs, gallops, or rubs. RESPIRATORY: Breath sounds equal bilaterally. No accessory muscle use. GASTROINTESTINAL: Abdomen soft, non-tender, nondistended. Normoactive bowel sounds. MUSCULOSKELETAL: No cyanosis, or edema. Left leg with no warmth, redness, or edema noted. +bilateral pedal pulses, equal. Ambulating without assistive devices. NEURO: Awake and alert, oriented 3. No focal neurological deficits. A/P Problem List: (1) Bipolar 1 disorder, depressed, moderate ICD Code: F31.32 - Bipolar disorder, current episode depressed, moderate Status: Acute (2) Lactic acidosis ICD Code: E87.2 - Acidosis (3) Chronic post-traumatic stress disorder (PTSD) ICD Code: F43.12 - Post-traumatic stress disorder, chronic (4) Acute encephalopathy ICD Code: G93.40 - Encephalopathy, unspecified (5) Drug overdose, intentional ICD Code: T50.902A - Poisoning by unspecified drugs, medicaments and biological substances, intentional self-harm, initial encounter (6) HTN (hypertension) ICD Code: I10 - Essential (primary) hypertension Status: Acute Assessment and Plan 47yo AAM admitted to ICU for intubation and ventilation secondary to overdose of Ambien and Seroquel. H reconsulted due to left calf pain. Bipolar depression Suicide attempt, OD on Seroquel and Ambien - Continue management under psychiatry. -Hemodynamically stable Hypertension, controlled - Continue baseline treatment (amlodipine, hydrochlorothiazide) - Monitor blood pressures - clonidine PRN Left calf pain Left calf DVT - LE US reviewed, clot noted in portions of peroneal vein in the mid calf. - DVT likely secondary to ICU stay, decrease mobility while ventilated following respiratory failure after OD - Xarelto 15mg BID X 21 days then 20mg daily. Discuss with patient Xarelto rx and [facility], verbalized understanding. - PRN Tylenol and Ibuprofen alternating for pain. -Tramadol as needed pain, well controlled Discussed with nurse and patient. Possible discharge on Sunday. Benjamin Samaniego Dec 16, 2017 12:33
[2017-12-16 18:08] VITALS: BP 148/80; PULSE 73; RESP 16; TEMP 98; O2SAT 99
[2017-12-16] MEDS: REMOVE OLD NICODERM (NICOTINE) PATCH T-DERMAL SCH (21:00)
[2017-12-16] MEDS: PRAZOSIN HCL 5 MG CAP PO SCH (21:29)
[2017-12-16] MEDS: QUEtiapine FUMARATE 100 MG TAB PO SCH (21:30)
[2017-12-16] MEDS: ZOLPIDEM TARTRATE 10 MG TAB PO SCH (21:30)
[2017-12-17 06:14] VITALS: BP 120/72; PULSE 83; RESP 16; TEMP 97.9; O2SAT 95
[2017-12-17] MEDS: NICOTINE 21 MG/24 HR PATCH T-DERMAL SCH (09:00)
[2017-12-17] MEDS: HYDROCHLOROTHIAZIDE 25 MG TAB PO SCH (09:58)
[2017-12-17] MEDS: SERTRALINE HCL 100 MG TAB PO SCH (09:58)
[2017-12-17] MEDS: RIVAROXABAN 15 MG TAB PO SCH (09:58)
[2017-12-17] MEDS ORDERED: PRAZ5 PO (12:55)
[2017-12-17] MEDS ORDERED: QUET1TAB8 PO (12:55)
[2017-12-17] MEDS ORDERED: ZOLO100T PO (12:55)
[2017-12-17] MEDS ORDERED: AMBI10TA PO (12:55)
--- NOTE | 2017-12-17 13:02 | HHI.PR ---
Subjective Remarks Patient complains of left lower extremity pain with some swelling which is mild. He started Xarelto yesterday for left lower extremity DVT. No other complaints today. No shortness of breath. No chest pain. Objective Vital Signs Date Time Temp Pulse Resp B/P (MAP) Pulse Ox O2 Delivery O2 Flow Rate FiO2 12/17/17 06:14 97.9 83 16 120/72 (88) 95 12/16/17 18:08 98.0 73 16 148/80 (102) 99 I/O 12/16/17 12/16/17 12/16/17 12/17/17 12/17/17 12/17/17 07:00 15:00 23:00 07:00 15:00 23:00 Intake Total 720 ml 1680 ml Balance 720 ml 1680 ml Intake Oral 720 ml 1680 ml # Voids 1 4 Objective Remarks GENERAL: NAD, A&Ox3 HEAD: Normocephalic. NECK: Supple, trachea midline. No lymphadenopathy. EYES: No scleral icterus. No injection or drainage. CARDIOVASCULAR: Regular rate and rhythm without murmurs, gallops, or rubs. RESPIRATORY: Breath sounds equal bilaterally. No accessory muscle use. GASTROINTESTINAL: Abdomen soft, non-tender, nondistended. MUSCULOSKELETAL: No cyanosis, or edema. SKIN: Warm and dry. NEURO: No focal neurological deficitis. A/P Problem List: (1) Left leg DVT ICD Code: I82.402 - Acute embolism and thrombosis of unspecified deep veins of left lower extremity (2) Chronic post-traumatic stress disorder (PTSD) ICD Code: F43.12 - Post-traumatic stress disorder, chronic (3) Acute encephalopathy ICD Code: G93.40 - Encephalopathy, unspecified (4) Drug overdose, intentional ICD Code: T50.902A - Poisoning by unspecified drugs, medicaments and biological substances, intentional self-harm, initial encounter Assessment and Plan 47yo admitted to ICU for intubation and ventilation secondary to overdose of Ambien and Seroquel. Left lower extremity DVT discovered. Some pain remains in left lower extremity. Mild degree of swelling is present at left lower extremity. No other complaints from patient. No chest pain or shortness of breath. Continue Xarelto. Follow clinically. Bipolar depression Suicide attempt, OD on Seroquel and Ambien Management per psychiatry Hypertension controlled Continue amlodipine Continue hydrochlorothiazide Continue as needed clonidine Left calf pain Left calf DVT Continue Xarelto Follow symptoms clinically DVT prophylaxis Patient is on Xarelto Flex Rojas MD Dec 17, 2017 13:02
[2017-12-17] MEDS ORDERED: XARE15TA PO (15:22)
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
== END 2017-12-17 14:15 | disposition home or self-care (01) | DRG 885 ==
LOC: H4EA 11:48 → H260 12-10 18:26
PROVIDERS: ADMIT Student in an Organized Health Care Education/Training Program; ATTEND Student in an Organized Health Care Education/Training Program
DX: F31.32 Bipolar disorder, current episode depressed, moderate (principal); I82.4Z2 Acute embolism and thrombosis of unspecified deep veins of left distal lower extremity; I10 Essential (primary) hypertension; F60.9 Personality disorder, unspecified; F43.12 Post-traumatic stress disorder, chronic; F51.5 Nightmare disorder; R42 Dizziness and giddiness; J02.9 Acute pharyngitis, unspecified; Z62.810 Personal history of physical and sexual abuse in childhood; Z81.8 Family history of other mental and behavioral disorders; Z91.5 Personal history of self-harm
CPT/HCPCS: 80053; 80061; 83036; 85025; 93970

== ENCOUNTER 2018-05-08 16:28 | Inpatient (IN) ==
--- NOTE | 2018-05-08 16:50 | ED ---
HPI General Chief Complaint: Psychiatric Symptoms Stated Complaint: VCSO/Psych Eval Time Seen by Provider: 05/08/18 16:48 Source: patient Mode of arrival: ambulatory Limitations: no limitations History of Present Illness HPI Narrative: 48-year-old male with a history of PTSD, depression, and bipolar presents to the emergency room for evaluation of suicidal ideation. States he walked up to a bystander and admitted to suicidal ideation. Patient states he has been feeling this way for the past 2 days. No specific aggravating factor. States he has not been taking his medications as prescribed because it makes him feel foggy and he cannot do his work. Patient's plan is to take a bunch of pills and then go to a place where no one will find him. He denies any other medical problems. Denies homicidal ideation, hallucinations, delusions. Only other history of hypertension. MD complaint: suicidal ideation and feels depressed Onset (ago): day(s) Duration: constant History of same: Yes Relieving factors: none Exacerbating factors: none Context: not taking psychiatric medications Associated psychiatric symptoms: none Associated symptoms: denies other symptoms Treatments prior to arrival: placed on mental health hold If self harm: admits thoughts of self harm and has plan Related Data Home Medications Medication Instructions Recorded Confirmed Seroquel 200 mg PO HS 05/08/18 05/08/18 amlodipine 10 mg PO DAILY 05/08/18 05/08/18 hydrochlorothiazide 25 mg PO DAILY 05/08/18 05/08/18 prazosin 5 mg PO HS 05/08/18 05/08/18 rivaroxaban 20 mg PO HS 05/08/18 05/08/18 sertraline 100 mg PO 05/08/18 05/08/18 zolpidem 10 mg PO 05/08/18 05/08/18 Allergies Allergy/AdvReac Type Severity Reaction Status Date / Time No Known Allergies Allergy Uncoded 09/03/12 15:37 Review of Systems ROS: all other systems reviewed are negative [facility] Medical History Medical History Alcohol dependence (Acute) Bipolar disorder (Acute) Dyslipidemia (Acute) Hypertension (Acute) Suicide (Acute) Social History Social History Substance History: No History of Abuse Smoking Status: Never smoker How Often Do You Have a Drink Containing Alcohol: Monthly or less Recent Travel in [facility] within the Last 8 Weeks: No Recent Out of Country Travel within the Last 8 Weeks: No Exam Narrative Exam Narrative: GENERAL: Well-nourished, well-developed male in no acute distress. Afebrile. Ambulatory. SKIN: Focused skin assessment warm/dry. HEAD: Normocephalic. EYES: No scleral icterus. No injection or drainage. NECK: Supple, trachea midline. No JVD or lymphadenopathy. CARDIOVASCULAR: Regular rate and rhythm without murmurs, gallops, or rubs. RESPIRATORY: Breath sounds equal bilaterally. No accessory muscle use. PSYCHIATRIC: No delusional thought processes. No hallucinations. Normal affect and mood. [place] Head: normocephalic and atraumatic Nose: no nasal discharge and no epistaxis Mouth: moist mucous membranes Eyes Sclera: normal sclerae Pupils: PERRL Neck Neck: trachea midline and no JVD Resp Effort & Inspection: no use of accessory muscles Auscultation: clear to auscultation bilaterally Cardio Rate: regular rate Rhythm: regular rhythm Heart Sounds: no murmurs GI Inspection: non-distended Palpation: soft, no hepatosplenomegaly and nontender Skin General: dry skin (warm) Neuro General: alert and awake Cranial Nerves: other Speech: speech normal Motor: no movement abnormalities noted Extrem General: normal to inspection, no clubbing, no cyanosis and no edema Psych Mood: congruent mood Affect: normal affect Judgment: judgment good Course Initial Documented Vital Signs Temperature 98.7 F 05/08/18 16:39 Pulse Rate 65 05/08/18 16:39 Respiratory Rate 18 05/08/18 16:39 Blood Pressure 158/97 H 05/08/18 16:39 Pulse Oximetry 100 05/08/18 16:39 Last Documented Vital Signs Temperature 98.3 F 05/09/18 05:38 Pulse Rate 78 05/09/18 05:38 Respiratory Rate 18 05/09/18 05:38 Blood Pressure 139/86 05/09/18 05:38 Pulse Oximetry 100 05/09/18 05:38 Medical Decision Making [facility] Narrative Medical decision making narrative: 48-year-old male presents to the emergency room under a Pedraza act initiated by police department. Patient flagged down a bystander and admitted to thoughts of suicide. Denies any reason for worsening of symptoms. Has history of the same. States he plans to overdose. He denies any physical complaints. Vital signs stable. Labs are unremarkable. Patient is medically cleared for psychiatric evaluation. Medical Screen Exam Complete: Yes Emergency Medical Condition: Yes Differential Diagnosis Differential Diagnosis: Bipolar disorder, suicidal ideation, polysubstance abuse , adjustment disorder Lab Data Result diagrams: 05/08/18 16:51 05/08/18 16:51 Lab Results 05/08/18 05/08/18 05/08/18 Range/Units 16:51 16:51 23:53 WBC 5.9 (4.0-11.0) th/mm3 RBC 4.88 (4.50-5.90) mil/mm3 Hgb 14.3 (13.0-17.0) gm/dL Hct 42.7 (39.0-51.0) % MCV 87.4 (80.0-100.0) fL MCH 29.3 (27.0-34.0) pg MCHC 33.5 (32.0-36.0) % RDW 14.7 (11.6-17.2) % Plt Count 219 (150-450) th/mm3 MPV 8.5 (7.0-11.0) fL Neut % (Auto) 57.8 (16.0-70.0) % Lymph % (Auto) 31.3 (9.0-44.0) % [place] % (Auto) 6.9 (0.0-8.0) % Eos % (Auto) 3.4 (0.0-4.0) % Baso % (Auto) 0.6 (0.0-2.0) % Neut # (Auto) 3.4 (1.8-7.7) th/mm3 Lymph # (Auto) 1.8 (1.0-4.8) th/mm3 [place] # (Auto) 0.4 (0.0-0.9) th/mm3 Eos # (Auto) 0.2 (0.0-0.4) th/mm3 Baso # (Auto) 0.0 (0.0-0.2) th/mm3 WBC Differential . Differential Comment Auto diff final Sodium 138 (136-145) meq/L Potassium 3.5 (3.5-5.1) meq/L Chloride 100 (98-107) meq/L Carbon Dioxide 29.0 (21.0-32.0) meq/L Anion Gap 9 (5-15) meq/L BUN 12 (7-18) mg/dL Creatinine 1.29 (0.60-1.30) mg/dL Estimated GFR 72 L (>89) mL/min Random Glucose 113 H (74-106) mg/dL Calcium 8.5 (8.5-10.1) mg/dL Total Bilirubin 0.7 (0.2-1.0) mg/dL AST 18 (15-37) U/L ALT 21 (12-78) U/L Alkaline Phosphatase 63 (45-117) U/L Total Protein 8.1 (6.4-8.2) g/dL Albumin 4.1 (3.4-5.0) g/dL TSH 0.973 (0.358-3.740) uIU/mL Urine Opiates Screen Neg (Neg) Ur Barbiturates Screen Neg (Neg) Ur Amphetamines Screen Neg (Neg) U Benzodiazepines Scrn Neg (Neg) Urine Cocaine Screen Neg (Neg) U Cannabinoids Screen Neg (Neg) Serum Alcohol Less than 3 (0-5) mg/dL Discharge Plan Discharge Disposition Patient Disposition: 30 Still Patient Discharge Condition Condition: Stable Physicians Team ED Provider: Brandee Pedraza ED Midlevel Provider: Deanne Zuniga Primary Care Provider: UNKNOWN, Rxs /Orders / Referrals /Forms Prescriptions: No Action Seroquel 200 mg PO HS RF: 0 sertraline 100 mg PO HS RF: 0 amlodipine 10 mg PO DAILY RF: 0 hydrochlorothiazide 25 mg PO DAILY RF: 0 rivaroxaban 20 mg PO HS RF: 0 prazosin 5 mg PO HS RF: 0 zolpidem 10 mg PO HS RF: 0 Status ED Status: Medically Cleared
[2018-05-08 17:28] LABS: Baso % (Auto) 0.6 % (0.0-2.0); Eos # (Auto) 0.2 th/mm3 (0.0-0.4); Eos % (Auto) 3.4 % (0.0-4.0); Hematocrit 42.7 % (39.0-51.0); Hemoglobin 14.3 gm/dL (13.0-17.0); Lymph # (Auto) 1.8 th/mm3 (1.0-4.8); Lymph % (Auto) 31.3 % (9.0-44.0); Mean Corpuscular HGB Conc 33.5 % (32.0-36.0); Mean Corpuscular Hemoglobin 29.3 pg (27.0-34.0); Mean Corpuscular Volume 87.4 fL (80.0-100.0); Mean Platelet Volume 8.5 fL (7.0-11.0); Mono # (Auto) 0.4 th/mm3 (0.0-0.9); Mono % (Auto) 6.9 % (0.0-8.0); Neut # (Auto) 3.4 th/mm3 (1.8-7.7); Neut % (Auto) 57.8 % (16.0-70.0); Platelet Count 219 th/mm3 (150-450); Red Blood Count 4.88 mil/mm3 (4.50-5.90); Red Cell Distribution Width 14.7 % (11.6-17.2); White Blood Count 5.9 th/mm3 (4.0-11.0)
[2018-05-08 17:44] LABS: Albumin 4.1 g/dL (3.4-5.0); Anion Gap 9 meq/L (5-15); Aspartate Aminotransferase 18 U/L (15-37); Blood Urea Nitrogen 12 mg/dL (7-18); Calcium 8.5 mg/dL (8.5-10.1); Chloride 100 meq/L (98-107); Glomerular Filtration Rate 72 mL/min (>89); Glucose,Random 113 mg/dL (74-106); Potassium 3.5 meq/L (3.5-5.1); Sodium 138 meq/L (136-145)
[2018-05-08 17:45] LABS: Alanine Aminotransferase 21 U/L (12-78)
[2018-05-08 17:55] LABS: Alkaline Phosphatase 63 U/L (45-117); Thyroid Stimulating Hormone 0.973 uIU/mL (0.358-3.740); Total Protein 8.1 g/dL (6.4-8.2)
[2018-05-09 00:18] LABS: Amphetamine Screen,Urine Neg (Neg); Cannabinoid Screen,Urine Neg (Neg); Cocaine Screen,Urine Neg (Neg)
[2018-05-09 00:19] LABS: Opiate Screen,Urine Neg (Neg)
[2018-05-09 00:22] LABS: Barbiturate Screen,Urine Neg (Neg)
[2018-05-09] MEDS ORDERED: Bisacodyl 10 MG Supp RECTAL PRN (09:18)
[2018-05-09] MEDS ORDERED: Aluminum/Magnesium/Simethacone Susp 30 ML UDC PO PRN (09:18)
[2018-05-09] MEDS: amLODIPine 10 MG Tablet PO SCH (10:41)
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
[2018-05-09] MEDS: Senna/Docusate Sodium 8.6/50 MG Tablet PO SCH (22:08)
[2018-05-09] MEDS: Sertraline 100 MG Tablet PO SCH (22:08)
[2018-05-10] MEDS ORDERED: Haloperidol Inj 5 MG/ML Ampul ONE (05:04)
[2018-05-10] MEDS ORDERED: Haloperidol Inj 5 MG/ML Ampul IM ONE (05:15)
--- NOTE | 2018-05-10 06:04 | XR ---
EXAM DATE: 05/10/2018 6:00 AM EDT AGE/SEX: 48 years / Male INDICATIONS: Trauma to hand due to punching a wall. CLINICAL DATA: This is the patient's initial encounter. Patient reports that signs and symptoms have been present for 1 day and indicates a pain score of 0/10. MEDICAL/SURGICAL HISTORY: . Cardiovascular disease. Hypertension. Cholecystectomy. COMPARISON: No prior exams available for comparison. FINDINGS: Bony structures are intact and in normal alignment. Osseous density is normal. Soft tissues are unre markable. No radiopaque foreign bodies seen. CONCLUSION: 1. No acute fracture. Electronically signed by: Agustin Coppola MD 05/10/2018 6:03 AM EDT
--- NOTE | 2018-05-10 06:05 | XR ---
EXAM DATE: 05/10/2018 6:01 AM EDT AGE/SEX: 48 years / Male INDICATIONS: Trauma to hand due to punching a wall. CLINICAL DATA: This is the patient's initial encounter. Patient reports that signs and symptoms have been present for 1 day and indicates a pain score of 0/10. MEDICAL/SURGICAL HISTORY: . Cardiovascular disease. Hypertension. Cholecystectomy. COMPARISON: No prior exams available for comparison. FINDINGS: Bony structures are intact and in normal alignment. Osseous density is normal. Soft tissues are unre markable. No radiopaque foreign bodies seen. CONCLUSION: 1. No acute fracture. Electronically signed by: Agustin Coppola MD 05/10/2018 6:04 AM EDT
[2018-05-10] MEDS: amLODIPine 10 MG Tablet PO SCH (08:50)
[2018-05-10] MEDS: Senna/Docusate Sodium 8.6/50 MG Tablet PO SCH ×2 (10:07→22:13)
[2018-05-10] MEDS ORDERED: Acetaminophen 325 MG Tablet PO PRN (15:45)
[2018-05-10] MEDS ORDERED: Aluminum/Magnesium/Simethacone Susp 30 ML UDC PO PRN (15:45)
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
[2018-05-10] MEDS: Sertraline 100 MG Tablet PO SCH (22:14)
--- NOTE | 2018-05-11 09:08 | P.CONIM ---
History of Present Illness Consult date: 05/11/18 Reason for Consult: Medical management Primary Care Provider: UNKNOWN History of Present Illness: 48 year old male with HTN, history of LLE DVT (provoked from hospitalization), PTSD, MDD, and anxiety admitted to psych for suicidal ideations. Hospitalist consulted for medical management. The patient is seen at the bedside. He states aside from his current psychiatric state he has no other medical complaints. He denies chest pain, shortness of breath, swelling, pain in his legs, abdominal pain, or rash. He reports he takes two medications for his HTN, amlodipine and HCTZ. He reports he was on Xarelto for a few months after having a DVT during an inpatient stay back in November. Since then he has completed treatment and [facility]. He denies any alcohol, tobacco, or drug use. Review of Systems All other systems reviewed negative except as stated in HPI PMFSH - History History Provided By: Patient - Medical History Medical History: Medical History (Last Updated 05/11/18 @ 09:36 by Damaris Reece MD) Adjustment disorder Anxiety Depression H/O suicide attempt Hypertension PTSD (post-traumatic stress disorder) - Surgical History Surgical History: Surgical History (Last Reviewed 05/11/18 @ 09:35 by Damaris Reece MD) Hx of cholecystectomy - Family History Family History: Family History (Last Updated 05/11/18 @ 09:36 by Damaris Reece MD) Other Family history normal - Social History I have reviewed the patient's Social History: Yes - Tobacco History Second Hand Smoke Exposure: No Tobacco Use In Past 30 Days: No Smoking Status: Never smoker - Alcohol History How Often Do You Have a Drink Containing Alcohol: Monthly or less - Substance Use History Substance History: No History of Abuse - Travel History Recent Travel in the [place] Within the Last 8 Weeks: No Recent Travel Out of the Country Within the Last 8 Weeks: No - Immunization History Tetanus Immunization: <5 Years Hx Influenza Vaccine This Season: No Medications and Allergies Active Medications: Active Medications Acetaminophen (Tylenol) 650 mg PO Q4H PRN PRN Reason: Pain 1-5 or Temp >101F Al Hydrox/Mg Hydrox/Simethicone (Mag-Al Plus Susp Liq) 30 ml PO Q6H PRN PRN Reason: DYSPEPSIA Al Hydroxide/Mg Hydroxide (Milk Of Magnesia Liq) 30 ml PO Q12H PRN PRN Reason: Mild Constipation Amlodipine Besylate (Norvasc) 10 mg PO DAILY [facility] Last Admin: 05/10/18 08:50 Dose: 10 mg Bisacodyl (Dulcolax Supp) 10 mg RECTAL DAILY PRN PRN Reason: SEVERE CONSITIPATION Hydroxyzine HCl (Atarax) 50 mg PO Q6H PRN PRN Reason: ANXIETY Lactulose (Lactulose Liq) 30 ml PO DAILY PRN PRN Reason: SEVERE CONSITIPATION Prazosin HCl (Minipress) 5 mg PO [facility] Last Admin: 05/10/18 22:13 Dose: 5 mg Quetiapine Fumarate (Seroquel) 200 mg PO [facility] Last Admin: 05/10/18 22:14 Dose: 200 mg Senna/Docusate Sodium (Carmina-Colace) 1 tab PO BID [facility] Last Admin: 05/10/18 22:13 Dose: Not Given Sennosides (Senokot) 17.2 mg PO Q12H PRN PRN Reason: Moderate Constipation Sertraline HCl (Zoloft) 100 mg PO [facility] Last Admin: 05/10/18 22:14 Dose: 100 mg Zolpidem Tartrate (Ambien) 10 mg PO [facility] Last Admin: 05/10/18 22:14 Dose: Not Given Allergies Allergy/AdvReac Type Severity Reaction Status Date / Time No Known Allergies Allergy Uncoded 09/03/12 15:37 Home Medications Medication Instructions Recorded Confirmed Type Seroquel 200 mg PO 05/08/18 05/08/18 History amlodipine 10 mg PO DAILY 05/08/18 05/08/18 History hydrochlorothiazide 25 mg PO DAILY 05/08/18 05/08/18 History prazosin 5 mg PO 05/08/18 05/08/18 History rivaroxaban 20 mg PO HS 05/08/18 05/08/18 History sertraline 100 mg PO HS 05/08/18 05/08/18 History zolpidem 10 mg PO 05/08/18 05/08/18 History Exam Vital signs: Vital Signs 05/10/18 17:45 05/11/18 06:00 Temperature 97.2 F L 97.2 F L Pulse Rate 94 H 80 Respiratory Rate 18 17 Blood Pressure 131/78 125/63 Pulse Oximetry 98 100 Narrative: GENERAL: WN, WD cooperative AA male sitting up in bed in NAD. SKIN: Warm and dry. HEENT: AT/NC. Pupils equal and round. MMM. HEART: RRR no m/r/g. LUNGS: CTAB without wheezes or crackles. ABDOMEN: +BS, soft, NT, ND. EXTREMITIES: No LE edema. NEURO: Awake and alert. Results - Labs CBC & Chem 7: 05/08/18 16:51 05/08/18 16:51 Assessment and Plan - Assessment (1) Suicidal ideations Code(s): R45.851 - Suicidal ideations Status: Acute (2) Adjustment disorder Code(s): F43.20 - Adjustment disorder, unspecified Status: Acute (3) Hypertension Code(s): I10 - Essential (primary) hypertension Status: Chronic - Plan 48 year old male with HTN, history of LLE DVT (provoked from hospitalization), PTSD, MDD, and anxiety admitted to psych for suicidal ideations. Hospitalist consulted for medical management. 1. Suicidal ideations, depression - Management per psych 2. HTN - Appears to be well-controlled - Continue amlodipine and HCTZ - Monitor and adjust as needed 3. History of provoke LLE DVT - S/p treatment with Xarelto, no further anticoagulation needed DVT prophylaxis: ambulatory Code Status: Full Discussed Condition With: The patient Discharge Planning: Per primary team, medically clear
[2018-05-11] MEDS: Senna/Docusate Sodium 8.6/50 MG Tablet PO SCH ×2 (09:24→21:04)
[2018-05-11] MEDS: amLODIPine 10 MG Tablet PO SCH (09:24)
--- NOTE | 2018-05-11 12:33 | P.PNPSY ---
Subjective Remarks: Reviewed electronic medical records and discussed case with staff. Follow-up was conducted in patient's room with surya Dumontor present. Patient reports that his sleep has been "getting better". States that his appetite is been up and down, and his mood has "not been a good one". Reports that he gets agitated and angry easily when he is out in the milieu. Staff reports he has been compliant with medications. Denies any side effects from medication. Mental Status Examination Appearance: Appropriate Consciousness: Alert Orientation: x4 Motor Activity: Normal gait Speech: Unremarkable Language: Adequate Fund of Knowledge: Adequate Attention and Concentration: Adequate Memory: Unremarkable Mood: Sad Affect: Sad Thought Process & Associations: Intact Thought Content: Appropriate Hallucination Type: None Delusion Type: None Suicidal Ideation: Yes Suicidal Plan: No Suicidal Intention: No Homicidal Ideation: No Homicidal Plan: No Homicidal Intention: No Insight: Poor Judgment: Poor Assessment and Plan - Assessment (1) Bipolar depression Code(s): F31.30 - Bipolar disorder, current episode depressed, mild or moderate severity, unspecified Status: Acute - Plan Plan: Patient will be reevaluated Sunday by the attending psychiatrist. Continue with current treatment plan. Justification for Continued Inpatient Stay: Moving this patient to a less restrictive environment would likely result in decompensation. Request Healthcare Surrogate/Guardian Advocate?: No
[2018-05-11 13:15] LABS: Hemoglobin A1c 5.9 % (4.3-6.0)
[2018-05-11] MEDS: Sertraline 100 MG Tablet PO SCH (21:03)
[2018-05-12] MEDS: hydroCHLOROthiazide 25 MG Tablet PO SCH (08:32)
[2018-05-12] MEDS: amLODIPine 10 MG Tablet PO SCH (08:33)
[2018-05-12] MEDS: Senna/Docusate Sodium 8.6/50 MG Tablet PO SCH ×2 (08:33→23:32)
--- NOTE | 2018-05-12 11:40 | P.PNPSY ---
Subjective Chief Complaint: Bipolar Depression, PTSD Remarks: Reviewed electronic medical records and discussed case with staff. Follow-up was conducted in the day room with MERYL Solo. Patient states that he is starting to feel better. Per report he punched a wall yesterday, but has had no behavior concerns since he was relocated from 2600 to 2700. He feels that his nightmares are under control with his Prazosin. He states he does get restless at night and sometimes has difficulty sleeping throughout the night. Denies any suicidal ideations at this time. Review of Systems All other systems reviewed negative except as stated in HPI Mental Status Examination Appearance: Appropriate Consciousness: Alert Orientation: x4 Motor Activity: Normal gait Speech: Unremarkable Language: Adequate Fund of Knowledge: Adequate Attention and Concentration: Adequate Memory: Unremarkable Mood: Sad Affect: Sad Thought Process & Associations: Intact Thought Content: Appropriate Hallucination Type: None Delusion Type: None Suicidal Ideation: No Suicidal Plan: No Suicidal Intention: No Homicidal Ideation: No Homicidal Plan: No Homicidal Intention: No Insight: Fair Judgment: Impulsive Assessment and Plan - Assessment (1) Bipolar depression Code(s): F31.30 - Bipolar disorder, current episode depressed, mild or moderate severity, unspecified Status: Acute (2) PTSD (post-traumatic stress disorder) Code(s): F43.10 - Post-traumatic stress disorder, unspecified Status: Acute - Plan Plan: Patient will be reevaluated Sunday by the attending psychiatrist. Continue with current treatment plan. Justification for Continued Inpatient Stay: Moving patient to a less restrictive environment may result in his decompensation. Request Healthcare Surrogate/Guardian Advocate?: No
--- NOTE | 2018-05-12 11:47 | P.PNIM ---
Subjective Interval history: Pt seen and examined. Feels well. No complaints. BP stable. Physical Exam Vital signs: Vital Signs 05/11/18 18:00 05/11/18 19:01 05/12/18 06:08 Temperature 98.2 F 97.9 F 97.4 F L Pulse Rate 76 80 84 Respiratory Rate 18 17 Blood Pressure 130/85 134/83 133/77 Pulse Oximetry 100 97 Narrative: GENERAL: WN, WD cooperative AA male seen in break room. SKIN: Warm and dry. HEENT: AT/NC. Pupils equal and round. MMM. HEART: RRR no m/r/g. LUNGS: CTAB without wheezes or crackles. EXTREMITIES: No LE edema. NEURO: Awake and alert. Results - Labs CBC & Chem 7: 05/08/18 16:51 05/08/18 16:51 Laboratory Results - last 24 hr 05/10/18 18:26 Hemoglobin A1c 5.9 Assessment and Plan - Assessment (1) Suicidal ideations Code(s): R45.851 - Suicidal ideations Status: Acute (2) Adjustment disorder Code(s): F43.20 - Adjustment disorder, unspecified Status: Acute (3) Hypertension Code(s): I10 - Essential (primary) hypertension Status: Chronic - Plan 48 year old male with HTN, history of LLE DVT (provoked from hospitalization), PTSD, MDD, and anxiety admitted to psych for suicidal ideations. Hospitalist consulted for medical management. 1. Suicidal ideations, depression - Management per psych 2. HTN - Well-controlled - Continue amlodipine and HCTZ - Monitor and adjust as needed 3. History of provoked LLE DVT - S/p treatment with Xarelto, no further anticoagulation needed DVT prophylaxis: ambulatory Patient medically stable. Will sign off at this time. Please reconsult if needed. Thank you. Discussed Condition With: Patient Discharge Planning: Per primary team, medically clear
[2018-05-12] MEDS: Sertraline 100 MG Tablet PO SCH (21:30)
[2018-05-13] MEDS: Senna/Docusate Sodium 8.6/50 MG Tablet PO SCH ×2 (08:30→21:38)
[2018-05-13] MEDS: hydroCHLOROthiazide 25 MG Tablet PO SCH (08:30)
[2018-05-13] MEDS: amLODIPine 10 MG Tablet PO SCH (08:30)
--- NOTE | 2018-05-13 13:15 | P.TTN ---
- Patient Problems Problems: 1. Discharge planning 2. Medication compliance 3. Knowledge deficit 4. Lack of coping skills - Progress Toward Goals Provider Present: Dr. Danika Vallejo (Patient is homeless, DrRamo adjusting medications, potential discharge midweek.) Psychiatric Counselors Present: Tim Bruno Jr., [facility] (Patient reports he was living in a hotel and will return to the hotel upon discharge. Patient presents as depressed, with hopeless affect, mostly seclusive to his room, appears to meet criteria remains for further stabilization.) Group Spec/RT/OT/HU Present: MELINDA Starks (Attends select groups) - Documentation Teaching Recipient: Patient
--- NOTE | 2018-05-13 15:32 | P.PNPSY ---
Subjective Chief Complaint: Bipolar Depression, PTSD Remarks: Patient seen in his room with nurse Bri, chart reviewed, patient compliant medications. Patient states he is feeling somewhat better there is still intermittent suicidality. Sleep is continuing partly interrupted multiple times during the night. There is anxiety also related to his continued homelessness. 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 We will attempt to work more with [facility] find [facility] for this in the meantime we will increase his H and Seroquel to 400 mg Review of Systems All other systems reviewed negative except as stated in HPI Mental Status Examination Appearance: Appropriate Consciousness: Alert Orientation: x4 Motor Activity: Normal gait Speech: Unremarkable Language: Adequate Fund of Knowledge: Adequate Attention and Concentration: Adequate Memory: Unremarkable Mood: Sad Affect: Sad Thought Process & Associations: Intact Thought Content: Appropriate Hallucination Type: None Delusion Type: None Suicidal Ideation: No Suicidal Plan: No Suicidal Intention: No Homicidal Ideation: No Homicidal Plan: No Homicidal Intention: No Insight: Fair Judgment: Impulsive Assessment and Plan - Assessment (1) Bipolar depression Code(s): F31.30 - Bipolar disorder, current episode depressed, mild or moderate severity, unspecified Status: Acute - Plan Plan: Patient still somewhat depressed vague suicidal with significant sleep issues. She medication adjustment above Justification for Continued Inpatient Stay: At this time patient would decompensate if not placed in an appropriate level of care Discharge Planning: To be determined Request Healthcare Surrogate/Guardian Advocate?: No
[2018-05-13] MEDS: Sertraline 100 MG Tablet PO SCH (21:39)
[2018-05-14] MEDS: hydroCHLOROthiazide 25 MG Tablet PO SCH (08:50)
[2018-05-14] MEDS: amLODIPine 10 MG Tablet PO SCH (08:50)
[2018-05-14] MEDS: Senna/Docusate Sodium 8.6/50 MG Tablet PO SCH ×2 (09:39→21:14)
--- NOTE | 2018-05-14 15:59 | P.PNPSY ---
Subjective Chief Complaint: Bipolar Depression, PTSD Remarks: Patient seen and levin with nurse Diogenes, chart reviewed, patient compliant medications that appears the med consent sheet is been displaced. I have rewritten that med consent she for him to sign. Though I have discontinued the Ambien. Patient states she is feeling better. Showing some increase in his range and intensity of his affect. He denies suicidality. For now continue treatment Review of Systems All other systems reviewed negative except as stated in HPI Mental Status Examination Appearance: Appropriate Consciousness: Alert Orientation: x4 Motor Activity: Normal gait Speech: Unremarkable Language: Adequate Fund of Knowledge: Adequate Attention and Concentration: Adequate Memory: Unremarkable Mood: Sad Affect: Sad Thought Process & Associations: Intact Thought Content: Appropriate Hallucination Type: None Delusion Type: None Suicidal Ideation: No Suicidal Plan: No Suicidal Intention: No Homicidal Ideation: No Homicidal Plan: No Homicidal Intention: No Insight: Adequate Judgment: Adequate Assessment and Plan - Assessment (1) Bipolar depression Code(s): F31.30 - Bipolar disorder, current episode depressed, mild or moderate severity, unspecified Status: Acute - Plan Plan: Patient's mood is lifting somewhat he denies suicidality or voices at the present time for now continue treatment Justification for Continued Inpatient Stay: At this time patient would decompensate a place to a lower level of care Discharge Planning: To be determined Request Healthcare Surrogate/Guardian Advocate?: No
[2018-05-14] MEDS: Sertraline 100 MG Tablet PO SCH (21:15)
[2018-05-15] MEDS: amLODIPine 10 MG Tablet PO SCH (08:09)
[2018-05-15] MEDS: hydroCHLOROthiazide 25 MG Tablet PO SCH (08:09)
[2018-05-15] MEDS: Senna/Docusate Sodium 8.6/50 MG Tablet PO SCH ×2 (08:38→21:27)
--- NOTE | 2018-05-15 14:51 | P.PNPSY ---
Subjective Chief Complaint: Bipolar Depression, PTSD Remarks: Reviewed electronic medical records and discussed case with staff. Follow-up was conducted in patient's room. Reports that he is "starting to get better". States that he only woke up about 4 times last night as opposed to his typical 8 -10 times. Still states that his moods been up and down. Staff report that he has been becoming more erratic in the evening. Jose states that this is due to the commotion in the milieu. He states that he gets some a little agitated, frustrated, and anxious. States his last suicidal ideation was on Sunday. Mental Status Examination Appearance: Appropriate Consciousness: Alert Orientation: x4 Motor Activity: Normal gait Speech: Unremarkable Language: Adequate Fund of Knowledge: Adequate Attention and Concentration: Adequate Memory: Unremarkable Mood: Sad Affect: Sad Thought Process & Associations: Intact Thought Content: Appropriate Hallucination Type: None Delusion Type: None Suicidal Ideation: No Suicidal Plan: No Suicidal Intention: No Homicidal Ideation: No Homicidal Plan: No Homicidal Intention: No Insight: Adequate Judgment: Adequate Assessment and Plan - Assessment (1) Bipolar depression Code(s): F31.30 - Bipolar disorder, current episode depressed, mild or moderate severity, unspecified Status: Acute - Plan Plan: Continue with current treatment plan. Patient seems to be stabilizing reports that he sleeping better. Will start discussing a possible discharge plan with counselor. Justification for Continued Inpatient Stay: Moving this patient to a less restrictive environment would likely result in decompensation. Request Healthcare Surrogate/Guardian Advocate?: No
[2018-05-15] MEDS: Sertraline 100 MG Tablet PO SCH (21:25)
[2018-05-16] MEDS: amLODIPine 10 MG Tablet PO SCH (08:18)
[2018-05-16] MEDS: hydroCHLOROthiazide 25 MG Tablet PO SCH (08:18)
[2018-05-16] MEDS: Senna/Docusate Sodium 8.6/50 MG Tablet PO SCH ×2 (08:20→21:34)
--- NOTE | 2018-05-16 17:22 | P.PNPSY ---
Subjective Chief Complaint: Bipolar Depression, PTSD Remarks: Reviewed electronic medical records and discussed case with staff. Follow-up was conducted in the milieu. Patient observed eating dinner. Reports that he had a good day. States that he still is not sleeping very well at night however , staff advised that per manager shift the patient slept just fine. He reports his mood is sad. Mental Status Examination Appearance: Appropriate Consciousness: Alert Orientation: x4 Motor Activity: Normal gait Speech: Unremarkable Language: Adequate Fund of Knowledge: Adequate Attention and Concentration: Adequate Memory: Unremarkable Mood: Sad Affect: Sad Thought Process & Associations: Intact Thought Content: Appropriate Hallucination Type: None Delusion Type: None Suicidal Ideation: No Suicidal Plan: No Suicidal Intention: No Homicidal Ideation: No Homicidal Plan: No Homicidal Intention: No Insight: Adequate Judgment: Adequate Assessment and Plan - Assessment (1) Bipolar depression Code(s): F31.30 - Bipolar disorder, current episode depressed, mild or moderate severity, unspecified Status: Acute - Plan Plan: Continue with current treatment plan. Justification for Continued Inpatient Stay: Moving this patient to a less restrictive environment would likely result in decompensation. Request Healthcare Surrogate/Guardian Advocate?: No
[2018-05-16] MEDS: Sertraline 100 MG Tablet PO SCH (21:34)
[2018-05-17] MEDS: hydroCHLOROthiazide 25 MG Tablet PO SCH (08:50)
[2018-05-17] MEDS: Senna/Docusate Sodium 8.6/50 MG Tablet PO SCH ×2 (08:51→21:51)
[2018-05-17] MEDS: amLODIPine 10 MG Tablet PO SCH (08:51)
--- NOTE | 2018-05-17 15:36 | P.PNPSY ---
Subjective Chief Complaint: Bipolar Depression, PTSD Remarks: Patient was seen today for psychiatric reevaluation. The patient is found in the recreational area of the unit. He is calm, cooperative, reports improved mood, but at the same time reports that he is sleeping very poorly he meets his Ambien to sleep better. The patient still having suicidal thoughts, generalized pessimism, hopelessness, helplessness, but in general he is future oriented and committed to get better. Oriented 3, compliant medications, no significant side effects. Mental Status Examination Appearance: Appropriate Consciousness: Alert Orientation: x4 Motor Activity: Normal gait Speech: Unremarkable Language: Adequate Fund of Knowledge: Adequate Attention and Concentration: Adequate Memory: Unremarkable Mood: Sad Affect: Sad Thought Process & Associations: Intact Thought Content: Appropriate Hallucination Type: None Delusion Type: None Suicidal Ideation: No Suicidal Plan: No Suicidal Intention: No Homicidal Ideation: No Homicidal Plan: No Homicidal Intention: No Insight: Adequate Judgment: Adequate Assessment and Plan - Assessment (1) Bipolar depression Code(s): F31.30 - Bipolar disorder, current episode depressed, mild or moderate severity, unspecified Status: Acute - Plan Plan: I will add Ambien 10 mg at bedtime as needed insomnia. Continue current psychotropic regimen. Brief supportive psychotherapy provided. Justification for Continued Inpatient Stay: Patient has an elevated risk of danger to self. Request Healthcare Surrogate/Guardian Advocate?: No
[2018-05-17] MEDS: Sertraline 100 MG Tablet PO SCH (21:18)
[2018-05-18] MEDS: amLODIPine 10 MG Tablet PO SCH (08:34)
[2018-05-18] MEDS: hydroCHLOROthiazide 25 MG Tablet PO SCH (08:34)
[2018-05-18] MEDS: Senna/Docusate Sodium 8.6/50 MG Tablet PO SCH ×2 (09:15→22:05)
--- NOTE | 2018-05-18 13:28 | P.PNPSY ---
Subjective Chief Complaint: Bipolar Depression, PTSD Remarks: Pt seen and discussed with staff. He has been compliant with medications and care. Mood is lifting and he has been participating in unit activities. He denies medication side effects or SI/HI. Mental Status Examination Appearance: Appropriate Consciousness: Alert Orientation: x4 Motor Activity: Normal gait Speech: Unremarkable Language: Adequate Fund of Knowledge: Adequate Attention and Concentration: Adequate Memory: Unremarkable Mood: Sad (lessening) Affect: Appropriate Thought Process & Associations: Intact Thought Content: Appropriate Hallucination Type: None Delusion Type: None Suicidal Ideation: No Suicidal Plan: No Suicidal Intention: No Homicidal Ideation: No Homicidal Plan: No Homicidal Intention: No Insight: Adequate Judgment: Adequate Assessment and Plan - Assessment (1) Bipolar depression Code(s): F31.30 - Bipolar disorder, current episode depressed, mild or moderate severity, unspecified Status: Acute - Plan Plan: Continue current tx plan Justification for Continued Inpatient Stay: risk of decompensation Request Healthcare Surrogate/Guardian Advocate?: No
[2018-05-18] MEDS: Sertraline 100 MG Tablet PO SCH (21:48)
[2018-05-19] MEDS: amLODIPine 10 MG Tablet PO SCH (09:13)
[2018-05-19] MEDS: hydroCHLOROthiazide 25 MG Tablet PO SCH (09:13)
[2018-05-19] MEDS: Senna/Docusate Sodium 8.6/50 MG Tablet PO SCH ×2 (10:00→23:24)
--- NOTE | 2018-05-19 11:05 | P.PNPSY ---
Subjective Chief Complaint: Bipolar Depression, PTSD Remarks: Medical record reviewed and discussed with nursing staff. Diogenes, RN and I met with patient in Day Room. Patient states that he has slept for the past two nights which has helped his anger and mood. He endorses that when he does not sleep he is irritable. He is concerned with the times of his Seroquel as the drug makes him sleepy during the day and he cannot function at work. He is cooperative. No behavioral concerns. Appears stable. Review of Systems All other systems reviewed negative except as stated in HPI Mental Status Examination Appearance: Appropriate Consciousness: Alert Orientation: x4 Motor Activity: Normal gait Speech: Unremarkable Language: Adequate Fund of Knowledge: Adequate Attention and Concentration: Adequate Memory: Unremarkable Mood: Sad (lessening) Affect: Appropriate Thought Process & Associations: Intact Thought Content: Appropriate Hallucination Type: None Delusion Type: None Suicidal Ideation: No Suicidal Plan: No Suicidal Intention: No Homicidal Ideation: No Homicidal Plan: No Homicidal Intention: No Insight: Adequate Judgment: Adequate Assessment and Plan - Assessment (1) Bipolar depression Code(s): F31.30 - Bipolar disorder, current episode depressed, mild or moderate severity, unspecified Status: Acute (2) PTSD (post-traumatic stress disorder) Code(s): F43.10 - Post-traumatic stress disorder, unspecified Status: Acute - Plan Plan: Continue current tx plan Justification for Continued Inpatient Stay: Moving patient to a less restrictive environment may result in his decompensation. Request Healthcare Surrogate/Guardian Advocate?: No
[2018-05-19] MEDS: Sertraline 100 MG Tablet PO SCH (21:37)
[2018-05-20 05:26] VITALS: BP 124/80; PULSE 100; RESP 20; TEMP 98.2; O2SAT 95
[2018-05-20] MEDS: amLODIPine 10 MG Tablet PO SCH (09:05)
[2018-05-20] MEDS: hydroCHLOROthiazide 25 MG Tablet PO SCH (09:06)
[2018-05-20] MEDS: Senna/Docusate Sodium 8.6/50 MG Tablet PO SCH (09:06)
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
== END 2018-05-20 15:05 | disposition home or self-care (01) ==
LOC: NEDAMB 16:28 → NEPJ 05-09 11:10 → NEDA 05-09 12:12 → H260 05-09 12:22 → H270 05-10 05:52 → H260 05-13 17:27
PROVIDERS: ADMIT Psychiatry & Neurology Psychiatry; ATTEND Psychiatry & Neurology Psychiatry